=== PATIENT | female | born 1940 | race Caucasian/White ===

== ENCOUNTER → 2023-05-30 | Outpatient (CLI) | payer SELFPAY ==
--- NOTE | 2023-05-31 07:40 | PFT ---
INTRODUCTION: The patient is a 82-year-old female who presents for pulmonary function studies secondary to a diagnosis of cough. Respiratory therapy reported good patient effort. Bronchodilators were used during testing. INTERPRETATION: Forced expiration spirometry demonstrates no evidence of a large airways obstructive ventilatory defect. There was no significant response to aerosolized bronchodilators. Spirograms are of good quality and plateau normally. Body plethysmography was performed and revealed a decreased TLC to 3.53 L, 65% of predicted, indicative of a moderate restrictive ventilatory impairment. Diffusing capacity by single breath CO is reduced at 63% of predicted. IMPRESSION: Moderate restrictive ventilatory impairment with symmetric reduction in diffusing capacity.
== END | disposition home or self-care (01) ==
PROVIDERS: Referring Provider Internal Medicine Critical Care Medicine; Visit Provider Internal Medicine Critical Care Medicine
DX: R05.9 Cough, unspecified (principal)
CPT/HCPCS: 94060; 94726; 94729

== ENCOUNTER 2024-03-13 19:05 | Inpatient (IN) | payer OTHER, SELFPAY ==
[2024-03-13] VITALS (11 sets, daily range): BP systolic 162–208; BP diastolic 73–89; PULSE 80–111; RESP 12–21; TEMP 36.2–37.1; O2SAT 89–100; BMI 22.0
--- NOTE | 2024-03-13 19:40 | RAD_ITS ---
STUDY: X-RAY CHEST REASON FOR EXAM: Female, 83 years old. Productive cough, dyspnea and history of pulmonary TECHNIQUE: PA and lateral views of the chest. COMPARISON: None. FINDINGS: There are interstitial fibrotic changes of the lungs. Elevated right hemidiaphragm. Right-sided pleural thickening and volume loss. Normal size heart. Normal mediastinum and whitley. Normal visualized pulmonary arteries. Normal visualized aortic arch and descending thoracic aorta. Normal visualized thoracic spine. Normal visualized ribs, clavicles, and shoulders. There is no demonstrated abnormality of the visualized soft tissue structures of the upper abdomen. RAD/Chest PA and Lateral IMPRESSION: Fibrosis and volume loss but no definite pneumonia or atelectasis. CT may be useful. Electronically Signed: Everett Krishnamurthy MD at 20:09 EDT ,
[2024-03-13 19:47] LABS: Anion Gap 6 (5-15); BUN 26 mg/dL (7-18); BUN/Creat Ratio 34.9 RATIO (10-20); Calcium,Total 9.4 mg/dL (8.5-10.1); Chloride 88 mmol/L (98-107); Creatinine, Serum 0.74 mg/dL (0.55-1.02); EST Glomerular Filtration Rate 79 mL/min (>60); Est Glom Filt Rate - Afr Amer 95 mL/min (>60); Glucose 119 mg/dL (74-106); Potassium 4.8 mmol/L (3.5-5.1); Sodium Level 124 mmol/L (136-145)
--- NOTE | 2024-03-13 19:52 | ED.VIS.DYS ---
HPI History of Present Illness Chief Complaint: Shortness of Breath Detail of Chief Complaint: Shortness of breath, cough history of pulmonary fibrosis Informant: patient, spouse/S.O. and family Onset/Context/Timing Onset: Weeks (Symptoms started 1 week ago.) Context: sudden Timing: Continuous and Waxes and wanes Quality: Positive for Dyspnea on exertion; Negative for Orthopnea, PND or Wheezing Current Severity: Mild Maximum Severity: Moderate Worsened by: Exertion and Coughing Relieved by: Nothing Associated Symptoms cough, rhinorrhea, sore throat and white sputum; Negative for post nasal drip, ear pain, fever, subjective, chills, sweats, clear sputum or yellow sputum Chest Pain: Positive for None Narrative Narrative: Patient is an 83-year-old woman. She has history of pulmonary fibrosis. Dr. Key office note authored September 02, 2023 indicates patient's pulmonary function test were consistent with pulmonary fibrosis. No further testing was done because of patient's concern for cost. At that time there was concern that she was desaturating with ambulation. She declined any testing. Patient was ordered and has a oxygen concentrator at home. Patient was seen this week by Layne Luong. She was seen for shortness of breath. It was felt by nurse practitioner Laura that this was due to her pulmonary fibrosis. NIOX performed in office returned with normal results. This indicates that course of steroids would not be beneficial. Patient does have a cough. The cough is more productive than normal. Color of the sputum is not unchanged from baseline. She denies fever, chills night sweats. She does report mild congestion, which is chronic. She denies ear pain. She does report mild sore throat. There is no change in voice. She does endorse dyspnea with exertion. This is a chronic issue. states they have been monitor pulse ox and has been ranging between 91 and 92%. As previously mentioned she does have a oxygen concentrator at home. She has been using it. There is no complaint of nausea, vomit diarrhea. She has no urologic symptoms. There is no history of PE or DVT. Denies leg pain, swelling discoloration. She denies chest pain, history of congestive heart failure. She denies orthopnea or PND. PE Risk Factors: Negative for Cancer, OCP + Smoking + > 35, Prior DVT or PE, Recent immobilization, Recent surgery or Recent travel Prior similar symptoms: Yes (Office visit in August with Dr. Perez and office visit with nurse stephie) Recent Illness/Hospitalization: Yes [facility] Medical History Pulmonary fibrosis Home Medications budesonide-formoterol HFA 160 mcg-4.5 mcg/actuation aerosol inhaler (Symbicort) 2 puff inhalation BID 05/23/23 [History Last Taken Unknown] levothyroxine 88 mcg capsule 88 mcg PO DAILY 05/23/23 [History Last Taken Unknown] losartan 50 mg-hydrochlorothiazide 12.5 mg tablet 1 tab PO DAILY 05/23/23 [History Last Taken Unknown] calcium carbonate-vitamin D3 600 mg-125 unit tablet tab PO 03/10/24 [History Last Taken Unknown] Allergy/AdvReac Type Severity Reaction Status Date / Time Sulfa (Sulfonamide Allergy PT UNSURE Verified 03/13/24 19:08 Antibiotics) OF REACTION Family History Sister Asthma Social History Smoking Status: Never smoker ROS ROS ED Constitutional Constitutional ED: Denies chills, fever(s), sweats or weight loss Eyes Eyes: Denies blurry vision or change in vision ENT ENT ED: Reports rhinorrhea; Denies ear pain or sore throat Cardiovascular Cardiovascular: Denies chest pain, orthopnea, palpitations or paroxysmal nocturnal dyspnea Respiratory/Chest Respiratory/Chest: Reports cough, dyspnea, dyspnea on exertion and sputum; Denies orthopnea or paroxysmal nocturnal dyspnea Gastrointestinal Gastrointestinal: Denies abdominal pain, diarrhea, nausea or vomiting Musculoskeletal Musculoskeletal: Denies arthralgias or myalgias Integumentary Denies rash Neurologic Neurologic: Denies headache(s) or paresthesias Hematologic/Lymphatic Hematologic/Lymphatic: Denies easy bleeding or easy bruising EXAM Physical Exam Const Vital Signs: 03/13/24 19:09 03/13/24 19:05 03/13/24 19:18 Temperature 97.1 F L 97.1 F L Temperature Source Temporal Temporal Pulse Rate 111 H 111 H Respiratory Rate 18 18 Respiratory Effort Short of Breath Respiratory Depth Shallow Respiratory Pattern Tachypnea Blood Pressure 208/89 H 208/89 H Blood Pressure Mean 128 128 Pulse Ox 89 89 Oxygen Delivery Method Room Air Room Air Nasal Cannula Oxygen Flow Rate (L/min) 2 03/13/24 19:33 03/13/24 20:05 03/13/24 20:47 Temperature Temperature Source Pulse Rate 99 Respiratory Rate 16 Respiratory Effort Respiratory Depth Respiratory Pattern Blood Pressure 181/87 H 165/73 H Blood Pressure Mean 118 103 Pulse Ox 98 100 Oxygen Delivery Method Nasal Cannula Nasal Cannula Oxygen Flow Rate (L/min) 2 03/13/24 21:00 03/13/24 22:00 Temperature Temperature Source Pulse Rate 80 82 Respiratory Rate 12 19 H Respiratory Effort Respiratory Depth Respiratory Pattern Blood Pressure 162/75 H 167/74 H Blood Pressure Mean 104 105 Pulse Ox 99 98 Oxygen Delivery Method Nasal Cannula Nasal Cannula Oxygen Flow Rate (L/min) 2 2 Blood pressure readings are elevated. There is is a history of elevated blood pressure readings reviewing prior records. Positive well developed and cachectic General Appearance ED: well developed, cachectic, NAD and pallor Nutritional Appearance: cachectic HEENT Reports dry mucous membranes HEENT Narrative: Nares patent. Posterior pharynx is normal. atraumatic Mouth ED: Yes dry mucous membranes Mouth: dry mucous membranes Eyes PERRL and EOMs intact bilaterally General Eye ED: Negative for pale conjunctiva or scleral icterus Neck no lymphadenopathy, supple, no meningeal signs and no JVD Resp normal respiratory effort and No clear to auscultation bilaterally Resp Narrative: End inspiratory rales are noted. This is most likely due to her pulmonary fibrosis. Cardio regular rhythm, S1 normal heart sound, S2 normal heart sound and no murmurs Rate: tachycardic GI non-tender, non-distended and no masses Auscultation: normoactive bowel sounds Back/Spine normal to inspection Extremity normal to inspection Extremity Narrative: There is no asymmetry, swelling, discoloration, leg vein distention, palpable cords or tenderness along the distribution of the deep venous system. Neuro oriented x3 and CN's II-XII intact bilaterally Tim Coma Scale: document GCS findings Spontaneous Obeys Commands Oriented 15 Sensorium / Orientation: alert Skin no wounds and skin turgor normal General Skin Exam: pallor; Negative for jaundice Lesions: no lesions MDM MDM MDM Narrative Medical decision making narrative: Since there is been a change in patient's sputum production will obtain x-ray to determine if she has had pneumonia. She has had pneumonia in the past. CBC was obtained assess white count differential. BMP to assess renal function especially since she her blood pressure is elevated. Her review of prior records in case patient has pulmonary fibrosis. It was noted in Dr. Perez's note the patient did not want any other testing due to concerns for cost. History & Record Review Additional record(s) reviewed:: Prior outpatient record and Prior labs Lab Data Attestation: I reviewed the patient's lab results. Lab results narrative: Sodium is 124 with a chloride of 88. CO2 is normal. Anion gap is normal. Patient is not on a diuretic. CBC is unremarkable. There are no prior labs for comparison. Fractional excretion sodium is 0.6 which would indicate prerenal. Urine osmolarity is 243. This would not indicate SIADH. Labs: Laboratory Results - last 24 hr 03/13/24 03/13/24 19:26 21:41 WBC 8.7 RBC 4.64 Hgb 12.3 Hct 37.8 MCV 81.5 MCH 26.5 L MCHC 32.5 RDW Std Deviation 39.5 RDW Coeff of [place] 13.3 Plt Count 447 MPV 8.6 Sodium 124 L Potassium 4.8 Chloride 88 L Carbon Dioxide 30.0 Anion Gap 6 BUN 26 H Creatinine 0.74 Estim Creat Clear Calc 50.00 Est GFR (MDRD) Af Amer 95 Est GFR (MDRD) Non-Af 79 BUN/Creatinine Ratio 34.9 H Glucose 119 H Serum Osmolality 277 L Lactic Acid 1.0 Calcium 9.4 Urine Osmolality 243 Ur Random Sodium 57 Urine Chloride 57 Radiography Chest X-Ray - ED: 2 View (Patient has increased markings on the right. The trachea is deviated to the right. There appears to be fullness/mass in the hilum. There is evidence of chronic changes on the left. Osseous structures unremarkable.) and Read by ED Physician Diagnostic Testing: Clinical Impression(s) from Imaging Studies Chest X-Ray 03/13/24 19:40 IMPRESSION: Fibrosis and volume loss but no definite pneumonia or atelectasis. CT may be useful. Electronically Signed: Everett Krishnamurthy MD at 20:09 EDT , Chest CT 03/13/24 21:01 IMPRESSION: 1. Right lower lobe pneumonia. 2. Bilateral cylindrical bronchiectasis, scarring, and volume loss. Electronically Signed: Everett Krishnamurthy MD at 22:36 EDT , EKG Initial EKG: Attestation: I personally reviewed and interpreted this EKG as follows: Interpretation: Sinus Rhythm (Rate is 96. There is decreased anterior force. OK interval is 168 ms. QS duration 78 ms. QT duration 324 ms. [place] is normal.) Management Discussion w/another healthcare provider: Hospitalist Treatment and Re-Evaluation :: Had lengthy discussion with , son and patient regarding need for admission. Patient was initially hesitant. After explaining risk benefits patient and family agreeable with admission to the hospital. Discharge Plan Triage Chief Complaint: Shortness of Breath ED Provider: Ramón Guo Dx/Rx/DC Orders Clinical Impression: Right lower lobe pneumonia, Pulmonary fibrosis, Hypoxia, Acute hyponatremia, Hypertension, Sinus tachycardia seen on repairer helper Prescriptions: No Action budesonide-formoterol [Symbicort] 160-4.5 mcg/actuation HFA aerosol inhaler 2 puff inhalation BID levothyroxine 88 mcg capsule 88 mcg PO DAILY losartan-hydrochlorothiazide 50-12.5 mg tablet 1 tab PO DAILY calcium carbonate-vitamin D3 600-125 mg-unit tablet PO Primary Care Provider: Cally Ludwig NP Referrals: Cally Ludwig NP, [facility] DIRECTOR-C [Primary Care Provider] - Disposition Disposition: Acute Care Hospital [facility]
[2024-03-13 19:55] LABS: Hematocrit 37.8 % (37-47); Hemoglobin 12.3 g/dL (12.0-15.0); Mean Corp Hgb Conc 32.5 g/dL (32-36); Mean Corpuscular Hgb 26.5 pg (27.0-32.0); Mean Corpuscular Volume 81.5 fL (81-99); Mean Platelet Vol. 8.6 fl (6.2-12.0); Platelet Count 447 K/mm3 (150-450); RBC Distribution Width CV 13.3 % (11.6-14.6); RBC Distribution Width SD 39.5 fl (35.1-43.9); Red Blood Count 4.64 M/mm3 (4.2-5.4); White Blood Count 8.7 K/mm3 (4.4-11.0)
[2024-03-13] MEDS: Labetalol (Prefilled) 20 MG/4 ML 10 MG IV (20:07)
--- NOTE | 2024-03-13 21:01 | CT_ITS ---
INDICATION: Hyponatremia, weight loss, deviation of trachea EXAMINATION: CT CHEST WITH CONTRAST - CT Chest W/ Contrast Injection TECHNIQUE: Helically acquired images were obtained of the chest following IV contrast. A radiation dose optimization technique was used for this scan. IV Contrast dosage and agent: COMPARISON: Chest x-ray earlier today FINDINGS: LUNGS, PLEURA AND LARGE AIRWAYS: Severe bilateral apical scarring and pleural thickening. Significant scarring and volume loss in the right lung. Diffuse cylindrical bronchiectasis. Alveolar density in the posterior right lower lobe consistent with pneumonia. No pleural effusion or thickening. No pneumothorax. THYROID: No thyroid lesions. HEART AND PERICARDIUM: Heart size is normal. No pericardial effusion. VESSELS: Thoracic aorta is not dilated. No aortic dissection. No obvious central pulmonary embolism although this study was not performed with the pulmonary embolism protocol. MEDIASTINUM AND MARC: No mediastinal or hilar adenopathy. Esophagus is unremarkable. No hiatal hernia. UPPER ABDOMEN: No acute pathology. BONES: Mild levoscoliosis of the thoracolumbar spine. CT/Chest WITH Contrast IMPRESSION: 1. Right lower lobe pneumonia. 2. Bilateral cylindrical bronchiectasis, scarring, and volume loss. Electronically Signed: Everett Krishnamurthy MD at 22:36 EDT ,
[2024-03-13 21:54] LABS: Urine Chloride 57 mmol/L (Not Establ.); Urine Sodium 57 mmol/L (Not Establ.)
[2024-03-13 22:04] LABS: Osmolality, Urine 243 mOsm/KG
[2024-03-13 22:04] LABS: Osmolality, Serum 277 mOsm/KG (280-301)
--- NOTE | 2024-03-13 22:56 | HP.PCM.HOS_ITS ---
[facility] - General General Date of Admission: 03/13/24 Date of Service: 03/13/24 Chief Complaint: SOB. HPI Narrative MARILU SANDY, is a 83 F with a past medical history of essential hypertension; on Losartan/HCTZ, hypothyroidism, pulmonary fibrosis; on Symbicort, chronic bronchitis and osteoarthritis; with chronic Left knee pain who presents to [facility] ER complaining of shortness of breath. Ms. Sandy reports her symptoms began a little over 1 week prior to admission with the intermittent bouts of dyspnea on exertion that progressed to shortness of breath at rest. She also admits to a runny nose with a nonproductive cough and malaise but she denies associated fever, chills, nausea, vomiting, wheezing, chest pain or excessive water intake. In the ER she was noted to have a CT scan of the chest positive for right lower lobe infiltrate consistent with Community- acquired Pneumonia complicated by clinical evidence of respiratory insufficiency and laboratory evidence of hyponatremia of 124 mmol/L present on admission due to adverse drug reaction to HCTZ and she was then admitted to the general medical floor for ongoing care for stay that is expected to extend beyond 2 midnights. [facility] Medical History Hypothyroidism Pulmonary fibrosis Home Medications levothyroxine 88 mcg capsule 88 mcg PO DAILY 05/23/23 [History Last Taken Unknown] losartan 50 mg-hydrochlorothiazide 12.5 mg tablet 1 tab PO DAILY 05/23/23 [History Last Taken Unknown] Allergy/AdvReac Type Severity Reaction Status Date / Time Sulfa (Sulfonamide Allergy PT UNSURE Verified 03/13/24 19:08 Antibiotics) OF REACTION hydrochlorothiazide AdvReac Unknown Other Verified 03/14/24 00:12 Family History Sister Asthma Social History Smoking Status: Never smoker ROS ROS Narrative Review of systems: General: Patient denies fever or chills. HENT: Patient admits to runny nose but denies sore throat or ear pain. EYES: Denies changes in vision or discharge from eyes. Resp: Patient admits to dyspnea on exertion that progressed to shortness of breath at rest with nonproductive cough. Cardiac: Denies chest pain, palpitations or heart racing. GI: Denies abdominal pain, denies changes in bowel, denies nausea or vomiting. : Denies changes in urination Extremity: Denies swelling Musculoskeletal: Feels somewhat generally weak and unwell but denies arthralgias or myalgias. Neuro: Patient denies headache, paresthesias or focal neurologic weakness. Heme: Denies any bleeding or bruising Skin: Denies rashes Psychiatric: No complaints voiced related to uncontrolled depression or anxiety. Endocrine: No polyuria, polydipsia or polyphagia. The rest of the 14 point ROS was negative except for positives in HPI. Vital Signs Vital Signs Vital Signs: 03/13/24 19:09 03/13/24 19:05 03/13/24 19:18 Temperature 97.1 F L 97.1 F L Temperature Source Temporal Temporal Pulse Rate 111 H 111 H Respiratory Rate 18 18 Respiratory Effort Short of Breath Respiratory Depth Shallow Respiratory Pattern Tachypnea Blood Pressure 208/89 H 208/89 H Blood Pressure Mean 128 128 Pulse Ox 89 89 Oxygen Delivery Method Room Air Room Air Nasal Cannula Oxygen Flow Rate (L/min) 2 03/13/24 19:33 03/13/24 20:05 03/13/24 20:47 Temperature Temperature Source Pulse Rate 99 Respiratory Rate 16 Respiratory Effort Respiratory Depth Respiratory Pattern Blood Pressure 181/87 H 165/73 H Blood Pressure Mean 118 103 Pulse Ox 98 100 Oxygen Delivery Method Nasal Cannula Nasal Cannula Oxygen Flow Rate (L/min) 2 03/13/24 21:00 03/13/24 22:00 Temperature Temperature Source Pulse Rate 80 82 Respiratory Rate 12 19 H Respiratory Effort Respiratory Depth Respiratory Pattern Blood Pressure 162/75 H 167/74 H Blood Pressure Mean 104 105 Pulse Ox 99 98 Oxygen Delivery Method Nasal Cannula Nasal Cannula Oxygen Flow Rate (L/min) 2 2 Weight Weight: 140 lb 14.006 oz Body Mass Index (BMI) 22.0 Physical Exam Const alert, oriented x3, no apparent distress and average body habitus General Appearance: cooperative HEENT normocephalic, head/scalp atraumatic and hearing grossly normal bilaterally HEENT Narrative: Mucous membranes dry. Eyes PERRL and EOMs intact bilaterally Neck no lymphadenopathy and supple Resp Resp Narrative: Diminished breath sounds throughout with end expiratory rales noted. Auscultation: rales Cardio regular rate and regular rhythm GI normal to inspection, nondistended, normoactive bowel sounds, soft to palpation, non-tender and non-distended Extremity normal to inspection, full ROM and no clubbing, cyanosis or edema Skin Skin Narrative: Patient has no evidence of abscess, rash or jaundice. Neuro oriented x3, CN's II-XII intact bilaterally, moves all extremities and no focal motor deficits Sensorium / Orientation: awake, alert, oriented to person, oriented to place and oriented to time Speech: speech normal Psych affect normal Results Medical Records Data Attestation: I reviewed the patient's medical records Lab / Micro Data Attestation: I reviewed the patient's lab results. 03/13/24 19:26 03/13/24 19:26 Labs: Laboratory Results - last 24 hr 03/13/24 19:26: WBC 8.7, RBC 4.64, Hgb 12.3, Hct 37.8, MCV 81.5, MCH 26.5 L, MCHC 32.5, RDW Std Deviation 39.5, RDW Coeff of [place] 13.3, Plt Count 447, MPV 8.6, Sodium 124 L, Potassium 4.8, Chloride 88 L, Carbon Dioxide 30.0, Anion Gap 6, BUN 26 H, Creatinine 0.74, Estim Creat Clear Calc 50.00, Est GFR (MDRD) Af Amer 95, Est GFR (MDRD) Non-Af 79, BUN/Creatinine Ratio 34.9 H, Glucose 119 H, Serum Osmolality 277 L, Lactic Acid 1.0, Calcium 9.4 03/13/24 21:41: Urine Osmolality 243, Ur Random Sodium 57, Urine Chloride 57 Imaging Radiology Impression Chest X-Ray 03/13/24 19:40 IMPRESSION: Fibrosis and volume loss but no definite pneumonia or atelectasis. CT may be useful. Electronically Signed: Everett Krishnamurthy MD at 20:09 EDT , Chest CT 03/13/24 21:01 IMPRESSION: 1. Right lower lobe pneumonia. 2. Bilateral cylindrical bronchiectasis, scarring, and volume loss. Electronically Signed: Everett Krishnamurthy MD at 22:36 EDT , Assessment & Plan Assessment/Plan (1) Right lower lobe pneumonia: QUALIFIERS: Pneumonia type: due to unspecified organism Qualified Code(s): J18.9 - Pneumonia, unspecified organism (2) Pulmonary fibrosis: (3) Respiratory insufficiency: (4) Acute hyponatremia: (5) Adverse drug reaction: QUALIFIERS: Encounter type: initial encounter Qualified Code(s): T50.905A - Adverse effect of unspecified drugs, medicaments and biological substances, initial encounter PLAN: Plan 1. Right lower lobe pneumonia evident on CT likely community-acquired in origin in the setting of known pulmonary fibrosis - Admit to general medical floor. Continue broad-spectrum antibiotics with IV Rocephin and IV azithromycin and await culture and sensitivity data. Start Solu-Medrol 40 mg IV every 8 hours close prophylactic Protonix. Check urine antigens to Legionella and Streptococcus pneumonia. Resume Symbicort as previous. Start Mucinex 600 mg p. o. twice daily scheduled. Give Tylenol as needed pain or fever. 2. Respiratory insufficiency arising from #1 - Wean supplemental oxygen as tolerated. 3. Hyponatremia of 124 mmol/L present on admission likely due to adverse drug reaction to HCTZ complicating #1 & #2 - Start NS IV fluid at 70 cc/h and recheck BMP every 6 hours to ensure rise of no more than 8 to 10 mmol/L per 24-hour period. Check serum and urine osmolality. HCTZ will be added to the list of allergies to prevent recurrence. 4. Essential hypertension - Resume home regimen with losartan 50 mg daily only plus give as needed IV hydralazine for systolic blood pressure greater than 160 mmHg. 5. Hypothyroidism - Continue Synthroid and check TSH. 6. History of chronic bronchitis - Noted. 7. Osteoarthritis; with chronic Left knee pain - Give Tylenol as needed. 8. DVT prophylaxis - Lovenox 40 mg sq daily. Total time: Approximately 75 minutes. Charges/Coding Visit Charges Inpatient E&M: 72892 Init Hosp L3
[2024-03-13] MEDS: Ceftriaxone 2 GM in 0.9% Normal Saline (50mL MB+) 50 ML IV (23:18)
[2024-03-13] MEDS: cloNIDine HCl 0.1 MG Tablet PO (23:29)
[2024-03-13 23:35] LABS: Lactic Acid 0.8 mmol/L (0.4-1.9)
[2024-03-14] VITALS (9 sets, daily range): BP systolic 125–157; BP diastolic 61–80; PULSE 76–98; RESP 16–20; TEMP 36.4–36.7; O2SAT 87–100; BMI 20.9
[2024-03-14] MEDS: Azithromycin 500 MG in Dextrose 5%-Water (250mL Bag) 250 ML 250 MG IV ×2 (00:33→10:18)
[2024-03-14] MEDS: 0.9% Normal Saline (1000mL) 1,000 ML 70 ML IV (01:12)
[2024-03-14] MEDS: Levothyroxine 88 MCG Tablet PO (05:18)
[2024-03-14] MEDS: 0.9% Saline Lock 10 ML Syringe IV ×3 (05:19→21:21)
[2024-03-14 05:52] LABS: Absolute Lymphocyte Count 1.32 X10^3/uL (0.83-4.51); Absolute Neutrophil Count 4.6 X10^3/uL (2.0-7.7); Basophil# 0.08 X10^3/uL; Basophil% 1.1 % (0-1); Eosinophil# 0.21 X10^3/uL; Eosinophils% 2.8 % (0-5); Hematocrit 32.7 % (37-47); Hemoglobin 10.5 g/dL (12.0-15.0); Lymphocyte # 1.32 X10^3/ul (0.83-4.51); Lymphocyte % 17.4 % (19-41); Mean Corp Hgb Conc 32.1 g/dL (32-36); Mean Corpuscular Volume 80.9 fL (81-99); Mean Platelet Vol. 8.9 fl (6.2-12.0); Monocyte# 1.34 X10^3/uL; Monocyte% 17.7 % (0-10); NRBC Flagged by Analyzer 0 % (0-5); Neutrophil # 4.59 X10^3/uL (2.7-7.7); Neutrophil % 60.3 % (47-70); Platelet Count 400 K/mm3 (150-450); RBC Distribution Width CV 13.3 % (11.6-14.6); RBC Distribution Width SD 39.5 fl (35.1-43.9); Red Blood Count 4.04 M/mm3 (4.2-5.4); White Blood Count 7.6 K/mm3 (4.4-11.0)
--- NOTE | 2024-03-14 06:10 | RAD_ITS ---
STUDY: X-RAY CHEST REASON FOR EXAM: Female, 83 years old. Chest pain/pressure TECHNIQUE: PA and lateral views of the chest. COMPARISON: 03/13/2024 FINDINGS: Lung aldana show no interval change compared to the previous study, there is volume loss in the right hemithorax with [id number] midline shift of the trachea and nonspecific pleural thickening in the right apex. Diffuse interstitial fibrotic scarring noted throughout both lung aldana right worse than left. There is no demonstrated pleural abnormality. Normal size heart. Normal mediastinum and whitley. Normal visualized pulmonary arteries. Normal visualized aortic arch and descending thoracic aorta. Normal visualized thoracic spine. Normal visualized ribs, clavicles, and shoulders. There is no demonstrated abnormality of the visualized soft tissue structures of the upper abdomen. RAD/Chest PA and Lateral IMPRESSION: No interval change Electronically Signed: Mani Borrego MD at 8:49 EDT ,
[2024-03-14 06:17] LABS: ALB/GLOB Ratio 0.6 RATIO (0.9-2.4); AST(SGOT) 21 U/L (15-37); Alanine Aminotransfer ALT/SGPT 21 U/L (13-56); Albumin, Serum 2.7 g/dL (3.2-5.0); Alkaline Phosphatase 112 U/L (45-117); Anion Gap 7 (5-15); BUN 24 mg/dL (7-18); BUN/Creat Ratio 34.1 RATIO (10-20); Chloride 92 mmol/L (98-107); EST Glomerular Filtration Rate 84 mL/min (>60); Est Glom Filt Rate - Afr Amer 102 mL/min (>60); Estimated Creatinine Clearance 49.15 ml/min; Globulin 4.6 g/dL (2.2-4.2); Glucose 79 mg/dL (74-106); Potassium 4.2 mmol/L (3.5-5.1); Protein, Total 7.3 g/dL (6.4-8.2); Sodium Level 127 mmol/L (136-145)
[2024-03-14] MEDS: Ceftriaxone 1 GM/50 ML BAG IV (08:52)
[2024-03-14] MEDS: Ascorbic Acid 500 MG Tablet 1000 MG PO ×2 (08:55→18:37)
[2024-03-14] MEDS: Lactobacillis Acidophilus 2 CAP PO ×2 (08:55→21:20)
[2024-03-14] MEDS: Pantoprazole Sodium 40 MG Tablet PO (08:56)
[2024-03-14] MEDS: Losartan Potassium 50 MG Tablet PO (08:56)
[2024-03-14] MEDS: Zinc Sulfate 50 mg zinc (220 mg) ORAL capsule PO (08:57)
[2024-03-14] MEDS: guaiFENesin 600 MG Tablet PO ×2 (09:06→21:20)
[2024-03-14] MEDS: Cholecalciferol (Vit D3) 125 MCG CAPSULE (5,000 UNITS) PO (09:06)
[2024-03-14 12:34] LABS: Anion Gap 7 (5-15); BUN 23 mg/dL (7-18); BUN/Creat Ratio 24.9 RATIO (10-20); Chloride 91 mmol/L (98-107); Creatinine, Serum 0.92 mg/dL (0.55-1.02); EST Glomerular Filtration Rate 61 mL/min (>60); Est Glom Filt Rate - Afr Amer 74 mL/min (>60); Estimated Creatinine Clearance 42.74 ml/min; Glucose 304 mg/dL (74-106); Potassium 4.5 mmol/L (3.5-5.1); Sodium Level 124 mmol/L (136-145)
--- NOTE | 2024-03-14 14:37 | PCM.PN.HOSP ---
Reason for Visit Reason for Visit: Shortness of breath Subjective Subjective Patient indicates her breathing is better. Does not know if she is ever been hyponatremic previously. States she drinks about 2 L of water daily and eats a normal diet however lately her diet has been decreased as she said decreased appetite. Feels like she has more energy today. Objective Data Objective Data Vital Signs: Vital Signs Temp Pulse Resp BP Pulse Ox O2 Del Method O2 Flow Rate 97.6 F L 79 16 144/64 H 98 Nasal Cannula 2 03/14/24 08:40 03/14/24 08:40 03/14/24 08:40 03/14/24 08:40 03/14/24 08:40 03/14/24 08:44 03/14/24 08:44 Oxygen Flow Rate (L/min) 2 Oxygen Delivery Method Nasal Cannula Weight: 60.555 kg Body Mass Index (BMI) 20.9 Intake & Output: Intake and Output for Last 24 Hours 03/12/24 03/13/24 03/14/24 23:59 23:59 23:59 Intake Total 50 / 50 955 / 955 Balance 50 50 955 / 955 Lab / Micro Data 03/14/24 05:12 03/14/24 11:52 Labs: Laboratory Results - last 24 hr 03/13/24 19:26: WBC 8.7, RBC 4.64, Hgb 12.3, Hct 37.8, MCV 81.5, MCH 26.5 L, MCHC 32.5, RDW Std Deviation 39.5, RDW Coeff of [place] 13.3, Plt Count 447, MPV 8.6, Sodium 124 L, Potassium 4.8, Chloride 88 L, Carbon Dioxide 30.0, Anion Gap 6, BUN 26 H, Creatinine 0.74, Estim Creat Clear Calc 50.00, Est GFR (MDRD) Af Amer 95, Est GFR (MDRD) Non-Af 79, BUN/Creatinine Ratio 34.9 H, Glucose 119 H, Serum Osmolality 277 L, Lactic Acid 1.0, Calcium 9.4 03/13/24 21:41: Urine Osmolality 243, Ur Random Sodium 57, Urine Chloride 57 03/13/24 23:00: Lactic Acid 0.8 03/14/24 05:12: WBC 7.6, RBC 4.04 L, Hgb 10.5 L, Hct 32.7 L, MCV 80.9 L, MCH 26.0 L, MCHC 32.1, RDW Std Deviation 39.5, RDW Coeff of [place] 13.3, Plt Count 400, MPV 8.9, Immature Gran % (Auto) 0.700, Neut % (Auto) 60.3, Lymph % (Auto) 17.4 L, [place] % (Auto) 17.7 H, Eos % (Auto) 2.8, Baso % (Auto) 1.1 H, Absolute Neuts (auto) 4.6, Absolute Lymphs (auto) 1.32, Nucleated RBC % 0, Sodium 127 L, Potassium 4.2, Chloride 92 L, Carbon Dioxide 28.0, Anion Gap 7, BUN 24 H, Creatinine 0.70, Estim Creat Clear Calc 49.15, Est GFR (MDRD) Af Amer 102, Est GFR (MDRD) Non-Af 84, BUN/Creatinine Ratio 34.1 H, Glucose 79, Calcium 9.0, Total Bilirubin 0.30, AST 21, ALT 21, Alkaline Phosphatase 112, Total Protein 7.3, Albumin 2.7 L, Globulin 4.6 H, Albumin/Globulin Ratio 0.6 L 03/14/24 11:52: Sodium 124 L, Potassium 4.5, Chloride 91 L, Carbon Dioxide 26.0, Anion Gap 7, BUN 23 H, Creatinine 0.92, Estim Creat Clear Calc 42.74, Est GFR (MDRD) Af Amer 74, Est GFR (MDRD) Non-Af 61, BUN/Creatinine Ratio 24.9 H, Glucose 304 H, Calcium 9.0 Micro: Microbiology 03/14/24 01:00 Urine, Random Legionella Antigen - Final 03/14/24 01:00 Urine, Random Streptococcus pneumoniae Antigen (M - Final Radiography Diagnostic Testing: Radiology Impression Chest X-Ray 03/13/24 19:40 IMPRESSION: Fibrosis and volume loss but no definite pneumonia or atelectasis. CT may be useful. Electronically Signed: Everett Krishnamurthy MD at 20:09 EDT , Chest CT 03/13/24 21:01 IMPRESSION: 1. Right lower lobe pneumonia. 2. Bilateral cylindrical bronchiectasis, scarring, and volume loss. Electronically Signed: Everett Krishnamurthy MD at 22:36 EDT , Chest X-Ray 03/14/24 06:10 IMPRESSION: No interval change Electronically Signed: Mani Borrego MD at 8:49 EDT , Physical Exam Const alert, oriented x3, no apparent distress, average body habitus and well nourished Constitutional Narrative: Elderly, white female, sitting up in bed, appears comfortable, nontoxic, at bedside HEENT head/scalp atraumatic and moist oral mucous membranes HEENT Narrative: Mallampati 2-3, no thrush Head and Scalp: normocephalic Resp normal respiratory effort, no retractions, no use of accessory muscles and No clear to auscultation bilaterally Resp Narrative: Crackles right base Auscultation: crackles; Negative for rhonchi or wheezes Cardio regular rate, regular rhythm, S1 normal heart sound, S2 normal heart sound, no murmurs, no rub, no gallops and no clicks GI normal to inspection, nondistended, normoactive bowel sounds, soft to palpation and non-tender Extremity no clubbing, cyanosis or edema Extremity Narrative: Pedal pulses are 2+ Neuro oriented x3, moves all extremities and no focal motor deficits Speech: speech normal Psych Psych Narrative: Affect is a bit strange, eye contact is good, patient interacts appropriately and answers all questions appropriately Assessment & Plan Assessment/Plan (1) Acute hyponatremia: (2) Hypoxia: (3) Right lower lobe pneumonia: QUALIFIERS: Pneumonia type: due to unspecified organism Qualified Code(s): J18.9 - Pneumonia, unspecified organism (4) Anemia: PLAN: Plan Right lower lobe pneumonia -Right lower lobe infiltrate with air bronchograms noted on CT of the chest -Interestingly, patient does not have leukocytosis or left shift however she does have worsening shortness of breath and sputum production -Strep pneumo and Legionella antigens are negative -Continue community-acquired coverage with azithromycin and ceftriaxone -Sputum culture is pending -Continue Mucinex -Continue DuoNebs as ordered -Continue methylprednisolone 40 every 8 -At baseline patient has been intermittently oxygen dependent but not wearing it as of late -Sats are currently 96 to 98% on 2 L -Was trialed on room air and oxygen desaturated to 87% -Follows as outpatient with [place] [facility] Hyponatremia -Baseline sodium is unknown we have no previous data -Continue to hold hydrochlorothiazide -Patient is hyperosmolar -Uric acid is 3.4 -Urine sodium is 57 -Urine osmolality 243 -Will discontinue IV fluids -Check TSH -Repeat sodium in a.m. if does not improve may need direct nephrology involvement for assistance -Could be chronically low due to lung disease or acute pneumonia hard to tell with unknown baseline Anemia -Discontinue IV fluids -Repeat in a.m. and if further drop may need further workup -No signs of acute bleeding History of pulmonary fibrosis -No severe crackling on exam -Continue outpatient follow-up Hypertension -Continue home losartan -Continue as needed hydralazine -With discontinuation of hydrochlorothiazide may need additional medication for blood pressure but will need to continue to monitor Hypothyroidism -Continue Synthroid -Check a.m. TSH Osteoarthritis -Continue as needed Tylenol DVT prophylaxis -Continue subcu Lovenox CODE STATUS -After discussion with patient today DNR CCA no intubation with order placed Charges/Coding Visit Charges Inpatient E&M: 04098 Subs Hosp L2
[2024-03-14 15:08] LABS: Uric Acid 3.4 mg/dL (2.6-6.0)
[2024-03-14 15:44] LABS: Urine Sodium 28 mmol/L (Not Establ.)
[2024-03-14 15:48] LABS: Osmolality, Serum 268 mOsm/KG (280-301)
[2024-03-14 15:54] LABS: Osmolality, Urine 262 mOsm/KG
[2024-03-15] VITALS (9 sets, daily range): BP systolic 149–170; BP diastolic 62–85; PULSE 84–101; RESP 16–18; TEMP 36.6–37.1; O2SAT 85–100
[2024-03-15] MEDS: Levothyroxine 88 MCG Tablet PO (05:22)
[2024-03-15 06:44] LABS: Absolute Lymphocyte Count 1.09 X10^3/uL (0.83-4.51); Basophil# 0.01 X10^3/uL; Basophil% 0.1 % (0-1); Hemoglobin 11.1 g/dL (12.0-15.0); Lymphocyte # 1.09 X10^3/ul (0.83-4.51); Mean Corp Hgb Conc 32.6 g/dL (32-36); Mean Corpuscular Hgb 26.7 pg (27.0-32.0); Mean Corpuscular Volume 81.7 fL (81-99); Mean Platelet Vol. 9.3 fl (6.2-12.0); Monocyte# 0.46 X10^3/uL; Monocyte% 3.4 % (0-10); NRBC Flagged by Analyzer 0 % (0-5); Neutrophil # 11.99 X10^3/uL (2.7-7.7); Neutrophil % 87.9 % (47-70); Platelet Count 433 K/mm3 (150-450); RBC Distribution Width CV 13.2 % (11.6-14.6); RBC Distribution Width SD 39.5 fl (35.1-43.9); Red Blood Count 4.16 M/mm3 (4.2-5.4); White Blood Count 13.6 K/mm3 (4.4-11.0)
[2024-03-15 07:08] LABS: Anion Gap 5 (5-15); BUN 26 mg/dL (7-18); Calcium,Total 9.5 mg/dL (8.5-10.1); Chloride 95 mmol/L (98-107); EST Glomerular Filtration Rate 84 mL/min (>60); Est Glom Filt Rate - Afr Amer 102 mL/min (>60); Estimated Creatinine Clearance 49.15 ml/min; Glucose 150 mg/dL (74-106); Potassium 4.6 mmol/L (3.5-5.1); Sodium Level 128 mmol/L (136-145); Thyroid Stim Hormone (TSH) 0.92 uIU/mL (0.358-3.74)
[2024-03-15] MEDS: Ascorbic Acid 500 MG Tablet 1000 MG PO ×2 (08:10→17:06)
[2024-03-15] MEDS: Lactobacillis Acidophilus 2 CAP PO ×2 (08:11→20:34)
[2024-03-15] MEDS: Losartan Potassium 50 MG Tablet PO (08:11)
[2024-03-15] MEDS: guaiFENesin 600 MG Tablet PO ×2 (08:11→20:34)
[2024-03-15] MEDS: Pantoprazole Sodium 40 MG Tablet PO (08:12)
[2024-03-15] MEDS: Zinc Sulfate 50 mg zinc (220 mg) ORAL capsule PO (08:13)
[2024-03-15] MEDS: Ceftriaxone 1 GM/50 ML BAG IV (09:47)
[2024-03-15] MEDS: 0.9% Saline Lock 10 ML Syringe IV (09:51)
--- NOTE | 2024-03-15 10:24 | NURSING ---
This RN is aware of Vital Signs and Shift Assessment done by BILL Russell.
[2024-03-15] MEDS: Azithromycin 500 MG in Dextrose 5%-Water (250mL Bag) 250 ML 250 MG IV (10:56)
--- NOTE | 2024-03-15 12:00 | CASEMGMT ---
BILL WHITE Assessment: Face to Face with pt for initial transition planning/care coordination assessment. BILL WHITE introduced self and role at [facility], pt voices understanding and consents to assessment. Pt lying in bed in no distress. Pt is A&O x4 and answers all questions appropriately at this time. Care providers, pharmacy, and demographics verified/updated. Admitting Dx: R lower lobe pneumonia & hyponatremia PCP:Oziel Specialists: Cherise, Flight Control Specialist Preferred [facility]acy: [facility] Insurance: [employer], self pay Prescription Benefit: no LNOK: Alistair - Living Arrangements: Pt lives with in a 2 story home, sleeps on main level. Pt stated 2 steps to enter, no handrails. Pt stated she is I with ADLs, needs assistance with IADLs. Transportation: Pt drives her. DME: cane - doesn't use, shower bench, pulse ox, Oxygen concentrator HHC/SNF: Denies Hx of. Pt states no concerns with going home at time of dc. Discussed O2 needs with family, son and want to look at portable oxygen concentrator at [facility]. Noted pt required oxygen with exertion upon testing today. Pt states no further concerns/needs. CM to follow. Advised pt to ask CM if any further question/concerns/needs arise, voices understanding. Pt Goal: Home Plan: Home, will follow for Oxygen Roger KHAN CM
[2024-03-15] MEDS: Cholecalciferol (Vit D3) 125 MCG CAPSULE (5,000 UNITS) PO (13:28)
--- NOTE | 2024-03-15 16:42 | PN_ITS ---
Subjective Subjective Patient seen and examined. Her son was by her bedside. She said she was feling better. She denied any fever, chills, chest pain, palpitations, dizziness, nausea, vomiting or any other symptoms. Review of systems is otherwise negative. Objective Data Objective Data Vital Signs: Vital Signs Temp Pulse Resp BP Pulse Ox O2 Del Method O2 Flow Rate 98.7 F 96 18 165/72 H 98 Nasal Cannula 1 03/15/24 15:22 03/15/24 15:22 03/15/24 15:22 03/15/24 15:22 03/15/24 15:22 03/15/24 15:22 03/15/24 15:22 FiO2 97 03/15/24 03:59 Oxygen Flow Rate (L/min) [ 2 AMBULATING with Oxygen #1] Oxygen Flow Rate (L/min) 1 Oxygen Delivery Method Nasal Cannula Weight: 133 lb 8 oz Body Mass Index (BMI) 20.9 Intake & Output: Intake and Output for Last 24 Hours 03/13/24 03/14/24 03/15/24 23:59 23:59 23:59 Intake Total 50 / 50 2460 / 2660 1155 / 1155 Balance 50 / 50 2460 / 2660 1155 / 1155 Lab / Micro Data 03/15/24 05:21 03/15/24 05:21 Labs: Laboratory Results - last 24 hr 03/15/24 05:21: WBC 13.6 H, RBC 4.16 L, Hgb 11.1 L, Hct 34.0 L, MCV 81.7, MCH 26.7 L, MCHC 32.6, RDW Std Deviation 39.5, RDW Coeff of [place] 13.2, Plt Count 433, MPV 9.3, Immature Gran % (Auto) 0.600, Neut % (Auto) 87.9 H, Lymph % (Auto) 8.0 L, [place] % (Auto) 3.4, Eos % (Auto) 0.0, Baso % (Auto) 0.1, Absolute Neuts (auto) 12.0 H, Absolute Lymphs (auto) 1.09, Nucleated RBC % 0, Sodium 128 L, Potassium 4.6, Chloride 95 L, Carbon Dioxide 28.0, Anion Gap 5, BUN 26 H, Creatinine 0.70, Estim Creat Clear Calc 49.15, Est GFR (MDRD) Af Amer 102, Est GFR (MDRD) Non-Af 84, BUN/Creatinine Ratio 37.0 H, Glucose 150 H, Calcium 9.5, TSH 0.92 Micro: Microbiology 03/15/24 13:12 Sputum, Expectorated/Coughed Gram Stain - Final 03/14/24 01:00 Urine, Random Legionella Antigen - Final 03/14/24 01:00 Urine, Random Streptococcus pneumoniae Antigen (M - Final Physical Exam Const alert, oriented x3 and no apparent distress General Appearance: cooperative and well developed HEENT normocephalic, head/scalp atraumatic, moist oral mucous membranes and oropharynx normal Neck no lymphadenopathy and supple Lymph Lymphatic: no lymphadenopathy noted Resp Resp Narrative: Mildly diminished breath sounds bibasilarly. No wheezes or crackles. On 2L of oxygen by nasal canula Cardio regular rate, regular rhythm, S1 normal heart sound, S2 normal heart sound and no murmurs GI normal to inspection, nondistended, normoactive bowel sounds, soft to palpation and non-tender Extremity normal capillary refill, no clubbing, cyanosis or edema and no calf tenderness General Extremity: no tenderness to palpation of joints or extremities Skin General Skin Exam: no breakdown Neuro CN's II-XII intact bilaterally, no focal motor deficits and no sensory deficits noted Motor Exam: strength 5/5 throughout and general weakness Psych thought process normal, cooperative and affect normal Appearance: appropriate Assessment & Plan Assessment/Plan (1) Acute hyponatremia: (2) Right lower lobe pneumonia: QUALIFIERS: Pneumonia type: due to unspecified organism Qualified Code(s): J18.9 - Pneumonia, unspecified organism PLAN: Plan #Hypoxia due to right lower lobe pneumonia * Currently on 2 L of oxygen. WBC is 13 but it was likely due to the IV Solu- Medrol she was receiving. On IV ceftriaxone and azithromycin. * Urine for strep and Legionella were negative. Sputum culture is pending. IV Solu-Medrol discontinued. * Breathing treatments of bronchodilators. Titrate oxygen to maintain saturation above 90%. * Patient wants oxygen to go home with as she states that she has not been prescribed of oxygen by her daughter had oxygen and patient was using it at home because she felt short of breath. * Will therefore do a walking pulse ox to see if patient qualifies for home oxygen. Patient is self-pay so her son says they would want the oxygen either ways, whether she qualifies or not. * #Right lower lobe pneumonia: as above #Hyponatremia: * Sodium is 128 today. Was 124 on admission. * Patient's son got a copy of her medical records and sodium back in January 2024 was 129 then. * Her hyponatremia may therefore be chronic. * Continue to hold hydrochlorothiazide. * Will monitor sodium. * #History of pulmonary fibrosis: Follow-up with pulmonology on outpatient basis #Hypertension: On losartan. Hydrochlorothiazide discontinued. IV hydralazine as needed. #Hypothyroidism: On Synthroid. #Osteoarthritis: On Tylenol as needed #DVT prophylaxis: Lovenox CODE STATUS: DNR CCA no intubation Charges/Coding Visit Charges Inpatient E&M: 87718 Subs Hosp L2
[2024-03-15] MEDS: hydrALAZINE 20 MG/ML Vial 10 MG IV (21:30)
[2024-03-16 05:05] VITALS: O2SAT 98
[2024-03-16] MEDS: Levothyroxine 88 MCG Tablet PO (05:10)
[2024-03-16 05:12] VITALS: BP 154/70; PULSE 90; RESP 16; TEMP 36.3; O2SAT 98
[2024-03-16 07:03] VITALS: O2SAT 95
[2024-03-16 07:17] LABS: Absolute Lymphocyte Count 1.07 X10^3/uL (0.83-4.51); Absolute Neutrophil Count 12.4 X10^3/uL (2.0-7.7); Basophil# 0.01 X10^3/uL; Basophil% 0.1 % (0-1); Hematocrit 36.1 % (37-47); Hemoglobin 11.6 g/dL (12.0-15.0); Lymphocyte # 1.07 X10^3/ul (0.83-4.51); Lymphocyte % 7.2 % (19-41); Mean Corp Hgb Conc 32.1 g/dL (32-36); Mean Corpuscular Hgb 26.4 pg (27.0-32.0); Mean Platelet Vol. 9.3 fl (6.2-12.0); Monocyte# 1.21 X10^3/uL; Monocyte% 8.2 % (0-10); NRBC Flagged by Analyzer 0 % (0-5); Neutrophil # 12.42 X10^3/uL (2.7-7.7); Platelet Count 460 K/mm3 (150-450); RBC Distribution Width CV 13.5 % (11.6-14.6); White Blood Count 14.8 K/mm3 (4.4-11.0)
[2024-03-16 07:42] LABS: Anion Gap 5 (5-15); BUN 27 mg/dL (7-18); BUN/Creat Ratio 38.5 RATIO (10-20); Calcium,Total 9.6 mg/dL (8.5-10.1); Chloride 94 mmol/L (98-107); EST Glomerular Filtration Rate 84 mL/min (>60); Est Glom Filt Rate - Afr Amer 102 mL/min (>60); Estimated Creatinine Clearance 49.15 ml/min; Glucose 102 mg/dL (74-106); Potassium 4.5 mmol/L (3.5-5.1); Sodium Level 129 mmol/L (136-145)
[2024-03-16 07:46] VITALS: O2SAT 89; O2SAT 95
[2024-03-16 08:52] VITALS: BP 151/75; PULSE 104; RESP 18; TEMP 36.4; O2SAT 95
[2024-03-16] MEDS: guaiFENesin 600 MG Tablet PO (09:05)
[2024-03-16] MEDS: Losartan Potassium 50 MG Tablet PO (09:05)
[2024-03-16] MEDS: Pantoprazole Sodium 40 MG Tablet PO (09:06)
[2024-03-16] MEDS: Ascorbic Acid 500 MG Tablet 1000 MG PO (09:06)
[2024-03-16] MEDS: 0.9% Saline Lock 10 ML Syringe IV (09:06)
[2024-03-16] MEDS: Ceftriaxone 1 GM/50 ML BAG IV (09:06)
[2024-03-16] MEDS: Zinc Sulfate 50 mg zinc (220 mg) ORAL capsule PO (09:06)
[2024-03-16] MEDS: Cholecalciferol (Vit D3) 125 MCG CAPSULE (5,000 UNITS) PO (09:07)
[2024-03-16] MEDS: Lactobacillis Acidophilus 2 CAP PO (09:07)
--- NOTE | 2024-03-16 09:58 | DCINST_ITS ---
Discharge Instructions Diet Discharge Diet: Low fat / Low cholesterol Activity Discharge Activity: Return to Normal Activity Weight Bearing Status: Weight bearing as tolerated Dressing / Incision Call your doctor if you observe: Fever of 101 or Higher, Shortness of breath, Dizziness and Increased palpitations (irregular heartbeat) Follow Up Care Test Results: Test results from this visit will be discussed in further detail at your follow- up appointment, if applicable. Discharge Plan Admission Admit Date/Time: 03/13/24 23:13 Primary Reason for Your Visit: hypoxia, pneumonia Attending Provider: Evelin Rodriguez Primary Care Provider: Cally Ludwig NP Consulting Providers: Mauricio Shearer; Isabel Wheat Instructions Patient Instructions: ED Pneumonia (Adult) Additional Instructions / Restrictions: use oxygen 2L for shortness of breath as needed Discharge Orders/Prescriptions Prescriptions: New losartan 50 mg Tablet 50 mg PO DAILY Qty: 30 2RF metoprolol tartrate 25 mg tablet 25 mg PO BID Qty: 60 2RF Continued levothyroxine 88 mcg capsule 88 mcg PO DAILY Discontinued losartan-hydrochlorothiazide 50-12.5 mg tablet 1 tab PO DAILY Referrals / Follow Up: Cally Ludwig NP, PHARMACY OPERATIONS SPECIALIST-C [Primary Care Provider] - Within 2 Weeks Disposition Disposition (needs filled in before D/C Order can be placed): Home, Self Care
--- NOTE | 2024-03-16 09:59 | PCM.DC.SUM ---
Providers Date of Admission: 03/13/24 Date of Discharge: 03/16/24 Primary Care Physician: Cally Ludwig, DONELLC Reason For Visit: RIGHT LOWER LOBE PNEUMONIA & HYPONATREMIA OF Diagnosis Discharge Diagnosis (1) Acute hyponatremia: Status: Acute Code(s): E87.1 - Hypo-osmolality and hyponatremia (2) Right lower lobe pneumonia: Status: Acute Code(s): J18.9 - Pneumonia, unspecified organism Qualifiers: Pneumonia type: due to unspecified organism Qualified Code(s): J18.9 - Pneumonia, unspecified organism Plan #Hypoxia due to right lower lobe pneumonia Currently on 2 L of oxygen. WBC is 13 but it was likely due to the IV Solu-Medrol she was receiving. On IV ceftriaxone and azithromycin. Urine for strep and Legionella were negative. Sputum culture is pending. IV Solu-Medrol discontinued. Breathing treatments of bronchodilators. Titrate oxygen to maintain saturation above 90%. Patient wants oxygen to go home with as she states that she has not been prescribed of oxygen by her daughter had oxygen and patient was using it at home because she felt short of breath. Will therefore do a walking pulse ox to see if patient qualifies for home oxygen. Patient is self-pay so her son says they would want the oxygen either ways, whether she qualifies or not. #Right lower lobe pneumonia: as above #Hyponatremia: Sodium is 128 today. Was 124 on admission. Patient's son got a copy of her medical records and sodium back in January 2024 was 129 then. Her hyponatremia may therefore be chronic. Continue to hold hydrochlorothiazide. Will monitor sodium. #History of pulmonary fibrosis: Follow-up with pulmonology on outpatient basis #Hypertension: On losartan. Hydrochlorothiazide discontinued. IV hydralazine as needed. #Hypothyroidism: On Synthroid. #Osteoarthritis: On Tylenol as needed #DVT prophylaxis: Lovenox CODE STATUS: DNR CCA no intubation Medications at Discharge Home Medications levothyroxine 88 mcg capsule 88 mcg PO DAILY 05/23/23 doxycycline hyclate 100 mg tablet 100 mg PO BID #10 tabs 03/16/24 losartan 50 mg tablet 50 mg PO DAILY #30 tabs 03/16/24 metoprolol tartrate 25 mg tablet 25 mg PO BID #60 tabs 03/16/24 Hospital Course Operations None Procedures None Summary of Care Provided Minutes Spent on Discharge: 55 Hospital Course: Patient is an 83-year-old female with a past medical history as outlined was admitted through the ED on 03/13/2024 with a complaint of shortness of breath which started about a week prior to admission. It was initially with exertion and subsequently was present at rest. She also had a runny nose and a nonproductive cough with malaise but denied any fever or chills, nausea or vomiting or any other symptoms. Imaging done in the ED showed right lower lobe pneumonia and labs also showed evidence of hyponatremia with sodium of 124. She was therefore admitted and managed for community-acquired pneumonia as well as hyponatremia. Her hydrochlorothiazide was discontinued and she was hydrated with IV fluids. Sodium subsequently trended upwards to 129 at time of discharge. She was started on IV ceftriaxone and azithromycin for pneumonia. Urine for strep and Legionella were negative. Sputum cultures were negative. She did not have any baseline labs in the system but family brought in her baseline labs from her PCP which showed that his sodium back in January was 129 and so it seems like she had chronic hyponatremia. Patient's shortness of breath improved and she was actually weaned off of oxygen. The day before discharge her walking pulse ox had been checked which showed the patient qualified for 2 L of oxygen at home. On the day of discharge however her walking pulse ox showed that she did not require oxygen the patient preferred to be discharged home with oxygen as she says she sometimes got short of breath at home and felt that the oxygen helps. She had been using her daughter's oxygen at home to monitor now the patient did have a concentrator at home. Patient was therefore discharged on p.o. losartan and since hydrochlorothiazide had been discontinued and her blood pressure was still running slightly high, metoprolol 25 mg twice daily was added. She was also given a prescription for p.o. doxycycline 100 mg twice daily for 5 days to treat the pneumonia. She is to follow-up with her primary care doctor within 1 to 2 weeks for repeat sodium to be checked. Patient was seen and examined prior to discharge. She had no active complaints. Review of systems otherwise negative. Labs and vitals reviewed. Home medication reviewed and reconciled. Physical Exam Const alert, oriented x3, no apparent distress, average body habitus and well nourished General Appearance: cooperative, comfortable and well developed Orientation / Consciousness: awake HEENT normocephalic, head/scalp atraumatic, hearing grossly normal bilaterally, moist oral mucous membranes and oropharynx normal Mouth: oral and palatal mucosa normal Eyes PERRL, EOMs intact bilaterally and conjunctivae normal Neck no lymphadenopathy and supple Lymph Lymphatic: no lymphadenopathy noted Resp normal respiratory effort, no retractions, no use of accessory muscles and No clear to auscultation bilaterally Resp Narrative: Mildly diminished breath sounds bibasilarly. No wheezes or crackles. On 2L of oxygen by nasal canula Auscultation: crackles and rales; Negative for rhonchi or wheezes Cardio regular rate, regular rhythm, S1 normal heart sound, S2 normal heart sound, no murmurs, no rub, no gallops and no clicks GI normal to inspection, nondistended, normoactive bowel sounds, soft to palpation, non-tender and non-distended Extremity normal to inspection, full ROM, normal capillary refill, no clubbing, cyanosis or edema and no calf tenderness Extremity Narrative: Pedal pulses are 2+ General Extremity: no tenderness to palpation of joints or extremities Skin no rashes or lesions noted General Skin Exam: no breakdown Neuro oriented x3, CN's II-XII intact bilaterally, moves all extremities, no focal motor deficits and no sensory deficits noted Sensorium / Orientation: awake, alert, oriented to person, oriented to place and oriented to time Speech: speech normal Motor Exam: strength 5/5 throughout and general weakness Psych thought process normal, cooperative and affect normal Appearance: appropriate Weight / BMI Weight Weight: 133 lb 8 oz Body Mass Index (BMI) 20.9 ABG / Lab / Microbiology Data 03/16/24 06:25 03/16/24 06:25 Laboratory: Laboratory Results - last 24 hr 03/16/24 06:25: WBC 14.8 H, RBC 4.40, Hgb 11.6 L, Hct 36.1 L, MCV 82.0, MCH 26.4 L, MCHC 32.1, RDW Std Deviation 40.0, RDW Coeff of [place] 13.5, Plt Count 460 H, MPV 9.3, Immature Gran % (Auto) 0.500, Neut % (Auto) 84.0 H, Lymph % (Auto) 7.2 L, [place] % (Auto) 8.2, Eos % (Auto) 0.0, Baso % (Auto) 0.1, Absolute Neuts (auto) 12.4 H, Absolute Lymphs (auto) 1.07, Nucleated RBC % 0, Sodium 129 L, Potassium 4.5, Chloride 94 L, Carbon Dioxide 30.0, Anion Gap 5, BUN 27 H, Creatinine 0.70, Estim Creat Clear Calc 49.15, Est GFR (MDRD) Af Amer 102, Est GFR (MDRD) Non-Af 84, BUN/Creatinine Ratio 38.5 H, Glucose 102, Calcium 9.6 Microbiology: Microbiology 03/15/24 13:12 Sputum, Expectorated/Coughed Gram Stain - Final 03/15/24 13:12 Sputum, Expectorated/Coughed Respiratory Culture - Preliminary Appears to be normal respiratory kala. Further studies to follow. 03/13/24 23:00 Blood Culture (Wb) - Anticubital Right Blood Culture - Preliminary No growth in 48 hours. 03/13/24 23:05 Blood Culture (Wb) - Left Forearm Blood Culture - Preliminary No growth in 48 hours. 03/14/24 01:00 Urine, Random Legionella Antigen - Final 03/14/24 01:00 Urine, Random Streptococcus pneumoniae Antigen (M - Final D/C Instructions Discharge Diet: Low fat / Low cholesterol Discharge Activity: Return to Normal Activity Weight Bearing Status: Weight bearing as tolerated Call your doctor if you observe: Fever of 101 or Higher, Shortness of breath, Dizziness and Increased palpitations (irregular heartbeat) Meaningful Use Info Meaningful Use Meaningful Use Diagnoses (Choose all that apply): None applicable Ischemic Stroke Statin Dosing Therapy Reference: STATIN DOSE THERAPY REFERENCE: * Patients > 75 years receive moderate or high dose statin therapy. * Patients 75 years or YOUNGER should receive HIGH intensity statin dose unless contraindicated. You will be required to document reason for non-treatment if statin daily dose does not meet guidelines. HIGH DOSE STATIN THERAPY DAILY Atorvastatin > than or = to 40 mg Rosuvastatin > than or = to 20 mg Amlodipine + Atorvastatin > than or = to 2.5/40 mg Ezetimibe + Simvastatin 10/80 mg Simvastatin 80mg Discharge Plan Admission Admit Date/Time: 03/13/24 23:13 Primary Reason for Your Visit: hypoxia, pneumonia Attending Provider: Evelin Rodriguez Primary Care Provider: Cally Ludwig NP Consulting Providers: Mauricio Shearer; Isabel Wheat Instructions Patient Instructions: ED Pneumonia (Adult) Additional Instructions / Restrictions: use oxygen 2L for shortness of breath as needed Discharge Orders/Prescriptions Prescriptions: New losartan 50 mg Tablet 50 mg PO DAILY Qty: 30 2RF metoprolol tartrate 25 mg tablet 25 mg PO BID Qty: 60 2RF doxycycline hyclate 100 mg tablet 100 mg PO BID Qty: 10 0RF Continued levothyroxine 88 mcg capsule 88 mcg PO DAILY Discontinued losartan-hydrochlorothiazide 50-12.5 mg tablet 1 tab PO DAILY Referrals / Follow Up: Cally Ludwig HOSPITAL SECRETARY, HOSPITAL SECRETARY-C [Primary Care Provider] - Within 2 Weeks Disposition Disposition (needs filled in before D/C Order can be placed): Home, Self Care Charges/Coding Visit Charges Inpatient E&M: 55276 Disch Hosp >30min
--- NOTE | 2024-03-16 10:01 | CASEMGMT ---
Per rounds with hospitalist, pt would like to be set up with oxygen. Pt did not qualify for home oxygen this morning but did yesterday. Hospitalist agreeable to sign order for 2L with exertion as pt is self pay. BILL CM into pt room, pt present. Pt states that they have the oxygen concentrator and will keep using this. She does not need to give it back. Offered to set pt up with portability and pt states they will buy a portable oxygen concentrator outright and do not want portable tanks. He states he does not need a rx for this as they will be self pay. Pt and deny any further needs at this time and is ready for dc.
== END 2024-03-16 14:16 | disposition home or self-care (01) | DRG 194 ==
LOC: ED 23:05 → MS3 23:24
PROVIDERS: Internal Medicine; Admitting Provider Internal Medicine; Emergency Provider Emergency Medicine; PCP Nurse Practitioner Primary Care; Visit Provider Student in an Organized Health Care Education/Training Program
DX: J18.9 Pneumonia, unspecified organism (principal); E87.1 Hypo-osmolality and hyponatremia; J84.10 Pulmonary fibrosis, unspecified; E03.9 Hypothyroidism, unspecified; I10 Essential (primary) hypertension; R09.02 Hypoxemia; Z66 Do not resuscitate; Z79.01 Long term (current) use of anticoagulants; Z79.51 Long term (current) use of inhaled steroids; Z79.52 Long term (current) use of systemic steroids; Z79.899 Other long term (current) drug therapy
CPT/HCPCS: 36415; 71046; 71260; 80048; 80053; 82436; 83605; 83930; 83935; 84300; 84443; 84550; 85025; 85027; 87040; 87070; 87205; 87449; 93005; 99285; J7030; J7050; Q9967; A4216; J0696

== ENCOUNTER 2024-06-03 04:22 | Emergency (ER) | payer OTHER, SELFPAY ==
[2024-06-03 04:22] VITALS: BP 176/94; PULSE 87; RESP 16; TEMP 36.2; O2SAT 92; BMI 20.7
--- NOTE | 2024-06-03 04:39 | EKG12_ITS ---
Test Reason : WEAKNESS Blood Pressure : / mmHG Vent. Rate : 074 BPM Atrial Rate : 074 BPM P-R Int : 188 ms QRS Dur : 086 ms QT Int : 386 ms P-R-T Axes : 025 027 050 degrees QTc Int : 428 ms Normal sinus rhythm Normal ECG Confirmed by ELENA GONZÁLES, KANWAL ([id number]), senior technical editor MAYUR CARDONA ([id number]) on 06/04/2024 8:52:54 AM Referred By: Confirmed By:KANWAL PARKER MD
--- NOTE | 2024-06-03 04:39 | RAD_ITS ---
EXAM: XR CHEST, 1 VIEW CLINICAL INDICATION: cough TECHNIQUE: 2 frontal views of the chest. COMPARISON: Previous chest radiographs of 03/14/2024 and 03/13/2024. FINDINGS: LUNGS AND PLEURAL SPACES: Extensive fibrotic changes are again noted throughout the right lung, with mediastinal shift to the right and elevation of the right hemidiaphragm due to right-sided volume loss . Right apical pleural thickening and right perihilar scarring are unchanged. There is stable pleural-parenchymal scarring along the elevated right hemidiaphragm. Within the right mid to lower lung, there is slightly greater density laterally than on the prior study, overlying the posterior lateral left eighth rib, possibly due to a small focus of pneumonia. On the left, there is stable mild apical pleural thickening with mild fibrotic changes in the mid to lower lung. No pleural effusion or pneumothorax is noted. There is stable right apical pleural thickening HEART: Unremarkable. Cardiac silhouette not enlarged. MEDIASTINUM: Unchanged. Stable mediastinal shift to the right due to right-sided volume loss. Thoracic aorta is not elongated. BONES/JOINTS: Degenerative disc space narrowing with endplate sclerosis and marginal osteophytes in the mid lumbar region. No acute fracture. SOFT TISSUES: Unremarkable. RAD/Chest 1 View (Portable) IMPRESSION: Small focus of developing ill-defined density within the right mid to lower lung laterally, possibly due to developing pneumonia and continued follow-up is suggested. No other significant interval change. Chronic bilateral fibrotic changes, remaining more severe on the right. Electronically Signed: Americo Del Castillo MD at 5:51 EDT ,
--- NOTE | 2024-06-03 04:40 | EDS_ITS ---
HPI History of Present Illness Chief Complaint: Weakness Detail of Chief Complaint: Generalized weakness and dizziness Informant: patient Narrative Narrative: Patient presents the emergency department complaint of generalized weakness over the last couple days. Complains of dizziness where she had an episode yesterday and then another episode today when she got up to use restroom. Patient describes little bit of a spinning sensation. She currently does not feel dizzy. She denies headache. She denies fall or head injury. She had recent admission for pneumonia and hyponatremia about a month and a half ago. Patient denies any blood in her stool or black tarry stool. She denies urinary symptoms. She denies fevers or chills. She has a chronic cough due to history of pulmonary fibrosis. She does not wear home O2. [facility] Medical History Hypothyroidism Pulmonary fibrosis Home Medications ?Medication ?Instructions ?Recorded ?Last Taken ?Type levothyroxine 88 mcg capsule 88 mcg PO DAILY 05/23/23 Unknown History doxycycline hyclate 100 mg tablet 100 mg PO BID #10 tabs 03/16/24 Unknown Rx losartan 50 mg tablet 50 mg PO DAILY #30 tabs 03/16/24 Unknown Rx metoprolol tartrate 25 mg tablet 25 mg PO BID #60 tabs 03/16/24 Unknown Rx CaLCUIM 06/03/24 Unknown History levofloxacin 750 mg tablet 750 mg PO DAILY #4 tabs 06/03/24 Unknown Rx ondansetron 4 mg disintegrating 4 mg PO Q8H PRN PRN Nausea #10 tabs 06/03/24 Unknown Rx tablet Allergy/AdvReac Type Severity Reaction Status Date / Time Sulfa (Sulfonamide Allergy PT UNSURE Verified 06/03/24 04:23 Antibiotics) OF REACTION hydrochlorothiazide AdvReac Unknown Other Verified 06/03/24 04:23 Family History Sister Asthma Social History Smoking Status: Never smoker ROS ROS ED Review of Systems ROS Unobtainable: other Constitutional Constitutional ED: Reports lethargy; Denies chills, fever(s), sweats or weight loss Eyes Eyes: Denies blurry vision, change in vision or diplopia ENT ENT ED: Denies rhinorrhea or sore throat Cardiovascular Cardiovascular: Denies chest pain, orthopnea or racing heartbeat Respiratory/Chest Respiratory/Chest: Denies cough, dyspnea, dyspnea on exertion, orthopnea or sputum Gastrointestinal Gastrointestinal: Denies abdominal pain, diarrhea, nausea or vomiting Genitourinary Genitourinary ED: Denies dysuria, hematuria or urinary frequency Musculoskeletal Musculoskeletal: Denies arthralgias, back pain, myalgias or neck pain Integumentary Denies abscess, Abrasions or rash Neurologic Neurologic: Reports weakness and other Details: Dizziness ; Denies headache(s) Psychiatric Psychiatric: Denies anxiety, depression or suicidal thoughts Endocrine Endocrinology: Denies polydipsia, polyphagia or polyuria Hematologic/Lymphatic Hematologic/Lymphatic: Denies easy bleeding, easy bruising or lymphadenopathy Allergic/Immunologic Allergic/Immunologic ED: Denies mouth swelling, tongue swelling or urticaria EXAM Physical Exam Const Vital Signs: 06/03/24 04:22 06/03/24 04:22 06/03/24 04:50 Temperature 97.1 F L Temperature Source Temporal Pulse Rate 87 Pulse Rate [Lying] 80 Pulse Rate [Sitting (for 1 minute prior to obtaining)] 84 Respiratory Rate 16 Respiratory Effort Normal Non-Labored Respiratory Pattern Normal Blood Pressure 176/94 H Blood Pressure [Lying] 179/83 H Blood Pressure [Sitting (for 1 minute prior to obtaining)] 153/104 H Blood Pressure Mean 121 Blood Pressure Mean [Lying] 115 Blood Pressure Mean [Sitting (for 1 minute prior to obtaining)] 120 Pulse Ox 92 Oxygen Delivery Method Room Air 06/03/24 06:22 Temperature 97.8 F Temperature Source Oral Pulse Rate 78 Pulse Rate [Lying] Pulse Rate [Sitting (for 1 minute prior to obtaining)] Respiratory Rate 16 Respiratory Effort Respiratory Pattern Blood Pressure 169/80 H Blood Pressure [Lying] Blood Pressure [Sitting (for 1 minute prior to obtaining)] Blood Pressure Mean 109 Blood Pressure Mean [Lying] Blood Pressure Mean [Sitting (for 1 minute prior to obtaining)] Pulse Ox 97 Oxygen Delivery Method Room Air Positive well nourished and well developed General Appearance ED: well developed and NAD HEENT Reports TM's clear and moist mucous membranes normocephalic and atraumatic; Negative for trauma or tenderness Tympanic Membrane ED: Yes TM's clear Eyes PERRL and EOMs intact bilaterally General Eye ED: Negative for pale conjunctiva or scleral icterus Neck no lymphadenopathy, supple and no JVD General: Negative for tenderness Chest Wall inspection of chest normal and palpation of chest normal Chest: Negative for tenderness Resp normal respiratory effort and clear to auscultation bilaterally Effort and Inspection: Negative for respiratory distress or pain with movement Auscultation: Negative for rhonchi, wheezes or diminished lung sounds Cardio regular rate, regular rhythm, S1 normal heart sound, S2 normal heart sound and no murmurs Peripheral Pulses: pulses 2+ throughout GI normal to inspection, nondistended, normoactive bowel sounds, soft to palpation, non-tender, non-distended and no masses Back/Spine no CVA tenderness and no thoracic nor lumbar tenderness Extremity normal to inspection General Extremety ED: Negative for edema General Extremity: Negative for edema Neuro oriented x3, CN's II-XII intact bilaterally, no sensory deficits noted and gait normal Neuro Narrative: NIH stroke scale is a 0. Finger-nose and heel randhawa testing within normal limits, negative Romberg, negative for drift. Hallpike maneuver performed was negative for nystagmus and I could not reproduce any dizziness Sensorium / Orientation: awake, alert, oriented to person, oriented to place and oriented to time Motor Exam: strength 5/5 throughout and strength abnormal Psych mental status grossly normal Skin no rashes or lesions noted and no wounds MDM MDM MDM Narrative Medical decision making narrative: Patient presents with vague complaints of generalized weakness and dizziness that is now resolved. Patient has not been feeling well for a day or 2 just not as much energy. She was admitted recently for hyponatremia. Patient also has had some nausea and vomited once yesterday and once today. She denies abdominal pain. Denies chest pain. She has not had any falls or head injuries. IV line established. EKG obtained on arrival shows sinus rhythm with ventricular rate of 74 bpm with no acute ST segment changes. CBC with differential shows a white count of 8.5 with hemoglobin 12.9 platelet count of 398. Chemistries unremarkable. Troponin was normal at 4. Urinalysis unremarkable. CT scan of the brain without contrast was unremarkable. Patient had orthostatic vital signs ordered and her blood pressure actually increased with sitting up but she had a hard time standing because she felt weak and fell like she needed to sit back down. At this point etiology of your weakness unclear. Offered them admission if she felt she was too weak to go home but she does not want to be admitted and wants to go home. On chest x-ray she does have history of pulmonary fibrosis it was noted in the right lower lobe may be developing a new infiltrate. Patient does have pulmonary fibrosis and a chronic cough but has not had fever and she is got a normal white count. I will go ahead and start her on Levaquin for 5 days. Also will send her home with a prescription for Zofran. She is advised to return if increased weakness, increasing shortness of breath, or condition worsening way Lab Data Attestation: I reviewed the patient's lab results. Labs: Laboratory Results - last 24 hr 06/03/24 06/03/24 04:35 05:23 WBC 8.5 RBC 4.96 Hgb 12.9 Hct 39.9 MCV 80.4 L MCH 26.0 L MCHC 32.3 RDW Std Deviation 40.0 RDW Coeff of [place] 13.7 Plt Count 398 MPV 9.2 Immature Gran % (Auto) 0.500 Neut % (Auto) 58.1 Lymph % (Auto) 26.9 [place] % (Auto) 11.5 H Eos % (Auto) 1.9 Baso % (Auto) 1.1 H Absolute Neuts (auto) 5.0 Absolute Lymphs (auto) 2.29 Nucleated RBC % 0 Sodium 129 L Potassium 3.8 Chloride 96 L Carbon Dioxide 28.0 Anion Gap 5 BUN 17 Creatinine 0.72 Estim Creat Clear Calc 48.13 Est GFR (MDRD) Af Amer 100 Est GFR (MDRD) Non-Af 82 BUN/Creatinine Ratio 23.8 H Glucose 133 H Calcium 9.7 Troponin I High Sens 4 Urine Color Yellow Urine Clarity Clear Urine pH 8.0 Ur Specific [place] 1.010 Urine Protein 30 H Urine Glucose (UA) Normal Urine Ketones Negative Urine Occult Blood Negative Urine Nitrite Negative Urine Bilirubin Negative Urine Urobilinogen Normal Ur Leukocyte Esterase Negative Urine RBC 0 SEEN Urine WBC 0 SEEN Ur Squamous Epith Cells 0 SEEN Urine Bacteria 0 SEEN Urine Mucus 0 SEEN Radiography Diagnostic Testing: Clinical Impression(s) from Imaging Studies Chest X-Ray 06/03/24 04:39 IMPRESSION: Small focus of developing ill-defined density within the right mid to lower lung laterally, possibly due to developing pneumonia and continued follow-up is suggested. No other significant interval change. Chronic bilateral fibrotic changes, remaining more severe on the right. Electronically Signed: Americo Del Castillo MD at 5:51 EDT , Brain CT 06/03/24 05:30 IMPRESSION: 1. Atrophy with chronic small vessel ischemic changes. 2. No acute intracranial abnormality. Electronically Signed: Americo Del Castillo MD at 6:43 EDT , 1 view chest x-ray obtained interpreted by myself as chronic changes from pulmonary fibrosis. Radiology felt there was a small focus of developing ill- defined density within the right mid to lower lung laterally possibly due to developing pneumonia. EKG Initial EKG: Attestation: I personally reviewed and interpreted this EKG as follows: Comments: Sinus rhythm with ventricular rate of 74 bpm with no acute ST segment changes Discharge Plan Triage Chief Complaint: Weakness ED Provider: Milly Green Dx/Rx/DC Orders Clinical Impression: Weakness, Dizziness, Pneumonia, Nausea & vomiting, Fibrosis of lung Instructions: ED Dizziness, Uncertain Cause, ED Pneumonia (Adult), ED Vomiting (Adult), ED Weakness (Uncertain Cause) Prescriptions: New levofloxacin 750 mg tablet 750 mg PO DAILY Qty: 4 0RF ondansetron 4 mg tablet,disintegrating 4 mg PO Q8H PRN PRN (Reason: Nausea) Qty: 10 0RF No Action levothyroxine 88 mcg capsule 88 mcg PO DAILY losartan 50 mg Tablet 50 mg PO DAILY Qty: 30 2RF metoprolol tartrate 25 mg tablet 25 mg PO BID Qty: 60 2RF doxycycline hyclate 100 mg tablet 100 mg PO BID Qty: 10 0RF CaLCUIM Primary Care Provider: Cally Ludwig NP Referrals: Cally Ludwig NP, GANG INVESTIGATOR-C [Primary Care Provider] - 3-5 Days Print Language: Georgian Disposition Disposition: Home, Self Care
[2024-06-03] MEDS: 0.9% Normal Saline (1000mL) 1,000 ML 150 ML IV (04:49)
[2024-06-03 04:50] VITALS: BP 153/104; BP 179/83; PULSE 80; PULSE 84
[2024-06-03 04:56] LABS: Absolute Lymphocyte Count 2.29 X10^3/uL (0.83-4.51); Basophil# 0.09 X10^3/uL; Basophil% 1.1 % (0-1); Eosinophil# 0.16 X10^3/uL; Eosinophils% 1.9 % (0-5); Hematocrit 39.9 % (37-47); Hemoglobin 12.9 g/dL (12.0-15.0); Lymphocyte # 2.29 X10^3/ul (0.83-4.51); Lymphocyte % 26.9 % (19-41); Mean Corp Hgb Conc 32.3 g/dL (32-36); Mean Corpuscular Volume 80.4 fL (81-99); Mean Platelet Vol. 9.2 fl (6.2-12.0); Monocyte# 0.98 X10^3/uL; Monocyte% 11.5 % (0-10); NRBC Flagged by Analyzer 0 % (0-5); Neutrophil # 4.95 X10^3/uL (2.7-7.7); Neutrophil % 58.1 % (47-70); Platelet Count 398 K/mm3 (150-450); RBC Distribution Width CV 13.7 % (11.6-14.6); Red Blood Count 4.96 M/mm3 (4.2-5.4); White Blood Count 8.5 K/mm3 (4.4-11.0)
[2024-06-03 05:23] LABS: Anion Gap 5 (5-15); BUN 17 mg/dL (7-18); BUN/Creat Ratio 23.8 RATIO (10-20); Calcium,Total 9.7 mg/dL (8.5-10.1); Chloride 96 mmol/L (98-107); Creatinine, Serum 0.72 mg/dL (0.55-1.02); EST Glomerular Filtration Rate 82 mL/min (>60); Est Glom Filt Rate - Afr Amer 100 mL/min (>60); Estimated Creatinine Clearance 48.13 ml/min; Glucose 133 mg/dL (74-106); Potassium 3.8 mmol/L (3.5-5.1); Sodium Level 129 mmol/L (136-145); Troponin-I HS 4 pg/mL (3.0-54.0)
[2024-06-03 05:28] LABS: Bacteria 0 SEEN /hpf (None Seen); Mucous, Urine 0 SEEN /hpf (<or=2+); Red Blood Cells-Urine 0 SEEN /hpf (0-5); Squamous Epithelial Cells - UA 0 SEEN /hpf (5-10); White Blood Cells 0 SEEN /hpf (0-5)
--- NOTE | 2024-06-03 05:30 | CT_ITS ---
EXAM: CT HEAD WITHOUT INTRAVENOUS CONTRAST CLINICAL INDICATION: DIZZY TECHNIQUE: Multiple axial images were obtained of the head without intravenous contrast. This CT exam was performed using one or more of the following dose reduction techniques: automated exposure control, adjustment of the mA and/or kV according to patient size, and/or use of iterative reconstruction technique. RADIATION DOSE: Total DLP: 829.85 mGy-cm. COMPARISON: No relevant prior studies available. FINDINGS: BRAIN AND EXTRA-AXIAL SPACES: Findings of mild atrophy present with prominence of the cortical sulci, basal cisterns, sylvian fissures and ventricles. Moderate patchy chronic small vessel ischemic changes are noted within the deep white matter tracts. No intra- or extra-axial hemorrhage. No intracranial mass or mass effect. Posterior fossa structures are unremarkable. [place]-white matter differentiation is preserved. BONES/JOINTS: Unremarkable. No discrete lytic or blastic abnormalities. VASCULATURE: Atherosclerotic vascular calcification is present. The middle cerebral arteries are not hyperdense. SINUSES: Unremarkable as visualized. Clear. MASTOID AIR CELLS: Unremarkable. Clear. ORBITS: Visualized globes, extraocular muscles, optic nerves and retrobulbar fat appear unremarkable. CT/Brain/Head without Contrast IMPRESSION: 1. Atrophy with chronic small vessel ischemic changes. 2. No acute intracranial abnormality. Electronically Signed: Americo Del Castillo MD at 6:43 EDT ,
[2024-06-03 05:33] LABS: Color, Urine Yellow (Yellow); Glucose, Dipstick Normal (Normal); Ketone-Dipstick Negative (Negative); Leukocyte Esterase-Dipstick Negative /ul (Negative); Nitrite-Dipstick Negative (Negative); Occult Blood-Urine Negative /ul (Negative); Protein-Dipstick 30 mg/dl (Negative); Urine Bilirubin Dipstick Negative (Negative); Urine Clarity Clear (Clear); Urine Urobilinogen Normal (Normal)
[2024-06-03 06:22] VITALS: BP 169/80; PULSE 78; RESP 16; TEMP 36.6; O2SAT 97
[2024-06-03 06:54] VITALS: BP 175/75; PULSE 78; RESP 16; TEMP 36.6; O2SAT 96
[2024-06-03] MEDS: levoFLOXacin 750 MG Tablet PO (07:23)
== END 2024-06-03 07:37 | disposition home or self-care (01) ==
PROVIDERS: Emergency Provider Emergency Medicine; PCP Nurse Practitioner Primary Care; Visit Provider Emergency Medicine
DX: R53.1 Weakness (principal); J84.10 Pulmonary fibrosis, unspecified; J18.9 Pneumonia, unspecified organism; R42 Dizziness and giddiness; E03.9 Hypothyroidism, unspecified; Z79.890 Hormone replacement therapy; R11.2 Nausea with vomiting, unspecified
CPT/HCPCS: 70450; 71045; 80048; 81001; 84484; 85025; 87631; 93005; 96360; 96361; 99284

== ENCOUNTER 2024-06-03 19:09 | Inpatient (IN) | payer SELFPAY ==
[2024-06-03] VITALS (7 sets, daily range): BP systolic 178–211; BP diastolic 78–105; PULSE 82–97; RESP 16–19; TEMP 36.4–37.1; O2SAT 92–99; BMI 20.7
--- NOTE | 2024-06-03 20:46 | EDS_ITS ---
HPI History of Present Illness Chief Complaint: Weakness Informant: patient and family (x2) Narrative Narrative: 83-year-old female has been weak for maybe a week, progressively worsening for the last couple days, she has a chronic cough with pulmonary fibrosis, it is nonproductive, she has no fevers that she knows of but has been feeling more weak. She came to the hospital last night, she had a workup and that included an x-ray that showed probable early pneumonia, family states they opted to be treated as an outpatient follow-up, they were prescribed Levaquin and Zofran, but despite that she has vomited multiple times a day, she did not keep the antibiotic down although she has Small Amount of Fluid in between Emesis, She has Probably Vomited Maybe 5 or 6 Times Total. Denies any abdominal pain. Denies any chest pain. Denies any syncope. No lower extremity edema or orthopnea. Family is bringing her back saying that she is more weak, they are concerned she is not keeping the antibiotic down, and they are asking for admission to the hospitalist for more care. [facility] Medical History Anemia Adverse drug reaction Respiratory insufficiency Hypothyroidism Sinus tachycardia seen on cardiac sonographer Hypertension Acute hyponatremia Hypoxia Pulmonary fibrosis Right lower lobe pneumonia Pulmonary fibrosis Home Medications ?Medication ?Instructions ?Recorded ?Last Taken ?Type levothyroxine 88 mcg capsule 88 mcg PO DAILY 05/23/23 Unknown History doxycycline hyclate 100 mg tablet 100 mg PO BID #10 tabs 03/16/24 Unknown Rx losartan 50 mg tablet 50 mg PO DAILY #30 tabs 03/16/24 Unknown Rx metoprolol tartrate 25 mg tablet 25 mg PO BID #60 tabs 03/16/24 Unknown Rx levofloxacin 750 mg tablet 750 mg PO DAILY #4 tabs 06/03/24 Unknown Rx ondansetron 4 mg disintegrating 4 mg PO Q8H PRN PRN Nausea #10 tabs 06/03/24 Unknown Rx tablet Allergy/AdvReac Type Severity Reaction Status Date / Time Sulfa (Sulfonamide Allergy PT UNSURE Verified 06/03/24 19:12 Antibiotics) OF REACTION hydrochlorothiazide AdvReac Unknown Other Verified 06/03/24 19:12 Family History Sister Asthma Social History Smoking Status: Never smoker ROS ROS ED Constitutional Constitutional ED: Reports weakness; Denies chills or fever(s) Eyes Eyes: Denies change in vision or diplopia ENT ENT ED: Denies rhinorrhea or sore throat Cardiovascular Cardiovascular: Denies chest pain, leg edema, orthopnea or palpitations Respiratory/Chest Respiratory/Chest: Reports cough and dyspnea on exertion; Denies orthopnea Gastrointestinal Gastrointestinal: Reports nausea and vomiting; Denies abdominal pain or diarrhea Genitourinary Genitourinary ED: Denies dysuria or hematuria Musculoskeletal Musculoskeletal: Denies back pain or neck pain Integumentary Denies abscess or rash Neurologic Neurologic: Denies headache(s), paresthesias or weakness Psychiatric Psychiatric: Denies anxiety or suicidal thoughts EXAM Physical Exam Const Vital Signs: 06/03/24 19:10 06/03/24 19:10 06/03/24 21:00 Temperature 98.7 F 98.7 F 97.5 F L Temperature Source Temporal Temporal Temporal Pulse Rate 82 82 84 Respiratory Rate 18 18 19 H Blood Pressure 178/78 H 178/78 H 191/84 H Blood Pressure Mean 111 111 119 Pulse Ox 92 92 98 Oxygen Delivery Method Room Air Room Air Room Air 06/03/24 21:52 06/03/24 22:00 Temperature 98 F 97.5 F L Temperature Source Temporal Pulse Rate 89 87 Respiratory Rate 18 18 Blood Pressure 188/102 H 190/97 H Blood Pressure Mean 130 128 Pulse Ox 99 98 Oxygen Delivery Method Room Air Positive well nourished and well developed Constitutional Narrative: Appears weak-feeling but in no distress, and is alert General Appearance ED: well developed and NAD HEENT Reports dry mucous membranes normocephalic and atraumatic Mouth ED: Yes dry mucous membranes Mouth: dry mucous membranes Eyes PERRL and EOMs intact bilaterally Neck full ROM and supple Resp normal respiratory effort Resp Narrative: Diffusely diminished with inspiratory high-pitched rhonchi diffusely Cardio regular rate, regular rhythm and no murmurs Rate: Negative for tachycardic GI non-tender and non-distended Auscultation: normoactive bowel sounds Palpation: soft Back/Spine no CVA tenderness General Back: other FROM Extremity normal to inspection General Extremety ED: Negative for edema, pulses abnormal or tenderness General Extremity: Negative for edema or pulses abnormal Neuro oriented x3, CN's II-XII intact bilaterally and no sensory deficits noted Sensorium / Orientation: awake and alert Motor Exam: general weakness Psych Psych Narrative: Flat affect Skin no rashes or lesions noted and no wounds MDM MDM MDM Narrative Medical decision making narrative: I repeated her x-ray, 2 views on my interpretation shows what appears to be pneumonia on the right, it looks similar to her prior x-ray, looking back at her x-ray in March she had similar appearance then when she was diagnosed with pneumonia. At that time the CT was showing right lower lobe pneumonia. For this reason I held off on CT repeated her labs, her sodium is now down to 122 just compared with this morning, this may explain her severe weakness more so than the pneumonia; we ambulated her she was not hypoxemic. Started on Levaquin, gave her some Zofran while watching QT intervals, and plan is for admission discussed with hospitalist. Lab Data Attestation: I reviewed the patient's lab results. Labs: Laboratory Results - last 24 hr 06/03/24 20:52 WBC 9.4 RBC 4.71 Hgb 12.3 Hct 37.2 MCV 79.0 L MCH 26.1 L MCHC 33.1 RDW Std Deviation 39.3 RDW Coeff of [place] 13.6 Plt Count 362 MPV 8.8 Immature Gran % (Auto) 0.400 Neut % (Auto) 79.2 H Lymph % (Auto) 10.6 L [place] % (Auto) 9.1 Eos % (Auto) 0.2 Baso % (Auto) 0.5 Absolute Neuts (auto) 7.4 Absolute Lymphs (auto) 1.00 Nucleated RBC % 0 Sodium 122 L Potassium 4.1 Chloride 90 L Carbon Dioxide 25.0 Anion Gap 7 BUN 13 Creatinine 0.69 Est GFR (MDRD) Af Amer 104 Est GFR (MDRD) Non-Af 86 BUN/Creatinine Ratio 18.8 Glucose 133 H Calcium 9.3 Radiography Diagnostic Testing: Clinical Impression(s) from Imaging Studies Chest X-Ray 06/03/24 21:25 IMPRESSION: 1. Hyperinflated lungs with right greater than left predominantly peripheral pulmonary opacities. Possible loculated apical fluid on the right. Underlying pneumonia cannot be excluded. 2. Right parahilar fullness may be airspace disease or hilar mass/adenopathy similar to the prior examination. Electronically Signed: Presley LockhartadalDO nils at 21:50 EDT , Management Discussion w/another healthcare provider: Hospitalist Discharge Plan Triage Chief Complaint: Weakness ED Provider: Elkin Cole Dx/Rx/DC Orders Clinical Impression: Acute hyponatremia, Fibrosis of lung, Right lower lobe pneumonia, Vomiting, Debility Prescriptions: No Action levothyroxine 88 mcg capsule 88 mcg PO DAILY losartan 50 mg Tablet 50 mg PO DAILY Qty: 30 2RF metoprolol tartrate 25 mg tablet 25 mg PO BID Qty: 60 2RF doxycycline hyclate 100 mg tablet 100 mg PO BID Qty: 10 0RF levofloxacin 750 mg tablet 750 mg PO DAILY Qty: 4 0RF ondansetron 4 mg tablet,disintegrating 4 mg PO Q8H PRN PRN (Reason: Nausea) Qty: 10 0RF Primary Care Provider: Cally Ludwig NP Referrals: Cally Ludwig NP, ACCOUNTING CLERKS SUPERVISOR-C [Primary Care Provider] - Print Language: [place] Disposition Disposition: Acute Care Hospital [facility]
[2024-06-03] MEDS: 0.9% Normal Saline (1000mL) 1,000 ML 150 ML IV (20:58)
[2024-06-03] MEDS: Ondansetron 4 MG/2 ML Vial IV (20:58)
[2024-06-03] MEDS: levoFLOXacin IV 750 MG/150 ML BAG 100 MG IV (20:58)
[2024-06-03 21:01] LABS: Absolute Neutrophil Count 7.4 X10^3/uL (2.0-7.7); Basophil# 0.05 X10^3/uL; Basophil% 0.5 % (0-1); Eosinophil# 0.02 X10^3/uL; Eosinophils% 0.2 % (0-5); Hematocrit 37.2 % (37-47); Hemoglobin 12.3 g/dL (12.0-15.0); Lymphocyte % 10.6 % (19-41); Mean Corp Hgb Conc 33.1 g/dL (32-36); Mean Corpuscular Hgb 26.1 pg (27.0-32.0); Mean Platelet Vol. 8.8 fl (6.2-12.0); Monocyte# 0.85 X10^3/uL; Monocyte% 9.1 % (0-10); NRBC Flagged by Analyzer 0 % (0-5); Neutrophil # 7.43 X10^3/uL (2.7-7.7); Neutrophil % 79.2 % (47-70); Platelet Count 362 K/mm3 (150-450); RBC Distribution Width CV 13.6 % (11.6-14.6); RBC Distribution Width SD 39.3 fl (35.1-43.9); Red Blood Count 4.71 M/mm3 (4.2-5.4); White Blood Count 9.4 K/mm3 (4.4-11.0)
--- NOTE | 2024-06-03 21:25 | RAD_ITS ---
EXAM: XR CHEST, 2 VIEWS CLINICAL INDICATION: Check progression of pneumonia TECHNIQUE: Frontal and lateral views of the chest. COMPARISON: 06/03/2024 FINDINGS: LUNGS AND PLEURAL SPACES: Hyperinflated lungs with right greater than left predominantly peripheral pulmonary opacities. Possible loculated apical fluid on the right. Underlying pneumonia cannot be excluded. Right parahilar fullness may be airspace disease or hilar mass/adenopathy similar to the prior examination. No pneumothorax. HEART: No significant abnormality. Cardiac silhouette not enlarged. MEDIASTINUM: Central airways and mediastinal contour are unremarkable. BONES/JOINTS: No significant abnormality. No acute fracture. SOFT TISSUES: No significant abnormality. RAD/Chest PA and Lateral IMPRESSION: 1. Hyperinflated lungs with right greater than left predominantly peripheral pulmonary opacities. Possible loculated apical fluid on the right. Underlying pneumonia cannot be excluded. 2. Right parahilar fullness may be airspace disease or hilar mass/adenopathy similar to the prior examination. Electronically Signed: Presley Roblero DO at 21:50 EDT ,
[2024-06-03 21:29] LABS: Anion Gap 7 (5-15); BUN 13 mg/dL (7-18); BUN/Creat Ratio 18.8 RATIO (10-20); Calcium,Total 9.3 mg/dL (8.5-10.1); Chloride 90 mmol/L (98-107); Creatinine, Serum 0.69 mg/dL (0.55-1.02); EST Glomerular Filtration Rate 86 mL/min (>60); Est Glom Filt Rate - Afr Amer 104 mL/min (>60); Glucose 133 mg/dL (74-106); Potassium 4.1 mmol/L (3.5-5.1); Sodium Level 122 mmol/L (136-145)
--- NOTE | 2024-06-03 23:19 | PCM.HP.STD ---
HPI - General General Date of Admission: 06/03/24 Date of Service: 06/03/24 Chief Complaint: Weakness HPI Narrative MARILU SANDY, is a 83 F who presents with 2 days of weakness. This is an 83-year-old female with known pulmonary fibrosis, hypertension came earlier this morning with weakness. Had an x-ray that showed pulmonary fibrosis but was concerning from the ER physician for being pneumonia and patient was discharged with Levaquin and doxycycline. Patient was throwing up and was unable to take that just progressively got weak and diarrhea presented to later this evening. Patient received a dose of IV levofloxacin as well as IV fluids. Patient and her family has noticed that recently she has been slightly more shaky but not have any fever or chills. Despite the patient's known pulmonary fibrosis, she is having no shortness of breath and she is currently on room air. [facility] Medical History Anemia Adverse drug reaction Respiratory insufficiency Hypothyroidism Sinus tachycardia seen on news director Hypertension Acute hyponatremia Hypoxia Pulmonary fibrosis Right lower lobe pneumonia Pulmonary fibrosis Home Medications ?Medication ?Instructions ?Recorded ?Last Taken ?Type levothyroxine 88 mcg capsule 88 mcg PO DAILY 05/23/23 Unknown History doxycycline hyclate 100 mg tablet 100 mg PO BID #10 tabs 03/16/24 Unknown Rx losartan 50 mg tablet 50 mg PO DAILY #30 tabs 03/16/24 Unknown Rx metoprolol tartrate 25 mg tablet 25 mg PO BID #60 tabs 03/16/24 Unknown Rx levofloxacin 750 mg tablet 750 mg PO DAILY #4 tabs 06/03/24 Unknown Rx ondansetron 4 mg disintegrating 4 mg PO Q8H PRN PRN Nausea #10 tabs 06/03/24 Unknown Rx tablet Allergy/AdvReac Type Severity Reaction Status Date / Time Sulfa (Sulfonamide Allergy PT UNSURE Verified 06/03/24 19:12 Antibiotics) OF REACTION hydrochlorothiazide AdvReac Unknown Other Verified 06/03/24 19:12 Family History Sister Asthma Social History Smoking Status: Never smoker ROS ROS Narrative Chronic cough. Recently she and her family have acquired an air conditioner which is seem to have helped. All review of systems were negative except as mentioned above in the history of present illness and the other review of systems. Vital Signs Vital Signs Vital Signs: 06/03/24 19:10 06/03/24 19:10 06/03/24 21:00 Temperature 37.1 C 37.1 C 36.4 C L Temperature Source Temporal Temporal Temporal Pulse Rate 82 82 84 Respiratory Rate 18 18 19 H Blood Pressure 178/78 H 178/78 H 191/84 H Blood Pressure Mean 111 111 119 Pulse Ox 92 92 98 Oxygen Delivery Method Room Air Room Air Room Air 06/03/24 21:52 06/03/24 22:00 06/03/24 23:00 Temperature 36.6 C 36.4 C L Temperature Source Temporal Pulse Rate 89 87 95 Respiratory Rate 18 18 16 Blood Pressure 188/102 H 190/97 H 185/105 H Blood Pressure Mean 130 128 131 Pulse Ox 99 98 93 Oxygen Delivery Method Room Air Physical Exam Const alert and no apparent distress Constitutional Narrative: Flat affect. No respiratory distress. No conversational dyspnea. General Appearance: cooperative HEENT normocephalic and head/scalp atraumatic Eyes Eyes Narrative: No icterus. Glasses. Resp normal respiratory effort and no retractions Resp Narrative: Faint bibasilar crackles. Cardio regular rate, regular rhythm and S1 normal heart sound GI normal to inspection, nondistended, normoactive bowel sounds, soft to palpation, non-tender and non-distended Extremity normal to inspection, full ROM and no clubbing, cyanosis or edema Neuro moves all extremities Sensorium / Orientation: awake and alert Psych Psych Narrative: Flat affect Results Lab / Micro Data Attestation: I reviewed the patient's lab results. 06/03/24 20:52 06/03/24 20:52 Labs: Laboratory Results - last 24 hr 06/03/24 20:52: WBC 9.4, RBC 4.71, Hgb 12.3, Hct 37.2, MCV 79.0 L, MCH 26.1 L, MCHC 33.1, RDW Std Deviation 39.3, RDW Coeff of [place] 13.6, Plt Count 362, MPV 8.8, Immature Gran % (Auto) 0.400, Neut % (Auto) 79.2 H, Lymph % (Auto) 10.6 L, [place] % (Auto) 9.1, Eos % (Auto) 0.2, Baso % (Auto) 0.5, Absolute Neuts (auto) 7.4, Absolute Lymphs (auto) 1.00, Nucleated RBC % 0, Sodium 122 L, Potassium 4.1, Chloride 90 L, Carbon Dioxide 25.0, Anion Gap 7, BUN 13, Creatinine 0.69, Est GFR (MDRD) Af Amer 104, Est GFR (MDRD) Non-Af 86, BUN/Creatinine Ratio 18.8, Glucose 133 H, Calcium 9.3 Imaging Radiology Impression Chest X-Ray 06/03/24 21:25 IMPRESSION: 1. Hyperinflated lungs with right greater than left predominantly peripheral pulmonary opacities. Possible loculated apical fluid on the right. Underlying pneumonia cannot be excluded. 2. Right parahilar fullness may be airspace disease or hilar mass/adenopathy similar to the prior examination. Electronically Signed: Presley Roblero DO at 21:50 EDT , Assessment & Plan Assessment/Plan (1) Hyponatremia: PLAN: Patient had previously been on HCTZ due to her hyponatremia that was discontinued. Patient has not been taking that since. 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 Plan: I will continue with IV fluids for now. Check SIADH labs with urine sodium, urine osmolality and serum osmolality. Check TSH and random cortisol. Follow-up on BMP in the morning. Discussed with the family at length about if she does have SIADH that she would need to be on fluid restricted diet and the possibility of salt tablets. (2) Debility: PLAN: Patient presented earlier today and was weak but is weaker now. Underlying lack of oral intake and just feeling unwell. Case management to assist on disposition. PT OT evaluate and treat. (3) Abnormal CXR: PLAN: He was concerning by the emergency room physicians that the patient has pneumonia and patient did receive antibiotics earlier today. She also received her levofloxacin in the emergency room this evening. Looking at the x-rays, I see just chronic changes necessarily changed from previous. She is not having a fever nor any white count. It is unclear if she does have an underlying infiltrative process. Her COVID, influenza and RSV were negative. Discussed CAT scan with them and says she has had many CAT scans over her life due to her pulmonary fibrosis and did discuss the risk of visional radiation exposure. They would like to evaluate to see if she does have an underlying pneumonia that may be contributing to her symptoms. In the meantime, but hold off on any additional antibiotics which she would not be due until the evening on the second anyway. (4) Hypertensive urgency: PLAN: Patient has baseline hypertension on losartan and metoprolol and previously had been on HCTZ. Has not been taking her medications because of the nausea and vomiting. Will add as needed hydralazine in addition to her losartan and metoprolol titrate. PLAN: Plan Hypothyroidism: Continue levothyroxine VTE prophylaxis: Low risk given current observation status Advance care planning. Spent additional 16 minutes where I addressed with patient and her family. Patient initially was hesitant to have any kind of CPR but when she was speaking with her family she was unsure. I did discuss with them what is entailed in regards to CPR including chest compressions medications and shock. I informed them that many times with people survive cardiac arrest or many times off and on a ventilator. Told her that I would leave her at full code. But strongly encouraged that she and her family discuss further. Charges/Coding Visit Charges Inpatient E&M: 46011 Init Hosp L3 Procedures Hospitalists Procedures: 65237 Advncd Care Plan 30 Min
[2024-06-04] VITALS (9 sets, daily range): BP systolic 157–211; BP diastolic 72–104; PULSE 78–105; RESP 16–18; TEMP 36.1–37.1; O2SAT 95–97
[2024-06-04] MEDS: hydrALAZINE 20 MG/ML Vial 10 MG IV ×2 (00:09→15:33)
[2024-06-04] MEDS: proCHLORPERazine 10 MG/2 ML Vial 5 MG IV (00:09)
[2024-06-04] MEDS: 0.9% Saline Lock 10 ML Syringe IV ×3 (00:10→20:44)
[2024-06-04 00:12] LABS: Urine Sodium 147 mmol/L (Not Establ.)
[2024-06-04 00:46] LABS: Osmolality, Urine 501 mOsm/KG
[2024-06-04] MEDS: 0.9% Normal Saline (1000mL) 1,000 ML 150 ML IV (06:23)
[2024-06-04 07:14] LABS: Osmolality, Serum 251 mOsm/KG (280-301)
[2024-06-04 07:33] LABS: Anion Gap 11 (5-15); BUN 9 mg/dL (7-18); BUN/Creat Ratio 17.1 RATIO (10-20); Calcium,Total 9.3 mg/dL (8.5-10.1); Chloride 85 mmol/L (98-107); Creatinine, Serum 0.53 mg/dL (0.55-1.02); EST Glomerular Filtration Rate 117 mL/min (>60); Est Glom Filt Rate - Afr Amer 142 mL/min (>60); Estimated Creatinine Clearance 48.86 ml/min; Glucose 134 mg/dL (74-106); Magnesium 1.6 mg/dL (1.6-2.6); Potassium 3.5 mmol/L (3.5-5.1); Sodium Level 118 mmol/L (136-145)
--- NOTE | 2024-06-04 07:44 | NUR.TO.PHY ---
Text to Dr. Clarke. Sodium this am 118. Dr aware.
[2024-06-04] MEDS: Losartan Potassium 50 MG Tablet PO (10:36)
[2024-06-04] MEDS: Metoprolol Tartrate 25 MG Tablet PO ×2 (10:36→20:37)
--- NOTE | 2024-06-04 10:50 | PN.HOSP_ITS ---
Reason for Visit Reason for Visit: Diagnoses Hypo-osmolality and hyponatremia (06/04/24) Hypertensive urgency (06/04/24) Other malaise (06/04/24) Abnormal findings on diagnostic imaging of other specified body structures (06/04/24) Subjective Subjective Patient admitted yesterday evening with worsening weakness and GI symptoms. Saw patient at bedside this morning, and son present. Patient was sitting up in bed, in no acute distress. She was very fatigued appearing. She was answering questions appropriately but with fairly soft responses. She lives at home with her and typically does most things around the house for herself without issue. She has specifically felt weaker over the past 2 to 3 days. States that her nausea with vomiting and diarrhea started about 2 days ago. She has not had any episodes of vomiting or diarrhea since last night. Denies any fevers or chills. No other acute concerns this morning. Objective Data Objective Data Vital Signs: Vital Signs Temp Pulse Resp BP Pulse Ox O2 Del Method 97.9 F 89 18 158/72 H 96 Room Air 06/04/24 07:54 06/04/24 10:36 06/04/24 07:54 06/04/24 07:54 06/04/24 07:54 06/04/24 07:54 Oxygen Delivery Method Room Air Weight: 60.2 kg Body Mass Index (BMI) 20.7 Intake & Output: Intake and Output for Last 24 Hours 06/02/24 06/03/24 06/04/24 23:59 23:59 23:59 Intake Total 150 / 150 1222.5 / 1222.5 Output Total 600 / 600 Balance 150 / -450 622.5 / 622.5 Lab / Micro Data 06/03/24 20:52 06/04/24 05:18 Labs: Laboratory Results - last 24 hr 06/03/24 05:23: Urine Osmolality 501, Ur Random Sodium 147 06/03/24 20:52: WBC 9.4, RBC 4.71, Hgb 12.3, Hct 37.2, MCV 79.0 L, MCH 26.1 L, MCHC 33.1, RDW Std Deviation 39.3, RDW Coeff of [place] 13.6, Plt Count 362, MPV 8.8, Immature Gran % (Auto) 0.400, Neut % (Auto) 79.2 H, Lymph % (Auto) 10.6 L, [place] % (Auto) 9.1, Eos % (Auto) 0.2, Baso % (Auto) 0.5, Absolute Neuts (auto) 7.4, Absolute Lymphs (auto) 1.00, Nucleated RBC % 0, Sodium 122 L, Potassium 4.1, Chloride 90 L, Carbon Dioxide 25.0, Anion Gap 7, BUN 13, Creatinine 0.69, Est GFR (MDRD) Af Amer 104, Est GFR (MDRD) Non-Af 86, BUN/Creatinine Ratio 18.8, Glucose 133 H, Calcium 9.3 06/04/24 05:18: Sodium 118 L*, Potassium 3.5, Chloride 85 L, Carbon Dioxide 22.0, Anion Gap 11, BUN 9, Creatinine 0.53 L, Estim Creat Clear Calc 48.86, Est GFR (MDRD) Af Amer 142, Est GFR (MDRD) Non-Af 117, BUN/Creatinine Ratio 17.1, G lucose 134 H, Serum Osmolality 251 L, Calcium 9.3, Magnesium 1.6, TSH 11.30 H, C ortisol 43.40 H Radiography Diagnostic Testing: Radiology Impression Chest X-Ray 06/03/24 21:25 IMPRESSION: 1. Hyperinflated lungs with right greater than left predominantly peripheral pulmonary opacities. Possible loculated apical fluid on the right. Underlying pneumonia cannot be excluded. 2. Right parahilar fullness may be airspace disease or hilar mass/adenopathy similar to the prior examination. Electronically Signed: Presley Roblero DO at 21:50 EDT , Chest CT 06/04/24 23:40 IMPRESSION: Consolidation at the posterior aspect of the right midlung is unchanged. Electronically Signed: Kamran Clark MD at 4:07 EDT , Physical Exam Const alert, oriented x3, no apparent distress and average body habitus Constitutional Narrative: Elderly female, fatigued appearing, answering questions with short appropriate responses, otherwise sitting up comfortably in bed, in no acute distress. General Appearance: cooperative and comfortable HEENT normocephalic, head/scalp atraumatic, hearing grossly normal bilaterally and nasal mucous membranes and turbinates normal HEENT Narrative: Dry mucous membranes. Eyes PERRL, EOMs intact bilaterally and conjunctivae normal Neck full ROM Chest inspection of chest normal Resp normal respiratory effort, normal air movement, no use of accessory muscles and clear to auscultation bilaterally Cardio regular rate, regular rhythm, no murmurs and peripheral pulses 2+ throughout GI normal to inspection, nondistended, normoactive bowel sounds, soft to palpation, non-tender and non-distended Back/Spine normal ROM Extremity normal to inspection, full ROM and no pedal edema Skin no rashes or lesions noted Neuro no focal motor deficits and no sensory deficits noted Speech: speech normal Psych mental status grossly normal Psych Narrative: Flat affect. Assessment & Plan Assessment/Plan (1) Hyponatremia: (2) Nausea & vomiting: (3) Debility: PLAN: Plan Patient is an 83-year-old female who presented [facility] ED on 06/03/2024 with worsening weakness and GI symptoms. 1. Acute on chronic hyponatremia ? Nephrology consulted. Sodium 129 on morning of 06/03, was given IV fluids in the ED and discharged home. Returned with worsening symptoms and had sodium of 122 at that time. Chloride had also decreased from 96 to 90. Given further IV normal saline overnight, repeat sodium 118 on morning of 06/04. Hyponatremia studies most consistent with SIADH. Undertreated hypothyroidism could be playing a small role. Unclear etiology for SIADH, could be related to possible GI illness noted below. Discontinued IV fluids and placed patient on strict 1500 mL fluid restriction. Will follow-up sodium level this afternoon and again tomorrow morning. Appreciate further nephrology recommendations. 2. Nausea/vomiting and diarrhea, improving ? Reports symptoms for about 2 days prior to admission. Symptoms improving on hospital day 2. Seems most likely to be a viral gastroenteritis. Will monitor. 3. Acute debility ? PT/OT/case management following. Patient lives at home with , has good functional status at baseline. Acute debility presumed secondary to possible GI illness and poor p.o. intake. Has borderline therapy scores, likely planning for home with home health care on discharge. 4. Hypothyroidism ? TSH 11.30 on admit. TSH notably was 0.92 on 03/15. Unclear if dose change to Synthroid was made at that time. Patient reports compliance. Will continue Synthroid 88 mcg daily for now. Recommend outpatient follow-up with PCP for dose adjustments. 5. Abnormal chest imaging, history of pulmonary fibrosis ? Chest x-ray on admit concerning for possible right sided pneumonia. Chest CT showed consolidation in posterior aspect of right midlung unchanged from previous chest CT in March. Patient notably with no pneumonia symptoms and afebrile. Suspect chronic lung changes rather than an acute pneumonia, no need for antibiotic treatment at this time. 6. Hypertension ? Hypertensive in ED likely secondary to patient being unable to keep her home medications down. Improved with restarting home Lopressor and losartan, will continue these medications. DVT prophylaxis: Lovenox CODE STATUS: Full code, verified Expected disposition: Home with home health care versus SNF, 2 to 3 days Total clinical time spent by myself addressing the patient's medical issues, reviewing all the data, and collaborating with patient's care team: 35 minutes. Charges/Coding Visit Charges Inpatient E&M: 05434 Subs Hosp L2
[2024-06-04] MEDS: Ondansetron 4 MG/2 ML Vial IV ×2 (12:31→20:44)
--- NOTE | 2024-06-04 13:41 | CON.PCM.RE_ITS ---
Assessment & Plan Assessment/Plan (1) Hyponatremia: PLAN: Plan This is a pleasant 83-year-old female with past medical history significant for hypothyroidism, hypertension, pulmonary fibrosis presented to the hospital with complaints of weakness, chest x-ray concerning for pneumonia, patient received IV fluids and IV antibiotics and patient discharged from ER to home yesterday morning, patient then presented back to the emergency room last evening with similar complaints and patient admitted for further evaluation and treatment. She received IV fluids in the ER again last evening. Patient also admitted for hyponatremia. Nephrology consulted in view of low sodium trends. Patient is alert and oriented but having difficult time recalling recent events, at bedside to give information. Hydrochlorothiazide stopped about 2 weeks ago per PCP. Patient had lab work then but unaware of sodium level. Sodium was initially 129 yesterday morning, after she presented back to the ER last evening sodium 122 and this morning sodium is 118. Possibly acute hyponatremia secondary to polydipsia. Will hold off on any further IV fluids. FR added and reviewed this with patient and . Will start sodium chloride tablets. Labs ordered for the morning. Continue off hydrochlorothiazide even at discharge, also explained this to patient and . Urine sodium was high, 147. Urine osmo 501, serum Osmo 251. TSH elevated 11.30 (on Synthroid), cortisol 43.4. Patient has preserved kidney function, serum creatinine 0.53. Baseline sodium unknown, she had hyponatremia in March 2024 with sodium trending 124 (this is zafar) to 129 at time of hospital discharge. Further orders forthcoming as hospitalization evolves, thank you for allowing us to participate in the care of Ms. Posadas. HPI Consult Data Date of Consult: 06/04/24 HPI Narrative HPI Narrative: MARILU POSADAS, is a 83 F with past medical history significant for hypertension, pulmonary fibrosis, hypothyroidism, chronic anemia who presented to the emergency room yesterday with complaints of weakness. Patient had presented to the emergency room earlier on June 03 with complaints of weakness, chest x- ray concerning for pneumonia also showed pulmonary fibrosis and patient was discharged home on Levaquin and doxycycline. Patient returned back to the ER as she had been vomiting, felt weak therefore presented back to the emergency room. Patient was given IV fluids and IV antibiotics and admitted for further evaluation and treatment. Nephrology consulted in view of hyponatremia. Patient could possibly have chronic hyponatremia as patient had lab work in March 2024 with low sodium levels ranging 124-129. Yesterday in emergency room sodium 129. Then patient presented back to the emergency room late last evening sodium 122. She was given gentle IV fluids. Sodium level this morning 118. Patient is alert and oriented but sleepy. at bedside able to give information. Per HCTZ was stopped by PCP about 2 weeks ago, they were told sodium level low but not aware of sodium value. No recent diarrhea. Not on any different diuretic. Not on any antidepressants. Patient had not been restricting her fluid intake before hospital admission. [facility] Medical History Anemia Adverse drug reaction Respiratory insufficiency Hypothyroidism Sinus tachycardia seen on library monitor Hypertension Acute hyponatremia Hypoxia Pulmonary fibrosis Right lower lobe pneumonia Pulmonary fibrosis Home Medications ?Medication ?Instructions ?Recorded ?Last Taken ?Type levothyroxine 88 mcg capsule 88 mcg PO DAILY thyroid 05/23/23 Unknown History doxycycline hyclate 100 mg tablet 100 mg PO BID atb #10 tabs 03/16/24 Unknown Rx losartan 50 mg tablet 50 mg PO DAILY bp #30 tabs 03/16/24 Unknown Rx metoprolol tartrate 25 mg tablet 25 mg PO BID heart #60 tabs 03/16/24 Unknown Rx levofloxacin 750 mg tablet 750 mg PO DAILY atb #4 tabs 06/03/24 Unknown Rx ondansetron 4 mg disintegrating 4 mg PO Q8H PRN PRN Nausea #10 tabs 06/03/24 Unknown Rx tablet Allergy/AdvReac Type Severity Reaction Status Date / Time Sulfa (Sulfonamide Allergy PT UNSURE Verified 06/03/24 19:12 Antibiotics) OF REACTION hydrochlorothiazide AdvReac Unknown Other Verified 06/03/24 19:12 Family History Sister Asthma Social History Smoking Status: Never smoker ROS ROS Narrative As in HPI and past medical history Physical Exam Narrative Alert oriented x 3, no apparent distress. Sleepy S1-S2, RRR lung sounds clear anteriorly Abdomen soft, nontender No edema Lab / Micro Data 06/03/24 20:52 06/04/24 05:18 Labs: Laboratory Results - last 24 hr 06/03/24 05:23: Urine Osmolality 501, Ur Random Sodium 147 06/03/24 20:52: WBC 9.4, RBC 4.71, Hgb 12.3, Hct 37.2, MCV 79.0 L, MCH 26.1 L, MCHC 33.1, RDW Std Deviation 39.3, RDW Coeff of [place] 13.6, Plt Count 362, MPV 8.8, Immature Gran % (Auto) 0.400, Neut % (Auto) 79.2 H, Lymph % (Auto) 10.6 L, [place] % (Auto) 9.1, Eos % (Auto) 0.2, Baso % (Auto) 0.5, Absolute Neuts (auto) 7.4, Absolute Lymphs (auto) 1.00, Nucleated RBC % 0, Sodium 122 L, Potassium 4.1, Chloride 90 L, Carbon Dioxide 25.0, Anion Gap 7, BUN 13, Creatinine 0.69, Est GFR (MDRD) Af Amer 104, Est GFR (MDRD) Non-Af 86, BUN/Creatinine Ratio 18.8, Glucose 133 H, Calcium 9.3 06/04/24 05:18: Sodium 118 L*, Potassium 3.5, Chloride 85 L, Carbon Dioxide 22.0, Anion Gap 11, BUN 9, Creatinine 0.53 L, Estim Creat Clear Calc 48.86, Est GFR (MDRD) Af Amer 142, Est GFR (MDRD) Non-Af 117, BUN/Creatinine Ratio 17.1, G lucose 134 H, Serum Osmolality 251 L, Calcium 9.3, Magnesium 1.6, TSH 11.30 H, C ortisol 43.40 H Imaging Radiology Impression Chest X-Ray 06/03/24 21:25 IMPRESSION: 1. Hyperinflated lungs with right greater than left predominantly peripheral pulmonary opacities. Possible loculated apical fluid on the right. Underlying pneumonia cannot be excluded. 2. Right parahilar fullness may be airspace disease or hilar mass/adenopathy similar to the prior examination. Electronically Signed: Presley Roblero DO at 21:50 EDT , Chest CT 06/04/24 23:40 IMPRESSION: Consolidation at the posterior aspect of the right midlung is unchanged. Electronically Signed: Kamran Clark MD at 4:07 EDT ,
--- NOTE | 2024-06-04 14:25 | CASEMGMT ---
BILL WHITE Assessment: Face to Face with pt for initial transition planning/care coordination assessment. RN CHRISTOPHER introduced self and role at [facility], pt voices understanding and consents to assessment. Pt is A&O x4 and answers all questions appropriately at this time. Pt lying in bed in no distress, little eye contact made. at bedside and patient agreeable to assessment with present. Care providers, pharmacy, and demographics verified/updated. Admitting Dx: weakness Strata Score: 2 PCP:Cally Ludwig [employer] Specialists:Denies Preferred Pharmacy:[facility]- pt states will be closing soon but still want rx sent there. Insurance: [employer] Prescription Benefit: no LNOK: Alistair Posadas, ; Santosh Posadas, son Living Arrangements: Pt lives with in a two story home with 2 steps to enter. Pt reports being I in ADL/IADL at home. States evangelical members has been bringing in food. Pt denies concerns at home. Transportation: Pt drives self and denies concerns with transportation. DME:shower chair. No AD at home but pt states they would get a FWW on their own if they need one. HHC/SNF: Denies hx of Pt states no concerns with going home at time of dc. Discussed HH options. Pt states they do not know what to do. He states they do not have any answers. Due to self pay, pt and prefer a HH list but do not want it set up at this time. They are aware that should they get home and decide they do want the HHC, they may call the PCP office to order this. Pt states family is available to assist with pt care. Pt states no further concerns/needs. CM to follow. Advised pt to ask CM if any further question/concerns/needs arise, voices understanding. Pt Goal: Home Plan: Home, provided with a list of HHC providers including quality and resource use data and consistent with the patient?s preferred geographic region, medical needs, and insurance network were provided from the [employer] Guide. George KHAN CM
[2024-06-04 14:32] LABS: Anion Gap 8 (5-15); BUN 11 mg/dL (7-18); BUN/Creat Ratio 17.5 RATIO (10-20); Calcium,Total 9.2 mg/dL (8.5-10.1); Chloride 87 mmol/L (98-107); Creatinine, Serum 0.63 mg/dL (0.55-1.02); EST Glomerular Filtration Rate 96 mL/min (>60); Est Glom Filt Rate - Afr Amer 116 mL/min (>60); Estimated Creatinine Clearance 48.86 ml/min; Glucose 126 mg/dL (74-106); Potassium 3.8 mmol/L (3.5-5.1); Sodium Level 121 mmol/L (136-145)
[2024-06-04] MEDS: Sodium Chloride 1 GM Tablet 2 GM PO ×2 (15:13→20:37)
--- NOTE | 2024-06-04 23:40 | CT_ITS ---
EXAM: CT CHEST WITH INTRAVENOUS CONTRAST CLINICAL INDICATION: COUGH. PULMONARY FIBROSIS. TECHNIQUE: Helically acquired images were obtained of the chest with intravenous contrast. CTDIvol = ( 17.67 ) mGy, DLP = ( 333.92 ) mGycm This CT exam was performed using one or more of the following dose reduction techniques: automated exposure control, adjustment of the mA and/or kV according to patient size, and/or use of iterative reconstruction technique. CONTRAST: IV 75mL Isovue-300 COMPARISON: March 13, 2024 CT chest FINDINGS: LUNGS AND PLEURAL SPACES: Consolidation at the posterior aspect of the right midlung is unchanged. Right worse than left. No mass. No pleural effusion or thickening. No pneumothorax. HEART: Unremarkable. Heart size is normal. No pericardial effusion. MEDIASTINUM: Unremarkable. No mediastinal or hilar adenopathy. Esophagus is unremarkable. No hiatal hernia. THYROID: Unremarkable. No thyroid lesions. BONES/JOINTS: Degenerative changes of the spine. No suspicious lytic or blastic abnormality. VASCULATURE: Dilated central pulmonary arteries are compatible for hypertension. No obvious central pulmonary embolism although this study was not performed with the pulmonary embolism protocol. No PE. No aortic aneurysm or dissection. CT/Chest WITH Contrast IMPRESSION: Consolidation at the posterior aspect of the right midlung is unchanged. Electronically Signed: Kamran Clark MD at 4:07 EDT ,
[2024-06-05] MEDS: Levothyroxine 88 MCG Tablet PO (04:21)
[2024-06-05] MEDS: Sodium Chloride 1 GM Tablet 2 GM PO ×3 (04:22→21:05)
[2024-06-05 04:29] VITALS: BP 159/66; PULSE 66; RESP 16; TEMP 36.6; O2SAT 96
[2024-06-05 07:38] LABS: Hematocrit 37.6 % (37-47); Hemoglobin 12.4 g/dL (12.0-15.0); Mean Corpuscular Hgb 25.9 pg (27.0-32.0); Mean Corpuscular Volume 78.7 fL (81-99); Mean Platelet Vol. 8.8 fl (6.2-12.0); Platelet Count 380 K/mm3 (150-450); RBC Distribution Width CV 13.8 % (11.6-14.6); RBC Distribution Width SD 39.3 fl (35.1-43.9); Red Blood Count 4.78 M/mm3 (4.2-5.4); White Blood Count 8.7 K/mm3 (4.4-11.0)
[2024-06-05 08:21] LABS: Anion Gap 4 (5-15); BUN 16 mg/dL (7-18); BUN/Creat Ratio 21.5 RATIO (10-20); Calcium,Total 9.3 mg/dL (8.5-10.1); Chloride 92 mmol/L (98-107); Creatinine, Serum 0.74 mg/dL (0.55-1.02); EST Glomerular Filtration Rate 79 mL/min (>60); Est Glom Filt Rate - Afr Amer 95 mL/min (>60); Estimated Creatinine Clearance 48.86 ml/min; Glucose 100 mg/dL (74-106); Potassium 4.5 mmol/L (3.5-5.1); Sodium Level 124 mmol/L (136-145)
[2024-06-05 08:27] VITALS: BP 169/71; PULSE 71; RESP 16; TEMP 36.6; O2SAT 95
[2024-06-05 08:37] VITALS: PULSE 71
[2024-06-05] MEDS: Metoprolol Tartrate 25 MG Tablet PO ×2 (08:37→21:04)
[2024-06-05] MEDS: Losartan Potassium 50 MG Tablet PO (08:38)
[2024-06-05] MEDS: amLODIPine 5 MG Tablet PO (08:40)
--- NOTE | 2024-06-05 10:28 | PCM.PN.HOSP ---
Reason for Visit Reason for Visit: Diagnoses Hypo-osmolality and hyponatremia (06/04/24) Hypertensive urgency (06/04/24) Nausea with vomiting, unspecified (06/04/24) Other malaise (06/04/24) Abnormal findings on diagnostic imaging of other specified body structures (06/04/24) Subjective Subjective Saw patient at bedside this morning, several family members present. Patient remains fatigued appearing, similar to yesterday. She otherwise was sitting up comfortably in bed, conversing normally, in no acute distress. Patient states she feels about the same as yesterday. She has had some phlegm in her throat and said she had some dry heaving this morning due to that, but she has had no significant nausea or vomiting episodes since admission. She continues to have decreased appetite. She has not had any diarrhea. Denies any fevers or chills. She continues to feel weak, had not worked with physical therapy yet today. No other new concerns today. Objective Data Objective Data Vital Signs: Vital Signs Temp Pulse Resp BP Pulse Ox O2 Del Method 97.9 F 71 16 169/71 H 95 Room Air 06/05/24 08:27 06/05/24 08:37 06/05/24 08:27 06/05/24 08:27 06/05/24 08:27 06/05/24 08:27 Oxygen Delivery Method Room Air Weight: 60.2 kg Body Mass Index (BMI) 20.7 Intake & Output: Intake and Output for Last 24 Hours 06/03/24 06/04/24 06/05/24 23:59 23:59 23:59 Intake Total 150 / 150 1462.5 / 1462.5 100 / 100 Output Total 850 / 850 400 / 400 Balance 150 / -450 612.5 / 612.5 -300 / -300 Lab / Micro Data 06/05/24 07:25 06/05/24 07:25 Labs: Laboratory Results - last 24 hr 06/04/24 14:11: Sodium 121 L, Potassium 3.8, Chloride 87 L, Carbon Dioxide 26.0, Anion Gap 8, BUN 11, Creatinine 0.63, Estim Creat Clear Calc 48.86, Est GFR (MDRD) Af Amer 116, Est GFR (MDRD) Non-Af 96, BUN/Creatinine Ratio 17.5, Glucose 126 H, Calcium 9.2 06/05/24 07:25: WBC 8.7, RBC 4.78, Hgb 12.4, Hct 37.6, MCV 78.7 L, MCH 25.9 L, MCHC 33.0, RDW Std Deviation 39.3, RDW Coeff of [place] 13.8, Plt Count 380, MPV 8.8, Sodium 124 L, Potassium 4.5, Chloride 92 L, Carbon Dioxide 28.0, Anion Gap 4 L, BUN 16, Creatinine 0.74, Estim Creat Clear Calc 48.86, Est GFR (MDRD) Af Amer 95, Est GFR (MDRD) Non-Af 79, BUN/Creatinine Ratio 21.5 H, Glucose 100, Calcium 9.3 Physical Exam Const alert, oriented x3, no apparent distress and average body habitus Constitutional Narrative: Elderly female, fatigued appearing, answering questions with short appropriate responses, otherwise sitting up comfortably in bed, in no acute distress. Stable. General Appearance: cooperative and comfortable HEENT normocephalic, head/scalp atraumatic, hearing grossly normal bilaterally and nasal mucous membranes and turbinates normal Eyes PERRL, EOMs intact bilaterally and conjunctivae normal Neck full ROM Chest inspection of chest normal Resp normal respiratory effort, normal air movement, no use of accessory muscles and clear to auscultation bilaterally Cardio regular rate, regular rhythm, no murmurs and peripheral pulses 2+ throughout GI normal to inspection, nondistended, normoactive bowel sounds, soft to palpation, non-tender and non-distended Back/Spine normal ROM Extremity normal to inspection, full ROM and no pedal edema Skin no rashes or lesions noted Neuro no focal motor deficits and no sensory deficits noted Speech: speech normal Psych mental status grossly normal Psych Narrative: Flat affect. Assessment & Plan Assessment/Plan (1) Hyponatremia: (2) Nausea & vomiting: (3) Debility: PLAN: Plan Patient is an 83-year-old female who presented [facility] ED on 06/03/2024 with worsening weakness and GI symptoms. 1. Acute on chronic hyponatremia, improving ? Nephrology following. Sodium 129 on morning of 06/03, was given IV fluids in the ED and discharged home. Returned with worsening symptoms and had sodium of 122 at that time. Chloride had also decreased from 96 to 90. Given further IV normal saline overnight, repeat sodium 118 on morning of 06/04. 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 Undertreated hypothyroidism could be playing a small role. Notably was on hydrochlorothiazide previously but this was discontinued by PCP about 2 weeks prior to admission. Per nephrology recommendations, placed on strict 1500 mL fluid restriction and started on salt tabs 2 g 3 times daily on 06/04. Sodium improving, most recent sodium 124 on 06/05. Continue current treatment and monitor sodium level every 12 hours. 2. Nausea/vomiting, improving ? Reports symptoms for about 2 days prior to admission. Symptoms improving. Seems most likely to be a viral gastroenteritis. Will monitor. 3. Acute debility ? PT/OT/case management following. Patient lives at home with , has good functional status at baseline. Acute debility presumed secondary to possible GI illness and poor p.o. intake. Has borderline therapy scores, likely planning for home with home health care on discharge. 4. Hypothyroidism ? TSH 11.30 on admit. TSH notably was 0.92 on 03/15. Unclear if dose change to Synthroid was made at that time. Patient reports compliance. Will continue Synthroid 88 mcg daily for now. Recommend outpatient follow-up with PCP for dose adjustments. 5. Abnormal chest imaging, history of pulmonary fibrosis ? Chest x-ray on admit concerning for possible right sided pneumonia. Chest CT showed consolidation in posterior aspect of right midlung unchanged from previous chest CT in March. Patient notably with no pneumonia symptoms and afebrile. Suspect chronic lung changes rather than an acute pneumonia, no need for antibiotic treatment at this time. 6. Hypertension ? Home medications of Lopressor and losartan. Previously was on hydrochlorothiazide but this was discontinued about 2 weeks prior to admission due to hyponatremia as noted above. Was hypertensive on admission, thought secondary to being unable to keep her home medications down. However, she remained fairly hypertensive despite restarting Lopressor and losartan. Amlodipine 5 mg daily added on 06/05. Will continue to monitor closely. DVT prophylaxis: Lovenox CODE STATUS: Full code, verified Expected disposition: Home with home health care, 2 to 3 days Total clinical time spent by myself addressing the patient's medical issues, reviewing all the data, and collaborating with patient's care team: 35 minutes. Charges/Coding Visit Charges Inpatient E&M: 84585 Subs Hosp L2
--- NOTE | 2024-06-05 12:55 | PCM.PN.REN ---
Subjective Subjective Follow-up on hyponatremia Patient eating lunch, no acute events is at bedside No complaints Objective Data Objective Data Vital Signs: Vital Signs Temp Pulse Resp BP Pulse Ox O2 Del Method 97.9 F 71 16 169/71 H 95 Room Air 06/05/24 08:27 06/05/24 08:37 06/05/24 08:27 06/05/24 08:27 06/05/24 08:27 06/05/24 08:27 Oxygen Delivery Method Room Air Weight: 60.2 kg Body Mass Index (BMI) 20.7 Intake & Output: Intake and Output for Last 24 Hours 06/03/24 06/04/24 06/05/24 23:59 23:59 23:59 Intake Total 150 / 150 1462.5 / 1462.5 100 / 100 Output Total 850 / 850 400 / 400 Balance 150 / -450 612.5 / 612.5 -300 / -300 Lab / Micro Data 06/05/24 07:25 06/05/24 07:25 Labs: Laboratory Results - last 24 hr 06/04/24 14:11: Sodium 121 L, Potassium 3.8, Chloride 87 L, Carbon Dioxide 26.0, Anion Gap 8, BUN 11, Creatinine 0.63, Estim Creat Clear Calc 48.86, Est GFR (MDRD) Af Amer 116, Est GFR (MDRD) Non-Af 96, BUN/Creatinine Ratio 17.5, Glucose 126 H, Calcium 9.2 06/05/24 07:25: WBC 8.7, RBC 4.78, Hgb 12.4, Hct 37.6, MCV 78.7 L, MCH 25.9 L, MCHC 33.0, RDW Std Deviation 39.3, RDW Coeff of [place] 13.8, Plt Count 380, MPV 8.8, Sodium 124 L, Potassium 4.5, Chloride 92 L, Carbon Dioxide 28.0, Anion Gap 4 L, BUN 16, Creatinine 0.74, Estim Creat Clear Calc 48.86, Est GFR (MDRD) Af Amer 95, Est GFR (MDRD) Non-Af 79, BUN/Creatinine Ratio 21.5 H, Glucose 100, Calcium 9.3 Physical Exam Narrative Awake responsive eating comfortably Not on oxygen No peripheral edema Assessment & Plan Assessment/Plan (1) Hyponatremia: PLAN: Plan Acute on chronic in nature -Urinary studies consistent with increased ADH activity -Sodium is at 124mmol/L which is improved from 118 mmol/L -Continue with free water restriction 1.5 L/day. Okay with salt tablets for now -Asymptomatic hence no need for hypertonic saline -Will repeat sodium every 12 hours Discussed with patient and her at bedside Thank you please call [phone] with any concerns
[2024-06-05 13:38] VITALS: BP 133/59; PULSE 68; RESP 16; TEMP 36.6; O2SAT 98
--- NOTE | 2024-06-05 14:22 | CASEMGMT ---
Social Work SW spoke w/daughter Cintia and son in law in room in regard to discharge plan. They confirm plan will be for pt to return home, they are open to HHC. However it would be pt's to plan this, they are not the decision makers. SW let them know the CM can follow up w/the family on Friday for possible home health care referral. KENNETH Henry
[2024-06-05 18:33] LABS: Sodium Level 124 mmol/L (136-145)
[2024-06-05 21:00] VITALS: BP 141/64; PULSE 70; RESP 16; TEMP 36.1; O2SAT 98
[2024-06-05 21:04] VITALS: BP 141/64; PULSE 70
[2024-06-06 03:45] VITALS: BP 147/64; PULSE 68; RESP 16; TEMP 36.6; O2SAT 98
[2024-06-06] MEDS: Sodium Chloride 1 GM Tablet 2 GM PO ×3 (06:08→20:43)
[2024-06-06] MEDS: Levothyroxine 88 MCG Tablet PO (06:08)
[2024-06-06 07:13] LABS: Anion Gap 6 (5-15); BUN 16 mg/dL (7-18); BUN/Creat Ratio 23.3 RATIO (10-20); Chloride 93 mmol/L (98-107); Creatinine, Serum 0.69 mg/dL (0.55-1.02); EST Glomerular Filtration Rate 86 mL/min (>60); Est Glom Filt Rate - Afr Amer 104 mL/min (>60); Estimated Creatinine Clearance 48.86 ml/min; Glucose 86 mg/dL (74-106); Potassium 3.5 mmol/L (3.5-5.1); Sodium Level 126 mmol/L (136-145)
[2024-06-06 07:40] VITALS: BP 129/56; PULSE 67; RESP 16; TEMP 36.7; O2SAT 98
[2024-06-06 09:18] VITALS: PULSE 67
[2024-06-06] MEDS: Losartan Potassium 50 MG Tablet PO (09:18)
[2024-06-06] MEDS: Metoprolol Tartrate 25 MG Tablet PO ×2 (09:18→20:43)
[2024-06-06] MEDS: amLODIPine 5 MG Tablet PO (09:19)
--- NOTE | 2024-06-06 11:45 | PN.HOSP_ITS ---
Reason for Visit Reason for Visit: Diagnoses Hypo-osmolality and hyponatremia (06/04/24) Hypertensive urgency (06/04/24) Nausea with vomiting, unspecified (06/04/24) Other malaise (06/04/24) Abnormal findings on diagnostic imaging of other specified body structures (06/04/24) Subjective Subjective No acute events overnight. Saw patient at bedside this morning, present. Patient states that she did well working with therapy yesterday. However, she felt slightly weaker this morning and had some lightheadedness/dizziness when getting up from bed to use the bathroom this morning. Did not have any fall or syncopal episode. She otherwise states that her appetite feels mildly improved today. No other new concerns today. Objective Data Objective Data Vital Signs: Vital Signs Temp Pulse Resp BP Pulse Ox O2 Del Method 98.0 F 67 16 129/56 H 98 Room Air 06/06/24 07:40 06/06/24 09:18 06/06/24 07:40 06/06/24 07:40 06/06/24 07:40 06/06/24 07:40 Oxygen Delivery Method Room Air Weight: 60.2 kg Body Mass Index (BMI) 20.7 Intake & Output: Intake and Output for Last 24 Hours 06/04/24 06/05/24 06/06/24 23:59 23:59 23:59 Intake Total 1462.5 / 1462.5 100 / 100 Output Total 850 / 850 800 / 800 200 / 200 Balance 612.5 / 612.5 -700 / -700 -200 / -200 Lab / Micro Data 06/05/24 07:25 06/06/24 06:09 Labs: Laboratory Results - last 24 hr 06/05/24 18:08: Sodium 124 L 06/06/24 06:09: Sodium 126 L, Potassium 3.5, Chloride 93 L, Carbon Dioxide 27.0, Anion Gap 6, BUN 16, Creatinine 0.69, Estim Creat Clear Calc 48.86, Est GFR (MDRD) Af Amer 104, Est GFR (MDRD) Non-Af 86, BUN/Creatinine Ratio 23.3 H, Glucose 86, Calcium 9.0 Physical Exam Const alert, oriented x3, no apparent distress and average body habitus Constitutional Narrative: Elderly female, mildly fatigued appearing, otherwise sitting up comfortably in bed, conversing normally, in no acute distress. Improving. General Appearance: cooperative and comfortable HEENT normocephalic, head/scalp atraumatic, hearing grossly normal bilaterally and nasal mucous membranes and turbinates normal Eyes PERRL, EOMs intact bilaterally and conjunctivae normal Neck full ROM Chest inspection of chest normal Resp normal respiratory effort, normal air movement, no use of accessory muscles and clear to auscultation bilaterally Cardio regular rate, regular rhythm, no murmurs and peripheral pulses 2+ throughout GI normal to inspection, nondistended, normoactive bowel sounds, soft to palpation, non-tender and non-distended Back/Spine normal ROM Extremity normal to inspection, full ROM and no pedal edema Skin no rashes or lesions noted Neuro no focal motor deficits and no sensory deficits noted Speech: speech normal Psych mental status grossly normal Psych Narrative: Flat affect. Assessment & Plan Assessment/Plan (1) Hyponatremia: (2) Nausea & vomiting: (3) Debility: PLAN: Plan Patient is an 83-year-old female who presented [facility] ED on 06/03/2024 with worsening weakness and GI symptoms. 1. Acute on chronic hyponatremia, improving ? Nephrology following. Sodium 129 on morning of 06/03, was given IV fluids in the ED and discharged home. Returned with worsening symptoms and had sodium of 122 at that time. Chloride had also decreased from 96 to 90. Given further IV normal saline overnight, repeat sodium 118 on morning of 06/04. 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 Undertreated hypothyroidism could be playing a small role. Notably was on hydrochlorothiazide previously but this was discontinued by PCP about 2 weeks prior to admission. Per nephrology recommendations, placed on strict 1500 mL fluid restriction and started on salt tabs 2 g 3 times daily on 06/04. Sodium improving, most recent sodium 126 on 06/06. Continue current treatment and monitor sodium level daily. Likely okay for discharge home in the next 1 to 2 days. 2. Nausea/vomiting, improving ? Reports symptoms for about 2 days prior to admission. Symptoms improving. Seems most likely to be a viral gastroenteritis. Will monitor. 3. Acute debility ? PT/OT/case management following. Patient lives at home with , has good functional status at baseline. Acute debility presumed secondary to possible GI illness and poor p.o. intake. Therapy scores improving, planning for home with outpatient physical therapy as needed. 4. Hypothyroidism ? TSH 11.30 on admit. TSH notably was 0.92 on 03/15. Unclear if dose change to Synthroid was made at that time. Patient reports compliance. Will continue Synthroid 88 mcg daily for now. Recommend outpatient follow-up with PCP for dose adjustments. 5. Abnormal chest imaging, history of pulmonary fibrosis ? Chest x-ray on admit concerning for possible right sided pneumonia. Chest CT showed consolidation in posterior aspect of right midlung unchanged from previous chest CT in March. Patient notably with no pneumonia symptoms and afebrile. Suspect chronic lung changes rather than an acute pneumonia, no need for antibiotic treatment at this time. 6. Hypertension ? Home medications of Lopressor and losartan. Previously was on hydrochlorothiazide but this was discontinued about 2 weeks prior to admission due to hyponatremia as noted above. Was hypertensive on admission, thought secondary to being unable to keep her home medications down. However, she remained fairly hypertensive despite restarting Lopressor and losartan. Amlodipine 5 mg daily added on 06/05. Blood pressures improved on amlodipine but patient did report orthostatic type symptoms on 06/06, orthostatic vitals ordered and can adjust medications further as needed. DVT prophylaxis: Lovenox CODE STATUS: Full code, verified Expected disposition: Home, 1 to 2 days Total clinical time spent by myself addressing the patient's medical issues, reviewing all the data, and collaborating with patient's care team: 35 minutes. Charges/Coding Visit Charges Inpatient E&M: 21773 Subs Hosp L2
[2024-06-06 13:30] VITALS: BP 116/52; BP 124/56; BP 131/56; PULSE 74
[2024-06-06 20:42] VITALS: BP 146/71; PULSE 73; RESP 16; TEMP 36.5; O2SAT 97
[2024-06-06 20:43] VITALS: BP 146/71; PULSE 73
[2024-06-07 03:44] VITALS: BP 136/68; PULSE 63; RESP 16; TEMP 36.6; O2SAT 97
[2024-06-07] MEDS: Levothyroxine 88 MCG Tablet PO (06:44)
[2024-06-07] MEDS: Sodium Chloride 1 GM Tablet 2 GM PO ×3 (06:44→20:55)
[2024-06-07 06:59] LABS: Anion Gap 6 (5-15); BUN 17 mg/dL (7-18); BUN/Creat Ratio 29.8 RATIO (10-20); Calcium,Total 8.9 mg/dL (8.5-10.1); Chloride 95 mmol/L (98-107); Creatinine, Serum 0.57 mg/dL (0.55-1.02); EST Glomerular Filtration Rate 107 mL/min (>60); Est Glom Filt Rate - Afr Amer 130 mL/min (>60); Estimated Creatinine Clearance 48.86 ml/min; Glucose 99 mg/dL (74-106); Potassium 3.6 mmol/L (3.5-5.1); Sodium Level 127 mmol/L (136-145)
[2024-06-07 09:56] VITALS: BP 107/47; PULSE 80
[2024-06-07 10:00] VITALS: BP 107/47; PULSE 80; RESP 18; TEMP 36.6; O2SAT 96
--- NOTE | 2024-06-07 12:36 | PCM.PN.REN ---
Subjective Subjective Following for acute on chronic hyponatremia Patient sitting in recliner chair, no overnight events. Denies any nausea, vomiting or diarrhea. Objective Data Objective Data Vital Signs: Vital Signs Temp Pulse Resp BP Pulse Ox O2 Del Method 97.9 F 80 18 107/47 L 96 Room Air 06/07/24 10:00 06/07/24 10:00 06/07/24 10:00 06/07/24 10:00 06/07/24 10:00 06/07/24 10:12 Oxygen Delivery Method Room Air Weight: 60.2 kg Body Mass Index (BMI) 20.7 Intake & Output: Intake and Output for Last 24 Hours 06/05/24 06/06/24 06/07/24 23:59 23:59 23:59 Intake Total 100 / 100 180 / 180 Output Total 800 / 800 950 / 950 500 / 500 Balance -700 / -700 -950 / -950 -320 / -320 Lab / Micro Data 06/05/24 07:25 06/07/24 05:44 Labs: Laboratory Results - last 24 hr 06/07/24 05:44: Sodium 127 L, Potassium 3.6, Chloride 95 L, Carbon Dioxide 26.0, Anion Gap 6, BUN 17, Creatinine 0.57, Estim Creat Clear Calc 48.86, Est GFR (MDRD) Af Amer 130, Est GFR (MDRD) Non-Af 107, BUN/Creatinine Ratio 29.8 H, Glucose 99, Calcium 8.9 Physical Exam Narrative Alert and oriented, no acute distress S1, S2, RRR lung sounds clear Abdomen soft No edema Assessment & Plan Assessment/Plan (1) Hyponatremia: PLAN: Plan Acute on chronic in nature. Baseline sodium unknown -Urinary studies consistent with increased ADH activity -Sodium 127mmol/L which improved from 118 mmol/L 06/04. There has been slow, appropriate improvement in serum sodium daily. -Continue with free water restriction 1.5 L/day and sodium chloride tablets -Asymptomatic hence no need for hypertonic saline -Labs ordered for a.m. Patient does not need frequent sodium checks. -Preserved kidney function, SCr 0.57mg/dL. - Discussed nephrology plan with patient and her at bedside. Discussed nephrology plan with Dr. Kitchen.
--- NOTE | 2024-06-07 13:20 | PCM.PN.HOSP ---
Reason for Visit Reason for Visit: Diagnoses Hypo-osmolality and hyponatremia (06/04/24) Hypertensive urgency (06/04/24) Nausea with vomiting, unspecified (06/04/24) Other malaise (06/04/24) Abnormal findings on diagnostic imaging of other specified body structures (06/04/24) Subjective Subjective No acute events overnight. Saw patient at bedside this morning, multiple family members present. Patient appeared similar today to yesterday. Sitting up comfortably in bedside chair, in no acute distress. Continues to appear somewhat fatigued and has fairly flat affect with short, measured responses. States that she felt somewhat improved earlier this morning but then on moving to the bedside chair and eating breakfast she did not feel as well. Reported some degree of lightheadedness/dizziness again with going from sitting to standing. Notably, orthostatic vitals were negative yesterday but she did have a mild blood pressure drop with sitting to standing. She otherwise denied any new concerns today. Objective Data Objective Data Vital Signs: Vital Signs Temp Pulse Resp BP Pulse Ox O2 Del Method 97.9 F 80 18 107/47 L 96 Room Air 06/07/24 10:00 06/07/24 10:00 06/07/24 10:00 06/07/24 10:00 06/07/24 10:00 06/07/24 10:12 Oxygen Delivery Method Room Air Weight: 60.2 kg Body Mass Index (BMI) 20.7 Intake & Output: Intake and Output for Last 24 Hours 06/05/24 06/06/24 06/07/24 23:59 23:59 23:59 Intake Total 100 / 100 180 / 180 Output Total 800 / 800 950 / 950 500 / 500 Balance -700 / -700 -950 / -950 -320 / -320 Lab / Micro Data 06/05/24 07:25 06/07/24 05:44 Labs: Laboratory Results - last 24 hr 06/07/24 05:44: Sodium 127 L, Potassium 3.6, Chloride 95 L, Carbon Dioxide 26.0, Anion Gap 6, BUN 17, Creatinine 0.57, Estim Creat Clear Calc 48.86, Est GFR (MDRD) Af Amer 130, Est GFR (MDRD) Non-Af 107, BUN/Creatinine Ratio 29.8 H, Glucose 99, Calcium 8.9 Physical Exam Const alert, oriented x3, no apparent distress and average body habitus Constitutional Narrative: Elderly female, mildly fatigued appearing, otherwise sitting up comfortably in bed, conversing normally, in no acute distress. Stable. General Appearance: cooperative and comfortable HEENT normocephalic, head/scalp atraumatic, hearing grossly normal bilaterally and nasal mucous membranes and turbinates normal Eyes PERRL, EOMs intact bilaterally and conjunctivae normal Neck full ROM Chest inspection of chest normal Resp normal respiratory effort, normal air movement, no use of accessory muscles and clear to auscultation bilaterally Cardio regular rate, regular rhythm, no murmurs and peripheral pulses 2+ throughout GI normal to inspection, nondistended, normoactive bowel sounds, soft to palpation, non-tender and non-distended Back/Spine normal ROM Extremity normal to inspection, full ROM and no pedal edema Skin no rashes or lesions noted Neuro no focal motor deficits and no sensory deficits noted Speech: speech normal Psych mental status grossly normal Psych Narrative: Flat affect. Assessment & Plan Assessment/Plan (1) Hyponatremia: (2) Nausea & vomiting: (3) Debility: PLAN: Plan Patient is an 83-year-old female who presented [facility] ED on 06/03/2024 with worsening weakness and GI symptoms. 1. Acute on chronic hyponatremia, improving ? Nephrology following. Sodium 129 on morning of 06/03, was given IV fluids in the ED and discharged home. Returned with worsening symptoms and had sodium of 122 at that time. Chloride had also decreased from 96 to 90. Given further IV normal saline overnight, repeat sodium 118 on morning of 06/04. 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 Undertreated hypothyroidism could be playing a small role. Notably was on hydrochlorothiazide previously but this was discontinued by PCP about 2 weeks prior to admission. Per nephrology recommendations, placed on strict 1500 mL fluid restriction and started on salt tabs 2 g 3 times daily on 06/04. Sodium improving, most recent sodium 127 on 06/07. Continue current treatment and monitor sodium level daily. Likely okay for discharge home in the next 1 to 2 days. 2. Nausea/vomiting, improving ? Reports symptoms for about 2 days prior to admission. Symptoms improving. Seems most likely to be a viral gastroenteritis. Will monitor. 3. Acute debility ? PT/OT/case management following. Patient lives at home with , has good functional status at baseline. Acute debility presumed secondary to possible GI illness and poor p.o. intake. Therapy scores improving but patient continues to feel more debilitated than her baseline. Planning for home with home health care on discharge. 4. Hypothyroidism ? TSH 11.30 on admit. TSH notably was 0.92 on 03/15. Unclear if dose change to Synthroid was made at that time. Patient reports compliance. Will continue Synthroid 88 mcg daily for now. Recommend outpatient follow-up with PCP for dose adjustments. 5. Abnormal chest imaging, history of pulmonary fibrosis ? Chest x-ray on admit concerning for possible right sided pneumonia. Chest CT showed consolidation in posterior aspect of right midlung unchanged from previous chest CT in March. Patient notably with no pneumonia symptoms and afebrile. Suspect chronic lung changes rather than an acute pneumonia, no need for antibiotic treatment at this time. 6. Hypertension ? Home medications of Lopressor and losartan. Previously was on hydrochlorothiazide but this was discontinued about 2 weeks prior to admission due to hyponatremia as noted above. Was hypertensive on admission, thought secondary to being unable to keep her home medications down. However, she remained fairly hypertensive despite restarting Lopressor and losartan. Amlodipine 5 mg daily was added on 06/05. Blood pressures improved on amlodipine but patient reported orthostatic symptoms; orthostatic vitals were negative but there was a mild blood pressure drop and patient continued to report symptoms on both 06/06 and 06/07, so amlodipine was discontinued on 06/07. Continue to monitor BP and symptoms. DVT prophylaxis: Lovenox CODE STATUS: Full code, verified Expected disposition: Home with [facility], 1 to 2 days Total clinical time spent by myself addressing the patient's medical issues, reviewing all the data, and collaborating with patient's care team: 35 minutes. Charges/Coding Visit Charges Inpatient E&M: 96838 Subs Hosp L2
[2024-06-07 15:56] VITALS: BP 158/74; PULSE 77; RESP 18; TEMP 36.8; O2SAT 97
--- NOTE | 2024-06-07 16:01 | CASEMGMT ---
JULIANNA updated this RN CM that the pt is wanting C set up. This RN CM to pt room at this time. Pt at bedside. Pt states that the HHC list was left at their home. DREA Aceves assistant professor of dietetics, printed another [facility] list for the pt. List provided at this time. Pt and pt both state that they would prefer [facility] at this time. TC to Nadja at [facility] and referral made for SN, PT, and OT. Awaiting return response. Pt projected DC date is tomorrow 06/08. [facility].
[2024-06-07 20:50] VITALS: BP 158/76; PULSE 85; RESP 16; TEMP 36.6; O2SAT 97
[2024-06-07 20:55] VITALS: PULSE 85
[2024-06-07] MEDS: Metoprolol Tartrate 25 MG Tablet PO (20:55)
[2024-06-08] MEDS: Sodium Chloride 1 GM Tablet 2 GM PO (05:30)
[2024-06-08] MEDS: Levothyroxine 88 MCG Tablet PO (05:30)
[2024-06-08 06:08] VITALS: BP 135/59; PULSE 73; RESP 16; TEMP 36.3; O2SAT 95
[2024-06-08 07:10] LABS: Anion Gap 5 (5-15); BUN 13 mg/dL (7-18); BUN/Creat Ratio 19.5 RATIO (10-20); Calcium,Total 8.8 mg/dL (8.5-10.1); Chloride 99 mmol/L (98-107); Creatinine, Serum 0.67 mg/dL (0.55-1.02); EST Glomerular Filtration Rate 89 mL/min (>60); Est Glom Filt Rate - Afr Amer 108 mL/min (>60); Estimated Creatinine Clearance 48.86 ml/min; Glucose 117 mg/dL (74-106); Potassium 3.7 mmol/L (3.5-5.1); Sodium Level 130 mmol/L (136-145)
[2024-06-08 07:42] VITALS: BP 169/72; PULSE 72; RESP 18; TEMP 36.6; O2SAT 97
--- NOTE | 2024-06-08 09:47 | PCM.DC ---
Discharge Instructions Diet Discharge Diet: 6 Cup Fluid Restriction Activity Discharge Activity: No Restrictions Follow Up Care Test Results: Test results from this visit will be discussed in further detail at your follow-up appointment, if applicable. Discharge Plan Admission Admit Date/Time: 06/04/24 10:30 Primary Reason for Your Visit: weakness Attending Provider: Leonardo Kitchen Primary Care Provider: Cally Ludwig NP Consulting Providers: Dwayne Montiel; Brie Ivan Instructions Additional Instructions / Restrictions: Please take salt tablets three times daily for the next 2 weeks. Home health care will come in to see you in the next 1-2 days. Please have a repeat sodium level blood draw in about 1 week. Discharge Orders/Prescriptions Prescriptions: New sodium chloride 1,000 mg Tablet,Soluble 2,000 mg PO TID 14 Days Qty: 84 0RF Continued levothyroxine 88 mcg capsule 88 mcg PO DAILY losartan 50 mg Tablet 50 mg PO DAILY Qty: 30 2RF metoprolol tartrate 25 mg tablet 25 mg PO BID Qty: 60 2RF ondansetron 4 mg tablet,disintegrating 4 mg PO Q8H PRN PRN (Reason: Nausea) Qty: 10 0RF Discontinued doxycycline hyclate 100 mg tablet 100 mg PO BID Qty: 10 0RF levofloxacin 750 mg tablet 750 mg PO DAILY Qty: 4 0RF Other Ambulatory Orders: Basic Metabolic Profile (BMP) (Routine) Timeframe: 1 Week Facility: [facility] - Location: Laboratory Ordered By: Dr. Leonardo Kitchen Referrals / Follow Up: Cally Ludwig NP, SUPERINTENDENT RECREATION-C [Primary Care Provider] - Disposition Disposition (needs filled in before D/C Order can be placed): Home Health Service
--- NOTE | 2024-06-08 09:52 | DS.PCM_ITS ---
Providers Date of Admission: 06/04/24 Date of Discharge: 06/08/24 Primary Care Physician: JETT David Consultations 06/04/24 07:36 Consult: Nephrology Routine Consulting Provider: Brie Ivan Reason for Consult: worsening hyponatremia suspected due to SIADH EMERGENT Consult: No MD Notified: Yes Date Notified: 06/04/24 Time Notified: 08:06 Method of Notification: Text Reason For Visit: WEAKNESS Diagnosis Discharge Diagnosis (1) Hyponatremia: Status: Acute Code(s): E87.1 - Hypo-osmolality and hyponatremia (2) Nausea & vomiting: Status: Acute Code(s): R11.2 - Nausea with vomiting, unspecified (3) Debility: Status: Acute Code(s): R53.81 - Other malaise Medications at Discharge Home Medications levothyroxine 88 mcg capsule 88 mcg PO DAILY thyroid 05/23/23 losartan 50 mg tablet 50 mg PO DAILY bp #30 tabs 03/16/24 metoprolol tartrate 25 mg tablet 25 mg PO BID heart #60 tabs 03/16/24 ondansetron 4 mg disintegrating tablet 4 mg PO Q8H PRN PRN Nausea #10 tabs 06/03/24 sodium chloride 1,000 mg soluble tablet 2,000 mg (2 x 1,000 mg) PO TID 14 days #84 tabs 06/08/24 Hospital Course Operations None Procedures EKG and - (Chest x-ray x 2, CT brain, CT chest) Summary of Care Provided Minutes Spent on Discharge: 35 Hospital Course: Patient is an 83-year-old female who presented [facility] ED on 06/03/2024 with worsening weakness and GI symptoms. Hospital course as noted below. Discharged home with home health care in stable condition on 06/08. 1. Acute on chronic hyponatremia, improving ? Nephrology followed. Sodium 129 on morning of 06/03, was given IV fluids in the ED and discharged home. Returned with worsening symptoms and had sodium of 122 at that time. Chloride had also decreased from 96 to 90. Given further IV normal saline overnight, repeat sodium 118 on morning of 06/04. 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 Undertreated hypothyroidism could be playing a small role. Notably was on hydrochlorothiazide previously but this was discontinued by PCP about 2 weeks prior to admission. Per nephrology recommendations, placed on strict 1500 mL fluid restriction and started on salt tabs 2 g 3 times daily on 06/04. Sodium steadily improved during hospitalization, sodium 130 on day of discharge. Recommend repeat BMP about 1 week after discharge to ensure sodium level remained stable. Will continue salt tabs for 2 weeks after discharge then okay to discontinue. 2. Nausea/vomiting, resolved ? Reports symptoms for about 2 days prior to admission. Symptoms resolved by hospital day 3. Seems most likely to be a viral gastroenteritis. Treated with supportive care. 3. Acute debility ? PT/OT/case management followed. Patient lives at home with , has good functional status at baseline. Acute debility presumed secondary to possible GI illness and poor p.o. intake. Therapy scores improved during hospitalization but patient continued to feel more debilitated than her baseline. Discharged home with home health care in stable condition. 4. Hypothyroidism ? TSH 11.30 on admit. TSH notably was 0.92 on 03/15. Unclear if dose change to Synthroid was made at that time. Patient reports compliance. Will continue Synthroid 88 mcg daily for now. Recommend outpatient follow-up with PCP for dose adjustments. 5. Abnormal chest imaging, history of pulmonary fibrosis ? Chest x-ray on admit concerning for possible right sided pneumonia. Chest CT showed consolidation in posterior aspect of right midlung unchanged from previous chest CT in March. Patient notably with no pneumonia symptoms and afebrile. Suspect chronic lung changes rather than an acute pneumonia, no need for antibiotic treatment at this time. 6. Hypertension ? Home medications of Lopressor and losartan. Previously was on hydrochlorothiazide but this was discontinued about 2 weeks prior to admission due to hyponatremia as noted above. Was hypertensive on admission, thought secondary to being unable to keep her home medications down. However, she remained fairly hypertensive despite restarting Lopressor and losartan. Amlodipine 5 mg daily was added on 06/05. Blood pressures improved on amlodipine but patient reported orthostatic symptoms; orthostatic vitals were negative but there was a mild blood pressure drop and patient continued to report symptoms on both 06/06 and 06/07, so amlodipine was discontinued on 06/07. Symptoms improved on day of discharge. Continue home Lopressor and losartan on discharge. Total clinical time spent by myself addressing the patient's medical issues, reviewing all the data, and collaborating with patient's care team: 35 minutes. Physical Exam Const alert, oriented x3, no apparent distress and average body habitus Constitutional Narrative: Elderly female, energy improved during admission, sitting up comfortably in bed, conversing normally, in no acute distress. General Appearance: cooperative and comfortable HEENT normocephalic, head/scalp atraumatic, hearing grossly normal bilaterally and nasal mucous membranes and turbinates normal Eyes PERRL, EOMs intact bilaterally and conjunctivae normal Neck full ROM Chest inspection of chest normal Resp normal respiratory effort, normal air movement, no use of accessory muscles and clear to auscultation bilaterally Cardio regular rate, regular rhythm, no murmurs and peripheral pulses 2+ throughout GI normal to inspection, nondistended, normoactive bowel sounds, soft to palpation, non-tender and non-distended Back/Spine normal ROM Extremity normal to inspection, full ROM and no pedal edema Skin no rashes or lesions noted Neuro no focal motor deficits and no sensory deficits noted Speech: speech normal Psych mental status grossly normal Psych Narrative: Flat affect. Weight / BMI Weight Weight: 60.2 kg Body Mass Index (BMI) 20.7 ABG / Lab / Microbiology Data 06/05/24 07:25 06/08/24 05:44 Laboratory: Laboratory Results - last 24 hr 06/08/24 05:44: Sodium 130 L, Potassium 3.7, Chloride 99, Carbon Dioxide 26.0, Anion Gap 5, BUN 13, Creatinine 0.67, Estim Creat Clear Calc 48.86, Est GFR (MDRD) Af Amer 108, Est GFR (MDRD) Non-Af 89, BUN/Creatinine Ratio 19.5, Glucose 117 H, Calcium 8.8 D/C Instructions Discharge Diet: 6 Cup Fluid Restriction Meaningful Use Info Meaningful Use Meaningful Use Diagnoses (Choose all that apply): None applicable Ischemic Stroke Statin Dosing Therapy Reference: STATIN DOSE THERAPY REFERENCE: * Patients > 75 years receive moderate or high dose statin therapy. * Patients 75 years or YOUNGER should receive HIGH intensity statin dose unless contraindicated. You will be required to document reason for non-treatment if statin daily dose does not meet guidelines. HIGH DOSE STATIN THERAPY DAILY Atorvastatin > than or = to 40 mg Rosuvastatin > than or = to 20 mg Amlodipine + Atorvastatin > than or = to 2.5/40 mg Ezetimibe + Simvastatin 10/80 mg Simvastatin 80mg Discharge Plan Admission Admit Date/Time: 06/04/24 10:30 Primary Reason for Your Visit: weakness Attending Provider: Leonardo Kitchen Primary Care Provider: Cally Luwdig NP Consulting Providers: Dwayne Montiel; Brie Ivan Instructions Additional Instructions / Restrictions: Please take salt tablets three times daily for the next 2 weeks. Home health care will come in to see you in the next 1-2 days. Please have a repeat sodium level blood draw in about 1 week. Discharge Orders/Prescriptions Prescriptions: New sodium chloride 1,000 mg Tablet,Soluble 2,000 mg PO TID 14 Days Qty: 84 0RF Continued levothyroxine 88 mcg capsule 88 mcg PO DAILY losartan 50 mg Tablet 50 mg PO DAILY Qty: 30 2RF metoprolol tartrate 25 mg tablet 25 mg PO BID Qty: 60 2RF ondansetron 4 mg tablet,disintegrating 4 mg PO Q8H PRN PRN (Reason: Nausea) Qty: 10 0RF Discontinued doxycycline hyclate 100 mg tablet 100 mg PO BID Qty: 10 0RF levofloxacin 750 mg tablet 750 mg PO DAILY Qty: 4 0RF Other Ambulatory Orders: Basic Metabolic Profile (BMP) (Routine) Timeframe: 1 Week Facility: [facility] - Location: Laboratory Ordered By: Dr. Leonardo Kitchen Referrals / Follow Up: Cally Ludwig NP, ACOUSTICAL TILE D[employer]LL PRESS OPERATOR-C [Primary Care Provider] - Disposition Disposition (needs filled in before D/C Order can be placed): Home Health Service Charges/Coding Visit Charges Inpatient E&M: 76397 Disch Hosp >30min
[2024-06-08 09:53] VITALS: PULSE 72
[2024-06-08] MEDS: Metoprolol Tartrate 25 MG Tablet PO (09:53)
[2024-06-08] MEDS: Losartan Potassium 50 MG Tablet PO (09:54)
--- NOTE | 2024-06-08 10:58 | CASEMGMT ---
Social Work Manuela Coats, Juliano leroy, came up to see pt and family. Pt is not [employer] so switched to self pay. They plan to also pay for C. Family was not interested in resources, however Ana from [employer] is still going to touch base w/family. SW remains available should any needs arise. KENNETH Henry
--- NOTE | 2024-06-08 11:02 | CASEMGMT ---
Addendum entered by Owen Grullon 06/08/24 11:48: [facility] calls and states that they are able to take 20% off the pt bill per visit. [facility] also states that they can start Care on . DC plan updated. Report given to MS3 RN CM. Original Note: Per the [facility] liaison, the pt does not have AA and will be self pay for the [facility]. The cost per visit is 266$. This RN CM to pt room at this time and updated with this information. Pt states that she is OK with this and is willing to at least have an evaluation done at home. This RN CM called [facility] and updated Nadja with this. Nadja states that they can accept and will let this RN CM know when the SOC will be.
[2024-06-08 11:21] VITALS: BP 133/59; PULSE 71; RESP 18; TEMP 36.6; O2SAT 96
--- NOTE | 2024-06-08 12:19 | CASEMGMT ---
BILL CM into pt room, notified pt that [facility] was able to take 20% off, pt rate will be $213. Notified Pt SOC will be 06/10.
--- NOTE | 2024-06-08 13:03 | PHA.DC.MC.R ---
Pharmacy [facility] has performed discharge medication reconciliation and counseling for this patient. 1. SODIUM CHLORIDE 2GM PO TID X 14 DAYS The patient's discharge medication list was reviewed for discrepancies and discrepancies were resolved. The patient was counseled on the following discharge medications and changes in medications for homegoing were reviewed. The Reason for Use, instructions for use, and potential side effects were reviewed for all new medications. The patient's questions regarding all of their medications were answered. The patient was able to verbally demonstrate an understanding of their discharge medications. Medications at Discharge Home Medications levothyroxine 88 mcg capsule 88 mcg PO DAILY thyroid 05/23/23 losartan 50 mg tablet 50 mg PO DAILY bp #30 tabs 03/16/24 metoprolol tartrate 25 mg tablet 25 mg PO BID heart #60 tabs 03/16/24 ondansetron 4 mg disintegrating tablet 4 mg PO Q8H PRN PRN Nausea #10 tabs 06/03/24 sodium chloride 1,000 mg soluble tablet 2,000 mg (2 x 1,000 mg) PO TID 14 days #84 tabs 06/08/24
== END 2024-06-08 13:41 | disposition home health service (06) | DRG 641 ==
LOC: ED 22:22 → MS3 06-04 01:40
PROVIDERS: Internal Medicine; Emergency Provider Emergency Medicine; PCP Nurse Practitioner Primary Care; Visit Provider Hospitalist
DX: E87.1 Hypo-osmolality and hyponatremia (principal); A08.4 Viral intestinal infection, unspecified; J84.10 Pulmonary fibrosis, unspecified; E03.9 Hypothyroidism, unspecified; I10 Essential (primary) hypertension; I16.0 Hypertensive urgency; R53.81 Other malaise
CPT/HCPCS: 36415; 71046; 71260; 80048; 82533; 83735; 83930; 83935; 84295; 84300; 84443; 85025; 85027; 97162; 97166; 97530; 97535; 99283; J7030; Q9967; A4216; J2405

== ENCOUNTER 2024-10-02 11:03 | Inpatient (IN) | payer OTHER, SELFPAY ==
[2024-10-02] VITALS (11 sets, daily range): BP systolic 146–172; BP diastolic 68–116; PULSE 87–96; RESP 16–22; TEMP 36.5–36.8; O2SAT 94–100; BMI 21.6; BMI 20.2
--- NOTE | 2024-10-02 11:14 | EKG12_ITS ---
Test Reason : STROKE ALERT Blood Pressure : */* mmHG Vent. Rate : 85 BPM Atrial Rate : 85 BPM P-R Int : 200 ms QRS Dur : 80 ms QT Int : 354 ms P-R-T Axes : 50 59 66 degrees QTcB Int : 421 ms Normal sinus rhythm Septal infarct , age undetermined Abnormal ECG Confirmed by Tony Garcia ([id number]), sports editor SABRINA GALEANA ([id number]) on 10/04/2024 11:34:56 AM Referred By: Confirmed By: Tony Garcia
--- NOTE | 2024-10-02 11:16 | CT_ITS ---
INDICATION: right sided weakness EXAMINATION: CTA HEAD - CTA Head and Neck W/ Contrast Injection (and W/O Contrast Images if performed) TECHNIQUE: [place]/head CT angiogram protocol was performed following IV contrast. Routine carotid CT angiogram protocol was performed with IV contrast. NASCET criteria using the distal ICAs for comparison were used for evaluation of stenoses. 3D reconstructions were reviewed of the CT angiogram head and neck. A radiation dose optimization technique was used for this scan. IV Contrast dosage and agent: 1 cc [id number] COMPARISON: None. FINDINGS: --Anterior cerebral circulation: ACAs: No significant stenosis at the visualized segments. ACOM: Not present. MCAs: No significant stenosis at the visualized segments. --Posterior cerebral circulation: PCOMs: Not present. flower cheniller: No significant stenosis at the visualized segments. BASILAR ARTERY: No significant stenosis. --Carotid and vertebral circulation: AORTIC ARCH AND BRANCHES: Normal anatomy, patent. RIGHT CCA: No occlusion, significant stenosis or dissection. RIGHT ICA: No occlusion, significant stenosis or dissection. LEFT CCA: No occlusion, significant stenosis or dissection. LEFT ICA: No occlusion, significant stenosis or dissection. RIGHT VERTEBRAL ARTERY: No occlusion, significant stenosis or dissection. LEFT VERTEBRAL ARTERY: No occlusion, significant stenosis or dissection. NECK SOFT TISSUES: Unremarkable. LUNG APICES: Volume loss changes, bronchiectasis and pleural parenchymal soft tissue thickening and cavitation unchanged from prior study of 06/04/2024. BONES: Diffuse spondylosis CT/CTA Head AND Neck W/ Contrast IMPRESSION: No evidence of arterial occlusion, significant stenosis, dissection or intracranial aneurysm. 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
--- NOTE | 2024-10-02 11:16 | EDS_ITS ---
HPI History of Present Illness Chief Complaint: Neuro S/Sx Detail of Chief Complaint: Lightheadedness and right-sided weakness Informant: patient, spouse/S.O. and family Narrative Narrative: Patient presents to the emergency department complaint of feeling lightheaded this morning. Patient apparently had a hard time getting up off the toilet. She also was complaining of right sided weakness compared to the left side. She thinks her speech is more slow but denied slurred speech or difficulty finding words. Patient generally feels weak today. She was last known well last night before bed around 930 pm. Patient not on blood thinners. Patient has history of low sodium. [facility] Medical History Anemia Adverse drug reaction Respiratory insufficiency Hypothyroidism Sinus tachycardia seen on clinical research monitor Hypertension Acute hyponatremia Hypoxia Pulmonary fibrosis Right lower lobe pneumonia Pulmonary fibrosis Home Medications ?Medication ?Instructions ?Recorded ?Last Taken ?Type levothyroxine 88 mcg capsule 88 mcg PO DAILY thyroid 05/23/23 Unknown History metoprolol tartrate 25 mg tablet 25 mg PO BID heart #60 tabs 03/16/24 Unknown Rx ondansetron 4 mg disintegrating 4 mg PO Q8H PRN PRN Nausea #10 tabs 06/03/24 Unknown Rx tablet loratadine 10 mg tablet 10 mg PO DAILY #90 tabs 07/14/24 Unknown Rx montelukast 10 mg tablet 10 mg PO QPM #90 tabs 07/14/24 Unknown Rx prednisone 20 mg tablet 60 mg (3 x 20 mg) PO QDAY #15 tabs 07/14/24 Unknown Rx Allergy/AdvReac Type Severity Reaction Status Date / Time Sulfa (Sulfonamide Allergy PT UNSURE Verified 10/02/24 11:05 Antibiotics) OF REACTION hydrochlorothiazide AdvReac Unknown Other Verified 10/02/24 11:05 Family History Sister Asthma Surgical History no surgical history Social History Smoking Status: Never smoker ROS ROS ED Review of Systems ROS Unobtainable: other Constitutional Constitutional ED: Reports lethargy; Denies chills, fever(s), sweats or weight loss Eyes Eyes: Denies blurry vision, change in vision or diplopia ENT ENT ED: Denies rhinorrhea or sore throat Cardiovascular Cardiovascular: Denies chest pain, orthopnea or racing heartbeat Respiratory/Chest Respiratory/Chest: Denies cough, dyspnea, dyspnea on exertion, orthopnea or sputum Gastrointestinal Gastrointestinal: Denies abdominal pain, diarrhea, nausea or vomiting Genitourinary Genitourinary ED: Reports urinary frequency; Denies dysuria or hematuria Musculoskeletal Musculoskeletal: Denies arthralgias, back pain, myalgias or neck pain Integumentary Denies abscess, Abrasions or rash Neurologic Neurologic: Reports weakness and other Details: Lightheadedness ; Denies headache(s) Psychiatric Psychiatric: Denies anxiety, depression or suicidal thoughts Endocrine Endocrinology: Denies polydipsia, polyphagia or polyuria Hematologic/Lymphatic Hematologic/Lymphatic: Denies easy bleeding, easy bruising or lymphadenopathy Allergic/Immunologic Allergic/Immunologic ED: Denies mouth swelling, tongue swelling or urticaria EXAM Physical Exam Const Vital Signs: 10/02/24 11:03 10/02/24 11:14 10/02/24 11:14 Temperature 97.8 F Temperature Source Temporal Pulse Rate 91 88 Respiratory Rate 18 16 Blood Pressure 156/69 H 162/76 H Blood Pressure Mean 98 104 Pulse Ox 100 94 95 Oxygen Delivery Method Room Air Room Air Room Air 10/02/24 11:44 10/02/24 12:14 10/02/24 12:30 Temperature 98.3 F Temperature Source Temporal Pulse Rate 87 89 96 Respiratory Rate 20 H 18 22 H Blood Pressure 151/68 H 166/70 H 147/116 H Blood Pressure Mean 95 102 126 Pulse Ox 95 94 95 Oxygen Delivery Method Room Air Room Air Room Air Positive well nourished and well developed General Appearance ED: well developed and NAD HEENT Reports TM's clear and moist mucous membranes normocephalic and atraumatic; Negative for trauma or tenderness Tympanic Membrane ED: Yes TM's clear Eyes PERRL and EOMs intact bilaterally General Eye ED: Negative for pale conjunctiva or scleral icterus Neck no lymphadenopathy, supple and no JVD General: Negative for tenderness Chest Wall inspection of chest normal and palpation of chest normal Chest: Negative for tenderness Resp normal respiratory effort and clear to auscultation bilaterally Effort and Inspection: Negative for respiratory distress or pain with movement Auscultation: Negative for rhonchi, wheezes or diminished lung sounds Cardio regular rate, regular rhythm, S1 normal heart sound, S2 normal heart sound and no murmurs Peripheral Pulses: pulses 2+ throughout GI normal to inspection, nondistended, normoactive bowel sounds, soft to palpation, non-tender, non-distended and no masses Back/Spine no CVA tenderness and no thoracic nor lumbar tenderness Extremity normal to inspection General Extremety ED: Negative for edema General Extremity: Negative for edema Neuro oriented x3, CN's II-XII intact bilaterally, no sensory deficits noted and gait normal Neuro Narrative: GCS stroke scale for me is a 0. No obvious focal deficits noted. Patient did have difficulty standing. No nystagmus on exam. Sensorium / Orientation: awake, alert, oriented to person, oriented to place and oriented to time Motor Exam: strength 5/5 throughout and strength abnormal Psych mental status grossly normal Skin no rashes or lesions noted and no wounds MDM MDM MDM Narrative Medical decision making narrative: Patient presents with lightheadedness and weakness generalized but also more focal on the right side. Patient states that she actually had to think about how to use her right side and could not use it properly this morning upon waking. Last known well last evening around 9:30 PM when she went to bed. Patient also has history of hyponatremia in the past. Patient had a stroke team called. My initial NIH was 0 as I cannot appreciate any focal deficits or sensory deficits. CBC with differential recommend 9.6 with hemoglobin 12.0 and platelet count of 115. Chemistries unremarkable. Troponin was 4. CT scan of the brain without contrast showed chronic involutional changes. CTA of the head and neck were unremarkable. I discussed case with stroke neurologist at [facility] who agrees the patient is not a thrombolytic candidate. Patient was recommended to be admitted for MRI of the brain and further testing for possible metabolic abnormalities also. Will order urinalysis as well. Discussed with hospitalist will evaluate patient for admission Lab Data Attestation: I reviewed the patient's lab results. Labs: Laboratory Results - last 24 hr 10/02/24 10/02/24 11:15 11:18 WBC 9.6 RBC 4.71 Hgb 12.0 Hct 38.1 MCV 80.9 L MCH 25.5 L MCHC 31.5 L RDW Std Deviation 40.7 RDW Coeff of [place] 13.8 Plt Count 415 MPV 9.5 Immature Gran % (Auto) 0.400 Neut % (Auto) 58.1 Lymph % (Auto) 23.6 [place] % (Auto) 15.2 H Eos % (Auto) 1.9 Baso % (Auto) 0.8 Absolute Neuts (auto) 5.6 Absolute Lymphs (auto) 2.27 Nucleated RBC % 0 PT 12.7 INR 1.0 APTT 25.2 Sodium 134 L Potassium 4.4 Chloride 99 Carbon Dioxide 29.0 Anion Gap 5 BUN 21 H Creatinine 0.76 Estim Creat Clear Calc 50.00 Est GFR (MDRD) Af Amer 93 Est GFR (MDRD) Non-Af 77 BUN/Creatinine Ratio 27.7 H Glucose 121 H Calcium 9.6 Troponin I High Sens 4 POC Glucose 125 H Radiography Diagnostic Testing: Clinical Impression(s) from Imaging Studies Head/Neck CTA 10/02/24 11:16 IMPRESSION: No evidence of arterial occlusion, significant stenosis, dissection or intracranial aneurysm. Extensive chronic pleural-parenchymal changes of the right upper lobe of the lung Electronically Signed: Jose Banks MD at 12:39 EST , Brain CT 10/02/24 11:20 IMPRESSION: 1. No acute intracranial abnormality. 2. Stable chronic ischemic changes. Aspect score 10. Electronically Signed: Jose Banks MD at 11:32 EST , ADDENDUM: 10/02/24 1143 IMPRESSION: 1. No acute intracranial abnormality. 2. Stable chronic ischemic changes. Aspect score 10. N.B. : The above Results were Read Back by Jose Banks MD to Milly Green DO, and understanding confirmed on 10/02/2024 11:36:06 (ET). Electronically Signed: Jose Banks MD at 11:32 EST , Chest X-Ray 10/02/24 11:50 IMPRESSION: 1. Stable extensive cystic bronchiectatic changes of the right lung associated with pleural parenchymal opacities. 2. Stable bronchiectatic changes of the left lung with focal areas of chronic inflammatory change/scarring. Electronically Signed: Jose Banks MD at 12:48 EST Reading Location ID and State: [facility] / [place] Tel , Service support , 1 view chest x-ray obtained interpreted by myself as chronic pulmonary fibrosis type changes involving the right lung. Radiology in agreement. EKG Initial EKG: Attestation: I personally reviewed and interpreted this EKG as follows: Comments: Sinus rhythm with ventricular rate of 85 bpm with old septal infarct Discharge Plan Triage Chief Complaint: Neuro S/Sx ED Provider: Milly Green Dx/Rx/DC Orders Clinical Impression: Weakness, Lightheadedness, Difficulty with speech Prescriptions: No Action levothyroxine 88 mcg capsule 88 mcg PO DAILY montelukast 10 mg tablet 10 mg PO QPM Qty: 90 3RF prednisone 20 mg tablet 60 mg PO QDAY Qty: 15 0RF Rx Instructions: administer with food or milk loratadine 10 mg tablet 10 mg PO DAILY Qty: 90 3RF metoprolol tartrate 25 mg tablet 25 mg PO BID Qty: 60 2RF ondansetron 4 mg tablet,disintegrating 4 mg PO Q8H PRN PRN (Reason: Nausea) Qty: 10 0RF Primary Care Provider: Cally Ludwig NP Referrals: Cally Ludwig NP, CATTERY OPERATOR-C [Primary Care Provider] - Print Language: Portuguese Disposition Disposition: Acute Care Hospital [facility]
--- NOTE | 2024-10-02 11:20 | CT_ITS ---
We are attempting to reach an attending provider to discuss findings. An addendum with communication details will be sent when the communication is complete. EXAM: CT HEAD WITHOUT INTRAVENOUS CONTRAST CLINICAL INDICATION: Neuro deficit, acute, stroke suspected TECHNIQUE: Multiple axial images were obtained of the head without intravenous contrast. This CT exam was performed using one or more of the following dose reduction techniques: automated exposure control, adjustment of the mA and/or kV according to patient size, and/or use of iterative reconstruction technique. COMPARISON: CT Head dated 06/03/2024 FINDINGS: BRAIN AND EXTRA-AXIAL SPACES: No hemorrhage or mass effect. No acute ischemia. Areas of diminished white matter density noted within both cerebral hemispheres suggestive of chronic microvascular change. Prominence of the cortical sulci and ventricles related to volume loss change. Chronic right cerebellar cortical infarct again noted. BONES/JOINTS: Normal calvarium. SINUSES: No acute sinusitis. MASTOID AIR CELLS: Normal. Clear. CT/STROKE Brain/Head without Cont IMPRESSION: 1. No acute intracranial abnormality. 2. Stable chronic ischemic changes. Aspect score 10. Electronically Signed: Jose Banks MD at 11:32 EST ,
--- NOTE | 2024-10-02 11:20 | CM.ED ---
Social Work: Date of referral: 10/02/24 Reason for Referral: Stroke Alert aniline press worker provided initial support to patient's Alistair and son Santosh. No identified needs at this time. Radha Kahn, MERCHANDISE ASSOCIATE, AIRPORT TOWER CONTROLLER
[2024-10-02 11:28] LABS: Absolute Lymphocyte Count 2.27 X10^3/uL (0.83-4.51); Absolute Neutrophil Count 5.6 X10^3/uL (2.0-7.7); Basophil# 0.08 X10^3/uL; Basophil% 0.8 % (0-1); Eosinophil# 0.18 X10^3/uL; Eosinophils% 1.9 % (0-5); Hematocrit 38.1 % (37-47); Lymphocyte # 2.27 X10^3/ul (0.83-4.51); Lymphocyte % 23.6 % (19-41); Mean Corp Hgb Conc 31.5 g/dL (32-36); Mean Corpuscular Hgb 25.5 pg (27.0-32.0); Mean Corpuscular Volume 80.9 fL (81-99); Mean Platelet Vol. 9.5 fl (6.2-12.0); Monocyte# 1.46 X10^3/uL; Monocyte% 15.2 % (0-10); NRBC Flagged by Analyzer 0 % (0-5); Neutrophil # 5.57 X10^3/uL (2.7-7.7); Neutrophil % 58.1 % (47-70); Platelet Count 415 K/mm3 (150-450); RBC Distribution Width CV 13.8 % (11.6-14.6); RBC Distribution Width SD 40.7 fl (35.1-43.9); Red Blood Count 4.71 M/mm3 (4.2-5.4); White Blood Count 9.6 K/mm3 (4.4-11.0)
[2024-10-02 11:37] LABS: Bedside Glucose 125 mg/dL (74-106)
[2024-10-02 11:38] LABS: Prothrombin Time (Protime)PT. 12.7 SECONDS (11.7-14.9)
[2024-10-02 11:39] LABS: Partial Thromboplast Time 25.2 Seconds (24.1-36.2)
[2024-10-02] MEDS: 0.9% Normal Saline (1000mL) 1,000 ML 100 ML IV (11:46)
--- NOTE | 2024-10-02 11:50 | RAD_ITS ---
EXAM: XR CHEST, 1 VIEW CLINICAL INDICATION: Neuro deficit, acute, stroke suspected TECHNIQUE: Frontal view of the chest. COMPARISON: XR Chest dated 06/03/2024 FINDINGS: LUNGS AND PLEURAL SPACES: Stable volume loss change of the right lung with areas of cystic bronchiectasis involving the right upper and lower lobes associated with adjacent pleural thickening. Localized airspace opacification within the left upper lobe again noted not significantly changed from prior exam suggestive of chronic inflammatory change. Bronchiectatic changes are noted within the left lower lobe. HEART: Normal heart size. MEDIASTINUM: No mediastinal or hilar mass. BONES/JOINTS: No acute abnormality. RAD/Chest 1 View IMPRESSION: 1. Stable extensive cystic bronchiectatic changes of the right lung associated with pleural parenchymal opacities. 2. Stable bronchiectatic changes of the left lung with focal areas of chronic inflammatory change/scarring. Electronically Signed: Jose Banks MD at 12:48 EST ,
[2024-10-02 11:54] LABS: Anion Gap 5 (5-15); BUN 21 mg/dL (7-18); BUN/Creat Ratio 27.7 RATIO (10-20); Calcium,Total 9.6 mg/dL (8.5-10.1); Chloride 99 mmol/L (98-107); Creatinine, Serum 0.76 mg/dL (0.55-1.02); EST Glomerular Filtration Rate 77 mL/min (>60); Est Glom Filt Rate - Afr Amer 93 mL/min (>60); Glucose 121 mg/dL (74-106); Potassium 4.4 mmol/L (3.5-5.1); Sodium Level 134 mmol/L (136-145); Troponin-I HS 4 pg/mL (3.0-54.0)
--- NOTE | 2024-10-02 12:59 | HP.PCM.HOS_ITS ---
HPI - General General Date of Admission: 10/02/24 HPI Narrative MARILU SANDY, is a 83 F who presents to the hospital with right-sided weakness compared to the left, though she is unsure exactly when she noticed it. This has been subjective as while in the ER her NIH was 0. Initial stroke workup was unremarkable she has no prior history of a stroke though she has a significant family history of stroke. CT of the brain and CTA of the head and neck are unremarkable. [facility] Medical History Anemia Adverse drug reaction Respiratory insufficiency Hypothyroidism Sinus tachycardia seen on residential monitor Hypertension Acute hyponatremia Hypoxia Pulmonary fibrosis Right lower lobe pneumonia Pulmonary fibrosis Home Medications ?Medication ?Instructions ?Recorded ?Last Taken ?Type levothyroxine 88 mcg capsule 88 mcg PO DAILY thyroid 05/23/23 Unknown History metoprolol tartrate 25 mg tablet 25 mg PO BID heart #60 tabs 03/16/24 Unknown Rx ondansetron 4 mg disintegrating 4 mg PO Q8H PRN PRN Nausea #10 tabs 06/03/24 Unknown Rx tablet loratadine 10 mg tablet 10 mg PO DAILY #90 tabs 07/14/24 Unknown Rx montelukast 10 mg tablet 10 mg PO QPM #90 tabs 07/14/24 Unknown Rx amlodipine 2.5 mg tablet 2.5 mg PO DAILY 10/02/24 Unknown History losartan 25 mg tablet 25 mg PO DAILY 10/02/24 Unknown History sodium chloride 1,000 mg soluble 1,000 mg PO TID 10/02/24 Unknown History tablet Allergy/AdvReac Type Severity Reaction Status Date / Time Sulfa (Sulfonamide Allergy PT UNSURE Verified 10/02/24 11:05 Antibiotics) OF REACTION hydrochlorothiazide AdvReac Unknown Other Verified 10/02/24 11:05 Family History Sister Asthma Surgical History no surgical history no surgical history Social History Smoking Status: Never smoker ROS Constitutional Constitutional: Denies chills, fatigue, fever(s) or malaise Eyes Eyes: Denies blurry vision ENT HEENT: Denies headache(s) or nasal discharge Cardiovascular Cardiovascular: Denies chest pain, dyspnea on exertion or syncope Respiratory/Chest Respiratory/Chest: Denies cough, shortness of breath at rest or shortness of breath with exertion Gastrointestinal Gastrointestinal: Denies constipation, diarrhea, nausea or vomiting Genitourinary Genitourinary: Denies dysuria Neurologic Neurologic: Reports focal weakness; Denies numbness or tremor(s) Psychiatric Psychiatric: Denies anxiety or depression Vital Signs Vital Signs Vital Signs: 10/02/24 11:03 10/02/24 11:14 10/02/24 11:14 Temperature 97.8 F Temperature Source Temporal Pulse Rate 91 88 Respiratory Rate 18 16 Blood Pressure 156/69 H 162/76 H Blood Pressure Mean 98 104 Pulse Ox 100 94 95 Oxygen Delivery Method Room Air Room Air Room Air 10/02/24 11:44 10/02/24 12:14 10/02/24 12:30 Temperature 98.3 F Temperature Source Temporal Pulse Rate 87 89 96 Respiratory Rate 20 H 18 22 H Blood Pressure 151/68 H 166/70 H 147/116 H Blood Pressure Mean 95 102 126 Pulse Ox 95 94 95 Oxygen Delivery Method Room Air Room Air Room Air Weight Weight: 138 lb 3.677 oz Body Mass Index (BMI) 21.6 Physical Exam Narrative General: Alert, Oriented x3, Cooperative, No apparent distress HEENT: Atraumatic, PERRLA, EOMI, Normocephalic Oral: Moist Mucosa Neck: Supple, No JVD Lungs: Diminished, Normal air movement, No rhonchi, No wheeze, No rales Cardiovascular: Regular rate, Regular Rhythm, Normal S1, Normal S2, No murmurs Abdomen: Soft, Non Tender, Non-Distended, No Hepato-splenomegaly Extremities: No edema, Capillary Refill Less than 3 Seconds Skin: No rashes, No breakdown Musculoskeletal: No Tenderness to Palpation of Joints or Extremities Neurological: No focal neurological deficits, Motor Exam 5/5 strength throughout, Sensory exam intact to light touch and pain, NIH of 0 Psych/Mental Status: Flat Results Lab / Micro Data 10/02/24 11:15 10/02/24 11:15 Labs: Laboratory Results - last 24 hr 10/02/24 11:15: WBC 9.6, RBC 4.71, Hgb 12.0, Hct 38.1, MCV 80.9 L, MCH 25.5 L, M CHC 31.5 L, RDW Std Deviation 40.7, RDW Coeff of [place] 13.8, Plt Count 415, MPV 9.5, Immature Gran % (Auto) 0.400, Neut % (Auto) 58.1, Lymph % (Auto) 23.6, [place] % (Auto) 15.2 H, Eos % (Auto) 1.9, Baso % (Auto) 0.8, Absolute Neuts (auto) 5.6, Absolute Lymphs (auto) 2.27, Nucleated RBC % 0, PT 12.7, INR 1.0, APTT 25.2, S odium 134 L, Potassium 4.4, Chloride 99, Carbon Dioxide 29.0, Anion Gap 5, BUN 21 H, Creatinine 0.76, Estim Creat Clear Calc 50.00, Est GFR (MDRD) Af Amer 93, Est GFR (MDRD) Non-Af 77, BUN/Creatinine Ratio 27.7 H, Glucose 121 H, Calcium 9.6, Troponin I High Sens 4 10/02/24 11:18: POC Glucose 125 H Imaging Radiology Impression Head/Neck CTA 10/02/24 11:16 IMPRESSION: No evidence of arterial occlusion, significant stenosis, dissection or intracranial aneurysm. Extensive chronic pleural-parenchymal changes of the right upper lobe of the lung Electronically Signed: Jose Banks MD at 12:39 EST Reading Location ID and State: [facility] / [place] Tel , Service support , Brain CT 10/02/24 11:20 IMPRESSION: 1. No acute intracranial abnormality. 2. Stable chronic ischemic changes. Aspect score 10. Electronically Signed: Jose Banks MD at 11:32 EST , ADDENDUM: 10/02/24 1143 IMPRESSION: 1. No acute intracranial abnormality. 2. Stable chronic ischemic changes. Aspect score 10. N.B. : The above Results were Read Back by Jose Banks MD to Milly Green DO, and understanding confirmed on 10/02/2024 11:36:06 (ET). Electronically Signed: Jose Banks MD at 11:32 EST , Chest X-Ray 10/02/24 11:50 IMPRESSION: 1. Stable extensive cystic bronchiectatic changes of the right lung associated with pleural parenchymal opacities. 2. Stable bronchiectatic changes of the left lung with focal areas of chronic inflammatory change/scarring. Electronically Signed: Jose Banks MD at 12:48 EST , Assessment & Plan Assessment/Plan (1) TIA (transient ischemic attack): PLAN: Plan 1. TIA versus CVA ? Will obtain an MRI, if positive can proceed with a complete workup with echo ? Will hold her home blood pressure medications for permissive hypertension ? Will start her on aspirin and Lipitor given her age and presenting complaint 2. Essential HTN ? Stable, her home medications for now ? Will monitor make adjustments as necessary 3. Pulmonary fibrosis ? Continue with her home medications she follows up with the pulmonology clinic as an outpatient DVT: SCDs 55 minutes was spent on direct patient care, including documentation as well as chart review and collaboration with colleagues Charges/Coding Visit Charges Inpatient E&M: 68921 Init Hosp L2
[2024-10-02 13:19] LABS: Bacteria 0 SEEN /hpf (None Seen); Mucous, Urine 0 SEEN /hpf (<or=2+); Red Blood Cells-Urine 0 SEEN /hpf (0-5); Squamous Epithelial Cells - UA 0 SEEN /hpf (5-10); White Blood Cells 0 SEEN /hpf (0-5)
[2024-10-02 13:26] LABS: Color, Urine Yellow (Yellow); Glucose, Dipstick Normal (Normal); Ketone-Dipstick Negative (Negative); Leukocyte Esterase-Dipstick Negative /ul (Negative); Nitrite-Dipstick Negative (Negative); Occult Blood-Urine Negative /ul (Negative); Protein-Dipstick 15 mg/dl (Negative); Specific Gravity, Urine 1.005 (1.002-1.030); Urine Bilirubin Dipstick Negative (Negative); Urine Clarity Clear (Clear); Urine Urobilinogen Normal (Normal)
--- NOTE | 2024-10-02 13:29 | ED.RN ---
spoke with PCU to inform we will verify pt's med list when physician is finished in pt's chart
--- NOTE | 2024-10-02 20:44 | CT_ITS ---
We are attempting to reach an attending provider to discuss findings. An addendum with communication details will be sent when the communication is complete. EXAM: CT HEAD WITHOUT INTRAVENOUS CONTRAST CLINICAL INDICATION: STROKE ALERT TECHNIQUE: Multiple axial images were obtained of the head without intravenous contrast. This CT exam was performed using one or more of the following dose reduction techniques: automated exposure control, adjustment of the mA and/or kV according to patient size, and/or use of iterative reconstruction technique. RADIATION DOSE: CTDIvol = 44.99 mGy, DLP = 863.60 mGy-cm COMPARISON: 11:22 AM today FINDINGS: BRAIN AND EXTRA-AXIAL SPACES: Moderate intracranial arterial calcifications. Mild cerebral volume loss and mild low-attenuation deep periventricular and subcortical white matter changes. Again noted is chronic encephalomalacia in the right cerebellum. No intra- or extra-axial hemorrhage. No evidence of acute infarct. No intracranial mass or mass effect. There is preservation of the dixon/white matter interface. Posterior fossa structures are unremarkable. No hydrocephalus. Basal cisterns are patent. BONES/JOINTS: Unremarkable. No discrete lytic or blastic abnormalities. SINUSES: Unremarkable as visualized. Clear. MASTOID AIR CELLS: Unremarkable. Clear. ORBITS: Visualized globes, extraocular muscles, optic nerves and retrobulbar fat appear unremarkable. OTHER FINDINGS: ASPECTS: 08/12. CT/STROKE Brain/Head without Cont IMPRESSION: No acute findings in the head/brain. Stable from earlier today. Old cerebellar infarct. Electronically Signed: Maria De Jesus Riley MD at 21:11 EST ,
--- NOTE | 2024-10-02 21:13 | PCM.HOSP.N ---
Hospitalist Note Patient noted by family and nursing staff to have worsening right-sided weakness around 8pm. On nursing assessment NIH score was 4. Given these findings, stroke alert was called. I saw the patient in radiology prior to her CT scan. She was alert and oriented and reported ongoing right arm and right leg weakness. CT head was completed and on wet read was negative for new acute pathology. Notably she had a CT head and CTA head/neck earlier today that were negative. On my exam post CT she appeared to be improving. She had normal strength of the right arm with good custodial worker strength. Right leg was weaker than the left but she was able to raise the right leg fully off the bed and hold for 5 seconds before having drift. NIH score down to 1. Discussed over the phone with [facility] neurology who recommended loading patient with aspirin 325 mg and Plavix 300 mg with continued NIH monitoring. Orders placed. MRI brain has been ordered but no timeframe currently on when this will be done. Notably received call from radiology a short time later confirming no acute findings on CT head.
[2024-10-02] MEDS: Aspirin 325 MG Tablet PO (21:51)
[2024-10-02] MEDS: Montelukast 10 MG Tablet PO (21:51)
[2024-10-02] MEDS: Atorvastatin Calcium 40 MG Tablet PO (21:51)
[2024-10-02] MEDS: Clopidogrel Bisulfate 300 MG Tablet PO (21:52)
[2024-10-02 22:55] LABS: Bedside Glucose 111 mg/dL (74-106)
[2024-10-03] VITALS (7 sets, daily range): BP systolic 124–161; BP diastolic 67–79; PULSE 88–107; RESP 16–18; TEMP 36.6–36.8; O2SAT 95–97; BMI 21.6
[2024-10-03] MEDS: Levothyroxine 88 MCG Tablet PO (05:05)
[2024-10-03 08:14] LABS: Cholesterol 187 mg/dL (200); High Density Lipoprotein 57 mg/dL; Triglycerides 66 mg/dL; Very Low Density Lipoprotein 13 mg/dL (5-40)
[2024-10-03] MEDS: Loratadine 10 MG Tablet PO (09:10)
[2024-10-03] MEDS: Aspirin 81 MG TAB.CHEW PO (09:10)
[2024-10-03] MEDS: 0.9% Saline Lock 10 ML Syringe IV (09:11)
--- NOTE | 2024-10-03 09:30 | MRI_ITS ---
We are attempting to reach an attending provider to discuss findings. An addendum with communication details will be sent when the communication is complete. EXAM: MR HEAD WITHOUT INTRAVENOUS CONTRAST CLINICAL INDICATION: cva TECHNIQUE: Multiplanar and multisequence MR images of the brain were obtained without intravenous contrast. COMPARISON: CT brain 10/02/2024 FINDINGS: BRAIN AND EXTRA-AXIAL SPACES: 3 cm focus of restricted diffusion noted along the medial aspect of the left frontal lobe consistent with acute ischemia. No hemorrhage or mass effect. Increased T2 signal intensity within the cerebral white matter suggestive of chronic microvascular change. Ventricles and cortical sulci are prominent in size related to volume loss change commensurate with the patient''s age. SELLA: Normal. Normal sella turcica, pituitary gland, infundibular stalk, optic chiasm and hypothalamus. AUDITORY SYSTEM: Normal. The internal auditory canals are patent. BONES/JOINTS: Intact calvarium. SINUSES: Unremarkable as visualized. Clear. MASTOID AIR CELLS: Clear. ORBITS: Unremarkable as visualized. Both globes, extraocular muscles, optic nerves and retrobulbar fat appear unremarkable. VASCULATURE: Unremarkable as visualized. Normal flow voids in the major intracranial circulation. MRI/Brain without Contrast IMPRESSION: 3 cm focus of restricted diffusion noted along the medial aspect of the left frontal lobe consistent with acute ischemia. Chronic microvascular changes. Electronically Signed: Jose Banks MD at 12:14 EST ,
--- NOTE | 2024-10-03 11:01 | PCM.PN.HOSP ---
Subjective Subjective She had another episode of right-sided weakness last evening's, CT of the brain was obtained at that time which was unremarkable. Currently feeling normal Objective Data Objective Data Vital Signs: Vital Signs Temp Pulse Resp BP Pulse Ox O2 Del Method 97.9 F 99 16 145/79 H 95 Room Air 10/03/24 09:03 10/03/24 09:03 10/03/24 09:03 10/03/24 09:03 10/03/24 09:03 10/03/24 09:17 Oxygen Delivery Method Room Air Weight: 129 lb 10.109 oz Body Mass Index (BMI) 21.6 Intake & Output: Intake and Output for Last 24 Hours 10/02/24 10/03/24 10/04/24 03:59 03:59 03:59 Intake Total 1500 / 1500 Balance 1500 / 1500 Lab / Micro Data 10/02/24 11:15 10/02/24 11:15 Labs: Laboratory Results - last 24 hr 10/02/24 11:15: WBC 9.6, RBC 4.71, Hgb 12.0, Hct 38.1, MCV 80.9 L, MCH 25.5 L, MCHC 31.5 L, RDW Std Deviation 40.7, RDW Coeff of [place] 13.8, Plt Count 415, MPV 9.5, Immature Gran % (Auto) 0.400, Neut % (Auto) 58.1, Lymph % (Auto) 23.6, [place] % (Auto) 15.2 H, Eos % (Auto) 1.9, Baso % (Auto) 0.8, Absolute Neuts (auto) 5.6, Absolute Lymphs (auto) 2.27, Nucleated RBC % 0, PT 12.7, INR 1.0, APTT 25.2, Sodium 134 L, Potassium 4.4, Chloride 99, Carbon Dioxide 29.0, Anion Gap 5, BUN 21 H, Creatinine 0.76, Estim Creat Clear Calc 50.00, Est GFR (MDRD) Af Amer 93, Est GFR (MDRD) Non-Af 77, BUN/Creatinine Ratio 27.7 H, Glucose 121 H, Calcium 9.6, Troponin I High Sens 4 10/02/24 11:18: POC Glucose 125 H 10/02/24 13:16: Urine Color Yellow, Urine Clarity Clear, Urine pH 7.0, Ur Specific [place] 1.005, Urine Protein 15 H, Urine Glucose (UA) Normal, Urine Ketones Negative, Urine Occult Blood Negative, Urine Nitrite Negative, Urine Bilirubin Negative, Urine Urobilinogen Normal, Ur Leukocyte Esterase Negative, Urine RBC 0 SEEN, Urine WBC 0 SEEN, Ur Squamous Epith Cells 0 SEEN, Urine Bacteria 0 SEEN, Urine Mucus 0 SEEN 10/02/24 20:34: POC Glucose 111 H 10/03/24 05:35: Triglycerides 66, Cholesterol 187, LDL Cholesterol 117, VLDL Cholesterol 13, HDL Cholesterol 57 Radiography Diagnostic Testing: Radiology Impression Head/Neck CTA 10/02/24 11:16 IMPRESSION: No evidence of arterial occlusion, significant stenosis, dissection or intracranial aneurysm. Extensive chronic pleural-parenchymal changes of the right upper lobe of the lung Electronically Signed: Jose Banks MD at 12:39 EST , Brain CT 10/02/24 11:20 IMPRESSION: 1. No acute intracranial abnormality. 2. Stable chronic ischemic changes. Aspect score 10. Electronically Signed: Jose Banks MD at 11:32 EST , ADDENDUM: 10/02/24 1143 IMPRESSION: 1. No acute intracranial abnormality. 2. Stable chronic ischemic changes. Aspect score 10. N.B. : The above Results were Read Back by Jose Banks MD to Milly Green DO, and understanding confirmed on 10/02/2024 11:36:06 (ET). Electronically Signed: Jose Banks MD at 11:32 EST , Chest X-Ray 10/02/24 11:50 IMPRESSION: 1. Stable extensive cystic bronchiectatic changes of the right lung associated with pleural parenchymal opacities. 2. Stable bronchiectatic changes of the left lung with focal areas of chronic inflammatory change/scarring. Electronically Signed: Jose Banks MD at 12:48 EST , Brain CT 10/02/24 20:44 IMPRESSION: No acute findings in the head/brain. Stable from earlier today. Old cerebellar infarct. Electronically Signed: Maria De Jesus Riley MD at 21:11 EST , ADDENDUM: 10/02/242122 IMPRESSION: No acute findings in the head/brain. Stable from earlier today. Old cerebellar infarct. N.B. : The above Results were Read Back by Maria De Jesus Riley MD to Leonardo Kitchen DO, and understanding confirmed on 10/02/2024 21:16:48 (ET). Electronically Signed: Maria De Jesus Riley MD at 21:11 EST , ADDENDUM: 10/02/242124 IMPRESSION: No acute findings in the head/brain. Stable from earlier today. Old cerebellar infarct. N.B. : The above Results were Read Back by Maria De Jesus Riley MD to Leonardo Kitchen DO, and understanding confirmed on 10/02/2024 21:18:37 (ET). Electronically Signed: Maria De Jesus Riley MD at 21:11 EST , Physical Exam Narrative General: Alert, Oriented x3, Cooperative, No apparent distress HEENT: Atraumatic, PERRLA, EOMI, Normocephalic Oral: Moist Mucosa Neck: Supple, No JVD Lungs: Diminished, Normal air movement, No rhonchi, No wheeze, No rales Cardiovascular: Regular rate, Regular Rhythm, Normal S1, Normal S2, No murmurs Abdomen: Soft, Non Tender, Non-Distended, No Hepato-splenomegaly Extremities: No edema, Capillary Refill Less than 3 Seconds Skin: No rashes, No breakdown Musculoskeletal: No Tenderness to Palpation of Joints or Extremities Neurological: No focal neurological deficits, Motor Exam 5/5 strength throughout, Sensory exam intact to light touch and pain, NIH of 0 Psych/Mental Status: Flat Assessment & Plan Assessment/Plan (1) TIA (transient ischemic attack): PLAN: Plan 1. TIA versus CVA ?MRI read pending, if positive can proceed with a complete workup with echo ? Will hold her home blood pressure medications for permissive hypertension ? Will start her on aspirin and Lipitor given her age and presenting complaint ? CT from last night was negative 2. Essential HTN ? Stable, her home medications for now ? Will monitor make adjustments as necessary 3. Pulmonary fibrosis ? Continue with her home medications she follows up with the pulmonology clinic as an outpatient DVT: SCDs Charges/Coding Visit Charges Inpatient E&M: 30927 Subs Hosp L2
--- NOTE | 2024-10-03 12:33 | ECHOD_ITS ---
Reason For Study: TIA/CVA Procedure This was a 2D Doppler, Color Flow transthoracic echocardiogram. Exam performed portable in patient room. Left Ventricle Normal LV size. Left ventricular systolic function is hyperdynamic. The estimated ejection fraction is 75 %. No regional wall motion abnormalities noted. Right Ventricle Normal RV size. Normal systolic function. Atria The left and right atria are normal. Bubble contrast study is positive for PFO. Mitral Valve There is no mitral valve stenosis. No mitral valve insufficiency. Tricuspid Valve There is no tricuspid stenosis. Trivial tricuspid valve insufficiency. Pulmonary artery systolic pressure is 35 mmHg. Aortic Valve Trisinus/trileaflet aortic valve. There is no aortic stenosis. No aortic valve insufficiency. Pulmonic Valve There is no pulmonic valvular stenosis. No pulmonic valve insufficiency. Great Vessels Normal aortic root. Pericardium/Pleural No pericardial effusion. Medication Performed a rapid injection of agitated mix of 9 cc saline and 1cc air to assess for atrial septal defect. Bubble attempted X3. MMode/2D Measurements & Calculations RVDd: 2.3 cm LAV(MOD-bp): 17.2 ml LVAd ap4: 12.0 cm2 LAV(MOD-bp) Indexed: 10.2 ml/m2 LVLd ap4: 6.2 cm LAV(MOD-sp2): 17.9 ml EDV(MOD-sp4): 19.0 ml LAV(MOD-sp4): 17.2 ml EDV(sp4-el): 19.7 ml LVAs ap4: 7.2 cm2 LVLs ap4: 5.2 cm ESV(MOD-sp4): 8.0 ml ESV(sp4-el): 8.3 ml EF(MOD-sp4): 57.7 % EF(sp4-el): 57.7 % SV(MOD-sp4): 11.0 ml SV(sp4-el): 11.4 ml LA A4 area: 9.2 cm2 SI(MOD-sp4): 6.5 ml/m2 RA A4 area: 5.6 cm2 Time Measurements MV dec time: 0.16 sec Doppler Measurements & Calculations MV E max alex: 63.4 cm/sec Lat Peak E' Alex: 6.0 cm/sec Med Peak E' Alex: 6.7 cm/sec MV A max alex: 109.7 cm/sec E/E' lat: 10.7 E/E' med: 9.4 MV E/A: 0.58 MV dec slope: 405.9 cm/sec2 Ao V2 max: 116.3 cm/sec LV V1 max: 99.0 cm/sec Ao max P.4 mmHg LV V1 max P.9 mmHg Ao V2 mean: 81.0 cm/sec LV V1 mean P.4 mmHg Ao mean P.0 mmHg LV V1 mean: 74.9 cm/sec Ao V2 VTI: 17.3 cm LV V1 VTI: 17.1 cm AV (velocity ratio): 0.99 TR max alex: 281.0 cm/sec TR max P.6 mmHg ECHO/Echo Complete Interpretation Summary The estimated ejection fraction is 75 %. Bubble contrast study is positive for possibly a tiny PFO. Left ventricular systolic function is hyperdynamic. Ordering Physician: Raul Portillo Referring Physician: MORALES CLIFFORD Performed By: Dorinda Mcintyre and Student
[2024-10-03] MEDS: Atorvastatin Calcium 40 MG Tablet PO (21:01)
[2024-10-03] MEDS: Montelukast 10 MG Tablet PO (21:01)
[2024-10-04] VITALS (7 sets, daily range): BP systolic 116–149; BP diastolic 54–79; PULSE 100–121; RESP 12–20; TEMP 36.1–36.7; O2SAT 95–97; BMI 21.6
[2024-10-04] MEDS: Levothyroxine 88 MCG Tablet PO (05:00)
[2024-10-04 06:04] LABS: Absolute Lymphocyte Count 1.48 X10^3/uL (0.83-4.51); Absolute Neutrophil Count 4.5 X10^3/uL (2.0-7.7); Basophil# 0.08 X10^3/uL; Basophil% 1.1 % (0-1); Eosinophil# 0.23 X10^3/uL; Eosinophils% 3.1 % (0-5); Hematocrit 39.5 % (37-47); Hemoglobin 12.6 g/dL (12.0-15.0); Lymphocyte # 1.48 X10^3/ul (0.83-4.51); Lymphocyte % 19.7 % (19-41); Mean Corp Hgb Conc 31.9 g/dL (32-36); Mean Corpuscular Hgb 25.7 pg (27.0-32.0); Mean Corpuscular Volume 80.6 fL (81-99); Mean Platelet Vol. 9.6 fl (6.2-12.0); NRBC Flagged by Analyzer 0 % (0-5); Neutrophil % 59.7 % (47-70); Platelet Count 400 K/mm3 (150-450); RBC Distribution Width SD 40.9 fl (35.1-43.9); White Blood Count 7.5 K/mm3 (4.4-11.0)
[2024-10-04 06:25] LABS: Anion Gap 7 (5-15); BUN 18 mg/dL (7-18); BUN/Creat Ratio 27.5 RATIO (10-20); Calcium,Total 9.6 mg/dL (8.5-10.1); Chloride 100 mmol/L (98-107); Creatinine, Serum 0.65 mg/dL (0.55-1.02); EST Glomerular Filtration Rate 91 mL/min (>60); Est Glom Filt Rate - Afr Amer 110 mL/min (>60); Estimated Creatinine Clearance 47.72 ml/min; Glucose 99 mg/dL (74-106); Sodium Level 134 mmol/L (136-145)
[2024-10-04] MEDS: Aspirin 81 MG TAB.CHEW PO (10:24)
[2024-10-04] MEDS: Loratadine 10 MG Tablet PO (10:24)
--- NOTE | 2024-10-04 11:00 | CASEMGMT ---
RN CM Face to Face with patient for initial transition planning/care coordination assessment. RN CM introduced self and role at [facility]. Patient lying in bed, alert and oriented, at bedside. Patient willing to participate in assessment and is able to answer all questions appropriately. Care providers, pharmacy, and demographics verified. Strata: 2 PCP: Oziel ADVERTISING ACCOUNT EXECUTIVE Specialists: Angélica Sanchez railroad hand Preferred Pharmacy: [facility]; [facility] Retail at discharge. Insurance: self pay Prescription Benefit: none Living Will/HPOA: yes, Alistair Posadas LNOK: , son Living Arrangements: Patient lives with in a 2 story home with bed and bath on first floor. Patient is independent at home. Transportation: self, DME/HHC: Patient has shower chair, grab bars, walker , wheelchair at home. Patient has had [facility] HHC in the past. No previous SNF Patient wishes to discharge home, denies need for home health at this time, therapy pending, will monitor . Patient states she has no further needs or concerns at this time. CM to follow for discharge planning needs that may arise. Disposition Plan: Patient to discharge home with family support and follow-up plans in place. Will monitor progress with therapy Ebonie CARDENAS, RN, CM
--- NOTE | 2024-10-04 12:52 | PCM.PN.HOSP ---
Reason for Visit Reason for Visit: Diagnoses Transient cerebral ischemic attack, unspecified (10/03/24) Subjective Subjective Patient is an 83-year-old lady who presented with left-sided weakness MRI obtained did show findings consistent with acute CVA Objective Data Objective Data Vital Signs: Vital Signs Temp Pulse Resp BP Pulse Ox O2 Del Method 97.4 F L 109 H 12 116/71 96 Room Air 10/04/24 08:06 10/04/24 08:06 10/04/24 08:06 10/04/24 08:06 10/04/24 08:06 10/04/24 08:06 Oxygen Delivery Method Room Air Weight: 58.8 kg Body Mass Index (BMI) 21.6 Intake & Output: Intake and Output for Last 24 Hours 10/02/24 10/03/24 10/04/24 23:59 23:59 23:59 Intake Total 1500 / 1500 500 / 500 Output Total 700 / 700 700 / 700 Balance 1500 / 1500 -200 / -200 -700 / -700 Lab / Micro Data 10/04/24 05:20 10/04/24 05:20 Labs: Laboratory Results - last 24 hr 10/04/24 05:20: WBC 7.5, RBC 4.90, Hgb 12.6, Hct 39.5, MCV 80.6 L, MCH 25.7 L, MCHC 31.9 L, RDW Std Deviation 40.9, RDW Coeff of [place] 14.0, Plt Count 400, MPV 9.6, Immature Gran % (Auto) 0.400, Neut % (Auto) 59.7, Lymph % (Auto) 19.7, [place] % (Auto) 16.0 H, Eos % (Auto) 3.1, Baso % (Auto) 1.1 H, Absolute Neuts (auto) 4.5, Absolute Lymphs (auto) 1.48, Nucleated RBC % 0, Sodium 134 L, Potassium 4.0, Chloride 100, Carbon Dioxide 27.0, Anion Gap 7, BUN 18, Creatinine 0.65, Estim Creat Clear Calc 47.72, Est GFR (MDRD) Af Amer 110, Est GFR (MDRD) Non-Af 91, BUN/Creatinine Ratio 27.5 H, Glucose 99, Calcium 9.6 Physical Exam Narrative GENERAL: cooperative HEENT: Atraumatic; normocephalic EYES; Anicteric, Normal Conjunctiva NECK; supple, normal thyroid, RESPIRATORY: Diminished to auscultation CARDIOVASCULAR: Regular S1 S2, GI: soft, normoactive bowel sounds, : No Renal angle tenderness; EXTREMITIES: No edema, no clubbing, MUSCULOSKELETAL: no muscle wasting NEURO: Awake; no lateralizing signs. SKIN: No Rash PSYCH; Flat affect Assessment & Plan Assessment/Plan (1) TIA (transient ischemic attack): (2) CVA (cerebral vascular accident): PLAN: Plan Patient is an 83-year-old lady who presented with left-sided weakness MRI obtained did show findings consistent with acute CVA 1. Acute CVA MRI obtained did show 3 cm focus of restricted diffusion noted along the medial aspect of the left frontal lobe consistent with acute ischemia. Admitted to monitored bed managed per protocol with every 4 neurochecks, 2D echo, CT angio antiplatelet therapy and statin therapy with consultation placed to teleneuro ? [facility] recommended transthoracic echo, 30-day cardiac event monitor aspirin 81 mg indefinitely clopidogrel 300 mg load and 75 mg daily for 21 days ? 2D echo obtained did show The estimated ejection fraction is 75 %. Bubble contrast study is positive for possibly a tiny PFO. Left ventricular systolic function is hyperdynamic. 2. Essential hypertension ? Given patient presentation will allow for permissive hypertension 3. Pulmonary fibrosis ? Patient is followed by pulmonology as outpatient 4. Hypothyroidism ? Patient is on levothyroxine home dose continued 5.Chronic hyponatremia ? Patient is on sodium tablet 6. DVT prophylaxis ? On enoxaparin Time spent in the patient's overall evaluation,decision-making process, review of diagnostic data, adjustment of management, discussion with other providers, nursing nursing and ancillary staff involved in patient's care documentation, 38 Minutes Charges/Coding Visit Charges Inpatient E&M: 85459 Subs Hosp L2
--- NOTE | 2024-10-04 13:26 | CON.PCM.NE_ITS ---
Assessment and Plan: Stroke Assessment/Plan MARILU SANDY is a 83 F with a history of hypertension, pulmonary hypertension who presents for evaluation of acute RLE>RUE weakness. MRI w/ L LE stroke which correlates with symptoms. CTA w/ stenosis of L LE, suspect possible embolus given risk factors are not horibbly uncontrolled, thus stroke etiology cryptogenic. Recommend TTE and 30 day registered nurse cardiac on discharge. Recommend aspirin 81mg indefinitely. Additionally recommend clopidogrel 300mg load and continue clopidogrel 75mg daily for 21 days then stop. Start atorvastatin 40mg daily. Goal BP <140/80. Obtain hemoglobin A1c. PT/OT assessment. HPI Consult Data Date of Consult: 10/04/24 HPI Narrative HPI Narrative: MARILU SANDY, is a 83 F with a history of hypertension, pulmonary hypertension who presents for evaluation of acute RLE>RUE weakness. Awoke 10/02/24 w/ RLE weakness. Initially went to bathroom and noticed difficulty getting off the toilet. Symptoms initially worsened over first 12 hours but have since improved. Also mild RUE weakness. [facility] Medical History Anemia Adverse drug reaction Respiratory insufficiency Hypothyroidism Sinus tachycardia seen on registered nurse cardiac Hypertension Acute hyponatremia Hypoxia Pulmonary fibrosis Right lower lobe pneumonia Pulmonary fibrosis Home Medications ?Medication ?Instructions ?Recorded ?Last Taken ?Type levothyroxine 88 mcg capsule 88 mcg PO DAILY thyroid 05/23/23 Unknown History metoprolol tartrate 25 mg tablet 25 mg PO BID heart #60 tabs 03/16/24 Unknown Rx ondansetron 4 mg disintegrating 4 mg PO Q8H PRN PRN Nausea #10 tabs 06/03/24 Unknown Rx tablet loratadine 10 mg tablet 10 mg PO DAILY #90 tabs 07/14/24 Unknown Rx montelukast 10 mg tablet 10 mg PO QPM #90 tabs 07/14/24 Unknown Rx amlodipine 2.5 mg tablet 2.5 mg PO DAILY 10/02/24 Unknown History losartan 25 mg tablet 25 mg PO DAILY 10/02/24 Unknown History sodium chloride 1,000 mg soluble 1,000 mg PO TID 10/02/24 Unknown History tablet Allergy/AdvReac Type Severity Reaction Status Date / Time Sulfa (Sulfonamide Allergy PT UNSURE Verified 10/02/24 11:05 Antibiotics) OF REACTION hydrochlorothiazide AdvReac Unknown Other Verified 10/02/24 11:05 Family History Sister Asthma Surgical History no surgical history Social History Smoking Status: Never smoker Vital Signs Vital Signs Vital Signs: 10/03/24 17:00 10/03/24 21:00 10/04/24 01:00 Temperature 98.3 F 97.8 F 97.8 F Temperature Source Oral Temporal Temporal Pulse Rate 107 H 102 H 104 H Respiratory Rate 16 16 16 Blood Pressure 148/75 H 124/67 H 137/54 H Blood Pressure Mean 99 86 81 Blood Pressure Source Monitor Monitor Blood Pressure Position Semi-Fowlers Semi-Fowlers Blood Pressure Location Left Arm Right Arm Pulse Ox 95 95 96 Oxygen Delivery Method Room Air Room Air Room Air 10/04/24 05:00 10/04/24 07:00 10/04/24 08:06 Temperature 98.1 F 97.4 F L Temperature Source Oral Temporal Pulse Rate 100 109 H Respiratory Rate 16 12 Blood Pressure 136/75 H 116/71 Blood Pressure Mean 95 86 Blood Pressure Source Monitor Monitor Blood Pressure Position Semi-Fowlers Sitting Blood Pressure Location Right Arm Left Arm Pulse Ox 97 95 96 Oxygen Delivery Method Room Air Room Air Room Air Weight Weight: 58.8 kg Body Mass Index (BMI) 21.6 EEG Results Procedure Details EEG Procedure Details: MARILU SANDY is a 83 year old F with a past medical history of , who presents for evaluation of Electroencephalogram on DATE at TIME NIHSS NIHSS Nursing Documentation NIHSS Nursing Documentation: NIHSS: Ischemic Stroke/TIA Start: 10/02/24 13:34 Text: For PCU Patients: NIH and Neuro Check every 4 Status: Active hours, PRN and with change in RN caregiver. Freq: [id number] Protocol: Activity Type Activity Date Activity User E-sign Co-sign Detail Recorded Client Recorded Date Recorded By Document 10/04/24 10:00 NB [id number] 10/04/24 11:36 NB 10/04/24 10:00 NIH Stroke Scale [NIHSS] A score of 0 is normal or asymptomatic . Total possible score is 42. Inpatient: RN or Physician to activate a stroke alert for onset of new stroke symptoms or with NIHSS increase >/= 3 points. Following change in neurological status, NIHSS will be performed per physician order or more frequently PRN. -1a. Level of Consciousness Alert; keenly responsive -1b. LOC Questions Answers BOTH questions correctly. -1c. LOC Commands Performs both tasks correctly . -2. Best Gaze Normal -3. Visual No visual loss -4. Facial Palsy Normal symmetrical movements -5a. Left Arm No drift; arm holds 90 (or 45 ) degrees for full 10 seconds -5b. Right Arm No drift; arm holds 90 (or 45 ) degrees for full 10 seconds -6a. Left Leg No drift; leg holds 30-degree position for full 5 seconds -6b. Right Leg No drift; leg holds 30-degree position for full 5 seconds -7. Limb Ataxia Absent -8. Sensory Normal; no sensory loss -9. Best Language No aphasia; normal -10. Dysarthria Normal -11. Extinction and Inattention No abnormality -Total 0 Query Text:A score of 0 is normal or asymptomatic. Total possible score is 42 . ED: Notify Physician for NIHSS increase by > / = 3 points. Inpatient: RN or Physician to activate a stroke alert for NIHSS increase of > / = 3 points. Coma Scale [Assess] -Eye Opening Spontaneous -Motor Obeys Commands -Verbal Oriented [Total] -Coma Scale Total 15 NIHSS 1a. Level of Consciousness: Alert; keenly responsive 1b. LOC Questions: Answers BOTH questions correctly. 1c. LOC Commands: Performs both tasks correctly. 2. Best Gaze: Normal 3. Visual: No visual loss 4. Facial Palsy: Normal symmetrical movements 5a. Left Arm: No drift; arm holds 90 (or 45) degrees for full 10 seconds 5b. Right Arm: No drift; arm holds 90 (or 45) degrees for full 10 seconds 6a. Left Leg: No drift; leg holds 30-degree position for full 5 seconds 6b. Right Leg: No drift; leg holds 30-degree position for full 5 seconds 7. Limb Ataxia: Present in 1 limb 8. Sensory: Normal; no sensory loss 9. Best Language: No aphasia; normal 10. Dysarthria: Normal 11. Extinction and Inattention: No abnormality Total: 1 (Neurological examination shows decreased finger tapping on L hand. Slightly more difficult heel to randhawa with the right leg than the left.) Lab / Micro Data 10/04/24 05:20 10/04/24 05:20 Labs: Laboratory Results - last 24 hr 10/04/24 05:20: WBC 7.5, RBC 4.90, Hgb 12.6, Hct 39.5, MCV 80.6 L, MCH 25.7 L, M CHC 31.9 L, RDW Std Deviation 40.9, RDW Coeff of [place] 14.0, Plt Count 400, MPV 9.6, Immature Gran % (Auto) 0.400, Neut % (Auto) 59.7, Lymph % (Auto) 19.7, [place] % (Auto) 16.0 H, Eos % (Auto) 3.1, Baso % (Auto) 1.1 H, Absolute Neuts (auto) 4.5, Absolute Lymphs (auto) 1.48, Nucleated RBC % 0, Sodium 134 L, Potassium 4.0, Chloride 100, Carbon Dioxide 27.0, Anion Gap 7, BUN 18, Creatinine 0.65, Estim Creat Clear Calc 47.72, Est GFR (MDRD) Af Amer 110, Est GFR (MDRD) Non-Af 91, BUN/Creatinine Ratio 27.5 H, Glucose 99, Calcium 9.6 Active Medications Active Medications Active Medications: Current Medications Generic Name Dose Route Start Last Admin Trade Name Freq PRN Reason Stop Dose Admin Aspirin 81 mg 10/03/24 08:00 10/04/24 10:24 Aspirin 81 Mg Tab.Chew PO 81 mg BREAKFAST SARAH Administration Atorvastatin Calcium 40 mg 10/02/24 22:00 10/03/24 21:01 Atorvastatin Calcium 40 Mg Tablet PO 40 mg QHS SARAH Administration Enoxaparin Sodium 40 mg 10/05/24 10:00 Enoxaparin 40 Mg/0.4 Ml Syringe SC DAILY SARAH Sodium Chloride 500 mls @ 15 mls/hr 10/02/24 13:37 IV .[id number] PRN Saline Flush Sodium Chloride 500 mls @ 15 mls/hr 10/02/24 13:37 IV .[id number] PRN Additional IVPB Infusion Levothyroxine Sodium 88 mcg 10/03/24 06:00 10/04/24 05:00 Levothyroxine 88 Mcg Tablet PO 88 mcg DAILY@0600 SARAH Administration Loratadine 10 mg 10/03/24 10:00 10/04/24 10:24 Loratadine 10 Mg Tablet PO 10 mg DAILY SARAH Administration Montelukast Sodium 10 mg 10/02/24 21:00 10/03/24 21:01 Montelukast 10 Mg Tablet PO 10 mg QPM SARAH Administration Sodium Chloride 10 - 40 ml 10/02/24 13:37 10/03/24 09:11 0.9% Saline Lock 10 Ml Syringe IV 10 ml UD PRN Administration SALINE FLUSH
--- NOTE | 2024-10-04 14:02 | CASEMGMT ---
Addendum entered by Ebonie Arboleda 10/04/24 15:18: BILL WHITE in to follow-up with patient and . Patient and state they would like [facility] Acute rehab, declined list for [facility]. Patient and had no further questions or concerns. BILL WHITE updated SW. CM will continue to follow this patient and plan for a safe discharge. Original Note: BILL WHITE updated by therapy that patient would benefit from acute rehab at discharge. BILL WHITE in to discuss therapy recommendation with patient, at bedside. BILL WHITE reviewed different levels of care including acute rehab, SNF, HHC, and outpatient therapy. Patient and would like to discuss recommendations and have CM follow-up with them in an hour. CM will continue to follow this patient and plan for a safe discharge.
--- NOTE | 2024-10-04 14:26 | DS.PCM_ITS ---
Providers Date of Admission: 10/03/24 Date of Discharge: 10/04/24 Primary Care Physician: JETT David Consultations 10/03/24 12:33 Neurology [Consult: Tele-Neurology] Routine Consulting Provider: [facility] Reason for Consult: CVA EMERGENT Consult: No MD Notified: Yes Date Notified: 10/03/24 Time Notified: 12:48 Method of Notification: Answering Service Nursing Unit Staff Notify [facility] of Tele-Neurology Consult: Yes Reason For Visit: TIA Diagnosis Discharge Diagnosis (1) TIA (transient ischemic attack): Status: Acute Code(s): G45.9 - Transient cerebral ischemic attack, unspecified Plan Patient is an 83-year-old lady who presented with left-sided weakness MRI obtained did show findings consistent with acute CVA 1. Acute CVA MRI obtained did show 3 cm focus of restricted diffusion noted along the medial aspect of the left frontal lobe consistent with acute ischemia. Admitted to monitored bed managed per protocol with every 4 neurochecks, 2D echo, CT angio antiplatelet therapy and statin therapy with consultation placed to teleneuro ? [facility] recommended transthoracic echo, 30-day cardiac event monitor aspirin 81 mg indefinitely clopidogrel 300 mg load and 75 mg daily for 21 days ? 2D echo obtained did show The estimated ejection fraction is 75 %. Bubble contrast study is positive for possibly a tiny PFO. Left ventricular systolic function is hyperdynamic. 2. Essential hypertension ? Given patient presentation will allow for permissive hypertension 3. Pulmonary fibrosis ? Patient is followed by pulmonology as outpatient 4. Hypothyroidism ? Patient is on levothyroxine home dose continued 5.Chronic hyponatremia ? Patient is on sodium tablet 6. DVT prophylaxis ? On enoxaparin Medications at Discharge Home Medications levothyroxine 88 mcg capsule 88 mcg PO DAILY thyroid 05/23/23 metoprolol tartrate 25 mg tablet 25 mg PO BID heart #60 tabs 03/16/24 ondansetron 4 mg disintegrating tablet 4 mg PO Q8H PRN PRN Nausea #10 tabs 06/03/24 loratadine 10 mg tablet 10 mg PO DAILY #90 tabs 07/14/24 montelukast 10 mg tablet 10 mg PO QPM #90 tabs 07/14/24 losartan 25 mg tablet 25 mg PO DAILY 10/02/24 sodium chloride 1,000 mg soluble tablet 1,000 mg PO TID 10/02/24 aspirin 81 mg chewable tablet 81 mg PO BREAKFAST #90 tabs 10/04/24 atorvastatin 40 mg tablet 40 mg PO QHS #90 tabs 10/04/24 clopidogrel 75 mg tablet 75 mg PO DAILY #21 tabs 10/04/24 Hospital Course Summary of Care Provided Minutes Spent on Discharge: 32 Physical Exam Narrative GENERAL: cooperative HEENT: Atraumatic; normocephalic EYES; Anicteric, Normal Conjunctiva NECK; supple, normal thyroid, RESPIRATORY: Diminished to auscultation CARDIOVASCULAR: Regular S1 S2, GI: soft, normoactive bowel sounds, : No Renal angle tenderness; EXTREMITIES: No edema, no clubbing, MUSCULOSKELETAL: no muscle wasting NEURO: Awake; no lateralizing signs. SKIN: No Rash PSYCH; Flat affect Weight / BMI Weight Weight: 58.8 kg Body Mass Index (BMI) 21.6 ABG / Lab / Microbiology Data 10/04/24 05:20 10/04/24 05:20 Laboratory: Laboratory Results - last 24 hr 10/04/24 05:20: WBC 7.5, RBC 4.90, Hgb 12.6, Hct 39.5, MCV 80.6 L, MCH 25.7 L, M CHC 31.9 L, RDW Std Deviation 40.9, RDW Coeff of [place] 14.0, Plt Count 400, MPV 9.6, Immature Gran % (Auto) 0.400, Neut % (Auto) 59.7, Lymph % (Auto) 19.7, [place] % (Auto) 16.0 H, Eos % (Auto) 3.1, Baso % (Auto) 1.1 H, Absolute Neuts (auto) 4.5, Absolute Lymphs (auto) 1.48, Nucleated RBC % 0, Sodium 134 L, Potassium 4.0, Chloride 100, Carbon Dioxide 27.0, Anion Gap 7, BUN 18, Creatinine 0.65, Estim Creat Clear Calc 47.72, Est GFR (MDRD) Af Amer 110, Est GFR (MDRD) Non-Af 91, BUN/Creatinine Ratio 27.5 H, Glucose 99, Calcium 9.6 Radiography Diagnostic Testing: Radiology Impression Echocardiogram 10/03/24 12:33 Interpretation Summary The estimated ejection fraction is 75 %. Bubble contrast study is positive for possibly a tiny PFO. Left ventricular systolic function is hyperdynamic. Ordering Physician: Raul Portillo Referring Physician: MORALES CLIFFORD Performed By: Dorinda Mcintyre and Student D/C Instructions Discharge Diet: No restrictions Discharge Activity: Return to Normal Activity Call your doctor if you observe: Fever of 101 or Higher, Shortness of breath, Fainting spells and Chest pain DC O2, CPAP, BIPAP Needs Additional Home O2 Discharge instructions: No DC home with Oxygen: No Meaningful Use Info Meaningful Use Meaningful Use Diagnoses (Choose all that apply): Ischemic CVA CVA Therapy Assessed for PT,OT and/or ST?: Yes Ischemic Stroke Antithrombotic order at d/c?: Yes Dx of Atrial fib/flutter?: No Statin Dosing Therapy Reference: STATIN DOSE THERAPY REFERENCE: * Patients > 75 years receive moderate or high dose statin therapy. * Patients 75 years or YOUNGER should receive HIGH intensity statin dose unless contraindicated. You will be required to document reason for non-treatment if statin daily dose does not meet guidelines. HIGH DOSE STATIN THERAPY DAILY Atorvastatin > than or = to 40 mg Rosuvastatin > than or = to 20 mg Amlodipine + Atorvastatin > than or = to 2.5/40 mg Ezetimibe + Simvastatin 10/80 mg Simvastatin 80mg Statins at discharge?: Yes Primary Dx Acute Ischemic CVA?: Yes IV thrombolytic ordered during stay?: No Reason IV thrombolytic not ordered: Treatment not Indicated Discharge Plan Admission Admit Date/Time: 10/03/24 15:39 Attending Provider: Mauricio Arias Primary Care Provider: Morales Clifford NP Consulting Providers: Juan J Sosa; Scottie Cintron; Ángela Traore; Mandy Patten; Tata Ballard; Darell Negron; Soraya Sawyer; Reese Henderson; Harshad Perez; Nathaniel Robert; Giovanna Jarrell; Scot James; Leila Renee; Erica Johnson; Meera Ambrose; Ramiro Olsen; Malcolm Hurtado; Jossue Bryant; Nikki Wheat; Kendra England; Raul Portillo Discharge Orders/Prescriptions Prescriptions: New atorvastatin 40 mg Tablet 40 mg PO QHS Qty: 90 0RF clopidogrel 75 mg Tablet 75 mg PO DAILY Qty: 21 0RF aspirin 81 mg Tablet,Chewable 81 mg PO BREAKFAST Qty: 90 0RF Continued levothyroxine 88 mcg capsule 88 mcg PO DAILY montelukast 10 mg tablet 10 mg PO QPM Qty: 90 3RF loratadine 10 mg tablet 10 mg PO DAILY Qty: 90 3RF metoprolol tartrate 25 mg tablet 25 mg PO BID Qty: 60 2RF losartan 25 mg tablet 25 mg PO DAILY sodium chloride 1,000 mg tablet,soluble 1,000 mg PO TID ondansetron 4 mg tablet,disintegrating 4 mg PO Q8H PRN PRN (Reason: Nausea) Qty: 10 0RF Discontinued amlodipine 2.5 mg tablet 2.5 mg PO DAILY Other Ambulatory Orders: 30 Day Event Recorder Preventi (Urgent) Timeframe: 1 Day Facility: [facility] - Location: Cardiovascular Services Ordered By: Dr. Mauricio Arias Referrals / Follow Up: Morales Clifford NP, MA[employer]ER[employer] [Primary Care Provider] - Within 1 Week Disposition Disposition (needs filled in before D/C Order can be placed): Home, Self Care Charges/Coding Visit Charges Inpatient E&M: 24893 Disch Hosp >30min
[2024-10-04] MEDS: Clopidogrel Bisulfate 300 MG Tablet PO (16:43)
[2024-10-04] MEDS: Atorvastatin Calcium 40 MG Tablet PO (20:57)
[2024-10-04] MEDS: Montelukast 10 MG Tablet PO (20:57)
[2024-10-04] MEDS: Metoprolol Tartrate 25 MG Tablet PO (20:58)
[2024-10-04] MEDS: Sodium Chloride 1 GM Tablet PO (20:59)
[2024-10-05 03:57] VITALS: BP 124/69; PULSE 93; RESP 18; TEMP 35.9; O2SAT 96
[2024-10-05] MEDS: Sodium Chloride 1 GM Tablet PO ×2 (05:38→14:48)
[2024-10-05] MEDS: Levothyroxine 88 MCG Tablet PO (05:38)
[2024-10-05 10:15] VITALS: BP 107/55; PULSE 101; RESP 12; TEMP 36.4; O2SAT 97
--- NOTE | 2024-10-05 10:22 | CASEMGMT ---
SW met with patient's and daughter. SW let them know that the physician in the Rehab Unit is reviewing patient now. Patient has to be accepted by this physician. SW also gave them information on Acute Rehab regarding visitation etc. SW gave them the private pay cost for Rehab and what is due up front. They asked if there is a discount for paying up front. SW told them SW will ask. Awaiting Rehab physicians response. Sydnie Walls BRUSHER DEMARCUS
[2024-10-05 10:33] VITALS: BP 107/55; PULSE 101
[2024-10-05] MEDS: Loratadine 10 MG Tablet PO (10:33)
[2024-10-05] MEDS: Clopidogrel Bisulfate 75 MG Tablet PO (10:33)
[2024-10-05] MEDS: Metoprolol Tartrate 25 MG Tablet PO (10:33)
[2024-10-05] MEDS: Aspirin 81 MG TAB.CHEW PO (10:33)
--- NOTE | 2024-10-05 10:38 | PCM.PN.HOSP ---
Reason for Visit Reason for Visit: Diagnoses Transient cerebral ischemic attack, unspecified (10/03/24) Subjective Subjective Plan was for patient to have been discharged home the day prior however family had a change in plans and requested for transfer to the inpatient rehab unit Objective Data Objective Data Vital Signs: Vital Signs Temp Pulse Resp BP Pulse Ox O2 Del Method 97.6 F L 101 H 12 107/55 L 97 Room Air 10/05/24 10:15 10/05/24 10:33 10/05/24 10:15 10/05/24 10:33 10/05/24 10:15 10/05/24 10:15 Oxygen Delivery Method Room Air Weight: 58.8 kg Body Mass Index (BMI) 21.6 Intake & Output: Intake and Output for Last 24 Hours 10/03/24 10/04/24 10/05/24 23:59 23:59 23:59 Intake Total 500 / 500 250 / 250 Output Total 700 / 700 1700 / 1700 200 / 200 Balance -200 / -200 -1450 / -1450 -200 / -200 Lab / Micro Data 10/04/24 05:20 10/04/24 05:20 Radiography Diagnostic Testing: Radiology Impression Echocardiogram 10/03/24 12:33 Interpretation Summary The estimated ejection fraction is 75 %. Bubble contrast study is positive for possibly a tiny PFO. Left ventricular systolic function is hyperdynamic. Ordering Physician: Raul Portillo Referring Physician: MORALES CLIFFORD Performed By: Dorinda Mcintyre and Student Physical Exam Narrative GENERAL: cooperative HEENT: Atraumatic; normocephalic EYES; Anicteric, Normal Conjunctiva NECK; supple, normal thyroid, RESPIRATORY: Diminished to auscultation CARDIOVASCULAR: Regular S1 S2, GI: soft, normoactive bowel sounds, : No Renal angle tenderness; EXTREMITIES: No edema, no clubbing, MUSCULOSKELETAL: no muscle wasting NEURO: Awake; no lateralizing signs. SKIN: No Rash PSYCH; Flat affect Assessment & Plan Assessment/Plan (1) TIA (transient ischemic attack): (2) CVA (cerebral vascular accident): PLAN: Plan Patient is an 83-year-old lady who presented with left-sided weakness MRI obtained did show findings consistent with acute CVA 1. Acute CVA MRI obtained did show 3 cm focus of restricted diffusion noted along the medial aspect of the left frontal lobe consistent with acute ischemia. Admitted to monitored bed managed per protocol with every 4 neurochecks, 2D echo, CT angio antiplatelet therapy and statin therapy with consultation placed to teleneuro ? [facility] recommended transthoracic echo, 30-day cardiac event monitor aspirin 81 mg indefinitely clopidogrel 300 mg load and 75 mg daily for 21 days ? 2D echo obtained did show T estimated ejection fraction is 75 %. Bubble contrast study is positive for possibly a tiny PFO. Left ventricular systolic function is hyperdynamic. ? 10/05/2024;Plan was for patient to have been discharged home the day prior however family had a change in plans and requested for transfer to the inpatient rehab unit 2. Essential hypertension ? Given patient presentation will allow for permissive hypertension ? 10/05/2024 resume patient antihypertensives metoprolol. Held losartan given relatively low blood pressure and discontinued amlodipine 3. Pulmonary fibrosis ? Patient is followed by pulmonology as outpatient 4. Hypothyroidism ? Patient is on levothyroxine home dose continued 5.Chronic hyponatremia ? Patient is on sodium tablet ? 10/05/2020 resumed patient sodium tablets 6. DVT prophylaxis ? On enoxaparin Time spent in the patient's overall evaluation,decision-making process, review of diagnostic data, adjustment of management, discussion with other providers, nursing nursing and ancillary staff involved in patient's care documentation, 38 Minutes Charges/Coding Visit Charges Inpatient E&M: 95823 Subs Hosp L2
--- NOTE | 2024-10-05 12:24 | CASEMGMT ---
JULIANNA spoke with patient and her family and they have decided to pay the 7 days up front for The Rehab Unit at [facility]. JULIANNA did provide patient's family with visitation information. JULIANNA explained once patient gets over to the Rehab Unit they will need to go to the cardiology clinical consultant's office and pay the 7 days. They thanked JULIANNA for the assistance. Plan: d/c to [facility] Acute Rehab Unit Sydnie TRACY
[2024-10-05 15:35] VITALS: BP 108/64; PULSE 88; RESP 16; TEMP 36.7; O2SAT 98
--- NOTE | 2024-10-05 15:49 | NURSING ---
Report called to BILL Ventura on inpt rehab at this time.
[2024-10-05 16:00] VITALS: BMI 21.6
--- NOTE | 2024-10-05 16:40 | PHA.DC.MR.R ---
Pharmacy CT Med Reconciliation Pharmacy Service has performed discharge medication reconciliation for this patient. The patient's discharge medication list was reviewed for discrepancies and discrepancies were resolved. Medications at Discharge Home Medications levothyroxine 88 mcg capsule 88 mcg PO DAILY thyroid 05/23/23 metoprolol tartrate 25 mg tablet 25 mg PO BID heart #60 tabs 03/16/24 ondansetron 4 mg disintegrating tablet 4 mg PO Q8H PRN PRN Nausea #10 tabs 06/03/24 loratadine 10 mg tablet 10 mg PO DAILY #90 tabs 07/14/24 montelukast 10 mg tablet 10 mg PO QPM #90 tabs 07/14/24 losartan 25 mg tablet 25 mg PO DAILY 10/02/24 sodium chloride 1,000 mg soluble tablet 1,000 mg PO TID 10/02/24 aspirin 81 mg chewable tablet 81 mg PO BREAKFAST #90 tabs 10/04/24 atorvastatin 40 mg tablet 40 mg PO QHS #90 tabs 10/04/24 clopidogrel 75 mg tablet 75 mg PO DAILY #21 tabs 10/04/24
== END 2024-10-05 16:47 | DRG 65 ==
LOC: ED 13:05 → PCU 13:26
PROVIDERS: Admitting Provider Family Medicine; Emergency Provider Emergency Medicine; PCP Nurse Practitioner Primary Care; Visit Provider Internal Medicine
DX: I63.89 Other cerebral infarction (principal); E87.1 Hypo-osmolality and hyponatremia; G81.91 Hemiplegia, unspecified affecting right dominant side; Q21.12 Patent foramen ovale; I27.20 Pulmonary hypertension, unspecified; I10 Essential (primary) hypertension; E03.9 Hypothyroidism, unspecified; J84.10 Pulmonary fibrosis, unspecified; R29.704 NIHSS score 4; R29.700 NIHSS score 0; R47.9 Unspecified speech disturbances; Z79.890 Hormone replacement therapy; Z79.899 Other long term (current) drug therapy; Z86.73 Personal history of transient ischemic attack (TIA), and cerebral infarction without residual deficits
CPT/HCPCS: 36415; 70450; 70496; 70498; 70551; 71045; 80048; 80061; 81001; 82962; 84484; 85025; 85610; 85730; 93005; 93306; 94762; 97110; 97162; 97166; 97530; 97535; 99285; J7030; Q9967; A4216

== ENCOUNTER 2024-10-05 17:05 | Inpatient (IN) | payer SELFPAY ==
[2024-10-05 17:39] VITALS: BP 127/64; PULSE 90; RESP 18; TEMP 35.7; O2SAT 94
[2024-10-05 17:52] VITALS: BP 127/64; PULSE 90; RESP 18; TEMP 35.7; O2SAT 94
[2024-10-05 20:00] VITALS: BMI 20.4
[2024-10-05] MEDS: Sodium Chloride 1 GM Tablet PO (20:57)
[2024-10-05] MEDS: Senna/Docusate Sodium 1 Tablet 2 TABLET PO (20:57)
[2024-10-05] MEDS: Montelukast 10 MG Tablet PO (20:58)
[2024-10-05 20:59] VITALS: BP 143/69; PULSE 95
[2024-10-05] MEDS: Metoprolol Tartrate 25 MG Tablet PO (20:59)
[2024-10-05] MEDS: Atorvastatin Calcium 40 MG Tablet PO (20:59)
[2024-10-05 21:21] VITALS: BMI 20.4
[2024-10-06] MEDS: Levothyroxine 88 MCG Tablet PO (05:08)
[2024-10-06] MEDS: Sodium Chloride 1 GM Tablet PO ×3 (05:08→21:26)
[2024-10-06 05:20] VITALS: BP 147/74; PULSE 88; RESP 16; TEMP 36.9; O2SAT 96
[2024-10-06 07:33] LABS: Absolute Neutrophil Count 5.3 X10^3/uL (2.0-7.7); Basophil# 0.12 X10^3/uL; Basophil% 1.3 % (0-1); Eosinophil# 0.32 X10^3/uL; Eosinophils% 3.4 % (0-5); Hematocrit 38.1 % (37-47); Hemoglobin 11.8 g/dL (12.0-15.0); Lymphocyte % 23.3 % (19-41); Mean Corpuscular Hgb 25.2 pg (27.0-32.0); Mean Corpuscular Volume 81.2 fL (81-99); Mean Platelet Vol. 9.7 fl (6.2-12.0); Monocyte# 1.42 X10^3/uL; NRBC Flagged by Analyzer 0 % (0-5); Neutrophil # 5.34 X10^3/uL (2.7-7.7); Neutrophil % 56.6 % (47-70); Platelet Count 409 K/mm3 (150-450); RBC Distribution Width CV 14.2 % (11.6-14.6); RBC Distribution Width SD 41.3 fl (35.1-43.9); Red Blood Count 4.69 M/mm3 (4.2-5.4); White Blood Count 9.4 K/mm3 (4.4-11.0)
[2024-10-06 08:19] LABS: ALB/GLOB Ratio 0.6 RATIO (0.9-2.4); AST(SGOT) 35 U/L (15-37); Alanine Aminotransfer ALT/SGPT 22 U/L (13-56); Alkaline Phosphatase 116 U/L (45-117); Anion Gap 8 (5-15); BUN 25 mg/dL (7-18); BUN/Creat Ratio 31.7 RATIO (10-20); Calcium,Total 9.5 mg/dL (8.5-10.1); Chloride 100 mmol/L (98-107); Creatinine, Serum 0.79 mg/dL (0.55-1.02); EST Glomerular Filtration Rate 74 mL/min (>60); Est Glom Filt Rate - Afr Amer 89 mL/min (>60); Estimated Creatinine Clearance 48.05 ml/min; Globulin 4.8 g/dL (2.2-4.2); Glucose 110 mg/dL (74-106); Magnesium 2.2 mg/dL (1.6-2.6); Phosphorus 3.3 mg/dL (2.5-4.9); Potassium 4.4 mmol/L (3.5-5.1); Protein, Total 7.8 g/dL (6.4-8.2); Sodium Level 133 mmol/L (136-145)
[2024-10-06] MEDS: Aspirin 81 MG TAB.CHEW PO (08:34)
[2024-10-06 10:00] VITALS: RESP 16
[2024-10-06 10:49] VITALS: PULSE 88
[2024-10-06] MEDS: Clopidogrel Bisulfate 75 MG Tablet PO (10:49)
[2024-10-06] MEDS: Metoprolol Tartrate 25 MG Tablet PO ×2 (10:49→21:25)
[2024-10-06] MEDS: Loratadine 10 MG Tablet PO (10:50)
[2024-10-06] MEDS: Losartan Potassium 25 MG Tablet PO (10:50)
[2024-10-06 17:00] VITALS: BMI 20.4
[2024-10-06] MEDS: 0.9% Saline Lock 10 ML Syringe IV (21:24)
[2024-10-06 21:25] VITALS: BP 137/62; PULSE 88
[2024-10-06] MEDS: Montelukast 10 MG Tablet PO (21:25)
[2024-10-06] MEDS: Atorvastatin Calcium 40 MG Tablet PO (21:25)
[2024-10-07 04:48] VITALS: BMI 20.4
[2024-10-07 06:00] VITALS: BP 152/63; PULSE 83; RESP 16; TEMP 36.5; O2SAT 95
[2024-10-07] MEDS: Levothyroxine 88 MCG Tablet PO (06:09)
[2024-10-07] MEDS: Sodium Chloride 1 GM Tablet PO ×2 (06:09→14:37)
[2024-10-07 08:35] VITALS: PULSE 83
[2024-10-07] MEDS: Loratadine 10 MG Tablet PO (08:35)
[2024-10-07] MEDS: Metoprolol Tartrate 25 MG Tablet PO (08:35)
[2024-10-07] MEDS: Aspirin 81 MG TAB.CHEW PO (08:35)
[2024-10-07] MEDS: Clopidogrel Bisulfate 75 MG Tablet PO (08:36)
[2024-10-07] MEDS: Losartan Potassium 25 MG Tablet PO (08:36)
[2024-10-07 10:39] VITALS: O2SAT 95
== END 2024-10-07 15:51 | disposition home or self-care (01) | DRG 57 ==
PROVIDERS: Admitting Provider Internal Medicine; PCP Nurse Practitioner Primary Care; Referring Provider Internal Medicine; Visit Provider Internal Medicine
DX: I69.351 Hemiplegia and hemiparesis following cerebral infarction affecting right dominant side (principal); E22.2 Syndrome of inappropriate secretion of antidiuretic hormone; J84.10 Pulmonary fibrosis, unspecified; I69.393 Ataxia following cerebral infarction; I10 Essential (primary) hypertension; E03.9 Hypothyroidism, unspecified; I69.391 Dysphagia following cerebral infarction; J30.9 Allergic rhinitis, unspecified; E78.5 Hyperlipidemia, unspecified; I69.392 Facial weakness following cerebral infarction; F09 Unspecified mental disorder due to known physiological condition; Z79.82 Long term (current) use of aspirin; Z79.890 Hormone replacement therapy; Z79.899 Other long term (current) drug therapy; Z79.02 Long term (current) use of antithrombotics/antiplatelets; R13.13 Dysphagia, pharyngeal phase; R71.8 Other abnormality of red blood cells
CPT/HCPCS: 36415; 74230; 80053; 82274; 83735; 84100; 84443; 85025; 92523; 92611; 97110; 97112; 97162; 97166; 97530; 97802; A4216

== ENCOUNTER 2024-11-23 05:32 | Day surgery (SDC) | payer SELFPAY ==
--- NOTE | 2024-11-18 13:01 | PAT.ANE_ITS ---
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 When Was Last Pacemaker Check QUESTION #4 FULL TEXT: You/Your Family Experience fever (hyperthermia) with Anesthesia Last Oral Intake Last Oral intake: Last Oral Intake NPO since Meds taken in AM with sips of water? Meds patient instructed to take am of surgery PONV PONV - forest manager: PONV - forest manager Female Yes 11/18/24 12:28 HX of Motion Sickness No 11/18/24 12:28 HX of N/V After Surgery No 11/18/24 12:28 Non-Smoker Yes 11/18/24 12:28 Duration of Surgery greater No 11/18/24 12:28 than 60 minutes Number of Risk Factors 2 11/18/24 12:28 PONV Score Moderate Risk 11/18/24 12:28 Height & Weight Height & Weight: Anesthesia: Height & Weight Height 5 ft 7 in 10/06/24 15:11 Respiratory Assessment Respiratory Assessment - forest manager: Respiratory Tract Infection Hx - forest manager Hx Respiratory Tract Infection No 11/18/24 12:28 STOP Sleep Apnea STOP Sleep Apnea - forest manager: STOP Sleep Apnea - forest manager Hx Hypertension Yes: CONTROLLED WITH MEDS 11/18/24 12:28 Hx Sleep Apnea No 11/18/24 12:28 CPAP BIPAP Do you snore loudly (louder No 11/18/24 12:28 than talking or can be heard Do you often feel tired/ No 11/18/24 12:28 fatigued/ sleepy during daytime? Has anyone observed you stop No 11/18/24 12:28 breathing during sleep? STOP Results Negative 11/18/24 12:28 QUESTION #5 FULL TEXT : Do you snore loudly (louder than talking or can be heard through closed doors)? 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 Specify any problems Hx of Preganancy in last 3 No 11/18/24 12:28 Months Nurse Filling Out Transfusion [id number] 11/18/24 12:28 & Questions: Date: 11/18/24 11/18/24 12:28 Time: 12:31 11/18/24 12:28 Patient unable to answer at this time (ie. confused, unrespo /Reproduction History /Reproductive History - forest manager: /Reproductive Hx- forest manager Hx Now Gestational Age (in weeks): EDC: Hx Hx Para Hx Section SAB [facility] Medical History (Updated 11/18/24 @ 12:36 by Arsen Mon) Wears glasses History of echocardiogram Dyslipidemia Microcytosis Allergic asthma TIA (transient ischemic attack) Hyponatremia Anemia Adverse drug reaction Respiratory insufficiency Hypothyroidism Sinus tachycardia seen on nuclear monitoring technician Hypertension Acute hyponatremia Hypoxia Pulmonary fibrosis Right lower lobe pneumonia Pulmonary fibrosis Hyperkalemia Chronic bronchitis Pain, joint, knee, left Opacities of both lungs present on chest x-ray SOB (shortness of breath) Fibrosis of lung Cough Home Medications ?Medication ?Instructions ?Recorded ?Last Taken ?Type levothyroxine 88 mcg capsule 88 mcg PO DAILY thyroid 05/23/23 Unknown History metoprolol tartrate 25 mg tablet 25 mg PO BID heart #60 tabs 03/16/24 10/05/24 Rx losartan 25 mg tablet 25 mg PO DAILY blood pressure 10/02/24 Unknown History sodium chloride 1,000 mg soluble 1,000 mg PO TID supplement 10/02/24 10/05/24 History tablet aspirin 81 mg chewable tablet 81 mg PO BREAKFAST heart health 10/04/24 10/05/24 Rx #90 tabs montelukast 10 mg tablet 10 mg PO QHS allergies 10/05/24 Unknown History acetaminophen 325 mg tablet 650 mg (2 x 325 mg) PO Q6H PRN PRN 10/07/24 Unknown Rx Pain Score 1-10 #1 TAB atorvastatin 40 mg tablet 40 mg PO QHS cholesterol #90 tabs 10/07/24 Unknown Rx Allergy/AdvReac Type Severity Reaction Status Date / Time Sulfa (Sulfonamide Allergy PT UNSURE Verified 11/18/24 12:21 Antibiotics) OF REACTION hydrochlorothiazide AdvReac Unknown Other Verified 11/18/24 12:21 Family History Sister Asthma Social History Smoking Status: Never smoker Audit: Pertinent Findings Pertinent Findings EKG Perinent findings: 10/02/2024 normal sinus rhythm 85 bpm septal infarct age undetermined Echo (EF%) pertinent findings: 10/03/2024 EF 75% bubble contrast positive for possible tiny PFO Pulmonary function results/spirometer pertinent findings: 05/31/2023 chronic cough moderate restrictive ventilatory impairment with symmetric reduction in diffusing capacity Additional pertinent findings: Chest x-ray 10/02/2024 stable bronchiectatic changes right lung with pleural parenchymal opacities left lung with focal areas of chronic inflammatory changes scarring stable Recommendation Anesthesia Recommendation Anesthesia recommendation: OPTIMIZED for anesthesia
[2024-11-23] VITALS (10 sets, daily range): BP systolic 91–147; BP diastolic 48–65; PULSE 67–78; RESP 14–18; TEMP 36.2–36.6; O2SAT 92–97; BMI 19.7
--- NOTE | 2024-11-23 06:29 | PCM.PRE.AN2 ---
ASA Classification* ASA Classification ASA Classification: 3 Assessment & Plan Anesthesia* Anesthesia Assessment Anesthesia Assessment: Discussed sedation and/or anesthesia options, risks, benefits, and alternatives with patient/parents/legal guardian/POA. Questions invited. The patient/parents/legal guardian/POA seems to understand and agrees to proceed with anesthesia plan. Reviewed the physical assessment, medical history, allergy history and patient home medications list prior to surgery/procedure/anesthetic and documented any changes. Performed airway and anesthesia risk assessments. Anesthesia Type Anesthesia Type: MAC History Source History Obtained from:: Patient and Chart Anesthesia Focused Assessment* Temperature: 97.8 F Pulse Rate: 78 Blood Pressure: 147/65 Respiratory Rate: 16 Pulse Ox: 97 Oxygen Delivery Method: Room Air Airway Assessment Mouth opens: >3 cm Mallampati Score: I Teeth Condition: Missing (Patient has several missing teeth. Rest of the teeth are tight) Neck Range of motion (ROM): Limited ROM (Slight decrease in extension) Focused Labs Anesthesia Preop lab: CBC WBC 9.4 K/mm3 (4.4-11.0) 10/06/24 05:37 RBC 4.69 M/mm3 (4.2-5.4) 10/06/24 05:37 Hgb 11.8 g/dL (12.0-15.0) L 10/06/24 05:37 Hct 38.1 % (37-47) 10/06/24 05:37 Plt Count 409 K/mm3 (150-450) 10/06/24 05:37 CHEMISTRY Potassium 4.4 mmol/L (3.5-5.1) 10/06/24 05:37 Sodium 133 mmol/L (136-145) L 10/06/24 05:37 Magnesium 2.2 mg/dL (1.6-2.6) 10/06/24 05:37 Phosphorus 3.3 mg/dL (2.5-4.9) 10/06/24 05:37 BUN 25 mg/dL (7-18) H 10/06/24 05:37 Creatinine 0.79 mg/dL (0.55-1.02) 10/06/24 05:37 Glucose 110 mg/dL (74-106) H 10/06/24 05:37 POC Glucose 111 mg/dL (74-106) H 10/02/24 20:34 TSH 2.980 uIU/mL (0.358-3.740) 10/06/24 05:37 COAG PT 12.7 SECONDS (11.7-14.9) 10/02/24 11:15 Pre-Assessment Diagnosis/Proposed Procedure Planned Operative Procedure(s): EGD Anesthesia History 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 When Was Last Pacemaker Check QUESTION #4 FULL TEXT: You/Your Family Experience fever (hyperthermia) with Anesthesia Any additional information?: Yes Any Problems With Anesthesia: No Cholinesterase deficiency: No You/your family experience fever (hyperthermia) with anesthesia: No Last Oral Intake Last Oral intake: Last Oral Intake NPO since 00:00 11/23/24 06:22 Meds taken in AM with sips of Yes 11/23/24 06:22 water? Meds patient instructed to levothyroxine 11/23/24 06:22 take am of surgery losartan metoprolol PONV PONV - distribution technician: PONV - distribution technician Female Yes 11/18/24 12:28 HX of Motion Sickness No 11/18/24 12:28 HX of N/V After Surgery No 11/18/24 12:28 Non-Smoker Yes 11/18/24 12:28 Duration of Surgery greater No 11/18/24 12:28 than 60 minutes Number of Risk Factors 2 11/18/24 12:28 PONV Score Moderate Risk 11/18/24 12:28 Height & Weight Height & Weight: Anesthesia: Height & Weight Height 5 ft 7 in 11/23/24 06:22 Weight: 57.2 kg 11/23/24 06:22 Body Mass Index (BMI) 19.7 11/23/24 06:22 Respiratory Assessment Respiratory Assessment - distribution technician: Respiratory Tract Infection Hx - distribution technician Hx Respiratory Tract Infection No 11/18/24 12:28 Any additional information?: Yes Hx Respiratory Tract Infection: Yes (Slight cough. Recent cold) STOP Sleep Apnea STOP Sleep Apnea - distribution technician: STOP Sleep Apnea - distribution technician Hx Hypertension Yes: CONTROLLED WITH MEDS 11/18/24 12:28 Hx Sleep Apnea No 11/18/24 12:28 CPAP BIPAP Do you snore loudly (louder No 11/18/24 12:28 than talking or can be heard Do you often feel tired/ No 11/18/24 12:28 fatigued/ sleepy during daytime? Has anyone observed you stop No 11/18/24 12:28 breathing during sleep? STOP Results Negative 11/18/24 12:28 QUESTION #5 FULL TEXT : Do you snore loudly (louder than talking or can be heard through closed doors)? 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 Specify any problems Hx of Preganancy in last 3 No 11/18/24 12:28 Months Nurse Filling Out Transfusion [email or web address] 11/18/24 12:28 & Questions: Date: 11/18/24 11/18/24 12:28 Time: 12:31 11/18/24 12:28 Patient unable to answer at this time (ie. confused, unrespo /Reproduction History /Reproductive History - distribution technician: /Reproductive Hx- distribution technician Hx Now Gestational Age (in weeks): EDC: Hx Hx Para Hx Section SAB PFSH Medical History (Updated 11/23/24 @ 06:[address] Mac Chappell MD) Wears glasses History of echocardiogram Dyslipidemia Microcytosis Allergic asthma TIA (transient ischemic attack) Hyponatremia Anemia Adverse drug reaction Respiratory insufficiency Hypothyroidism Sinus tachycardia seen on ekg monitor Hypertension Acute hyponatremia Hypoxia Pulmonary fibrosis Right lower lobe pneumonia Pulmonary fibrosis Hyperkalemia Chronic bronchitis Pain, joint, knee, left Opacities of both lungs present on chest x-ray SOB (shortness of breath) Fibrosis of lung Cough Home Medications ?Medication ?Instructions ?Recorded ?Last Taken ?Type levothyroxine 88 mcg capsule 88 mcg PO DAILY thyroid 05/23/23 11/23/24 History metoprolol tartrate 25 mg tablet 25 mg PO BID heart #60 tabs 03/16/24 11/23/24 Rx losartan 25 mg tablet 25 mg PO DAILY blood pressure 10/02/24 11/23/24 History sodium chloride 1,000 mg soluble 1,000 mg PO TID supplement 10/02/24 11/22/24 History tablet aspirin 81 mg chewable tablet 81 mg PO BREAKFAST heart health 10/04/24 11/19/24 Rx #90 tabs montelukast 10 mg tablet 10 mg PO QHS allergies 10/05/24 Unknown History acetaminophen 325 mg tablet 650 mg (2 x 325 mg) PO Q6H PRN PRN 10/07/24 Unknown Rx Pain Score 1-10 #1 TAB atorvastatin 40 mg tablet 40 mg PO QHS cholesterol #90 tabs 10/07/24 11/22/24 Rx Allergy/AdvReac Type Severity Reaction Status Date / Time Sulfa (Sulfonamide Allergy PT UNSURE Verified 11/18/24 12:21 Antibiotics) OF REACTION hydrochlorothiazide AdvReac Unknown Other Verified 11/18/24 12:21 Family History Sister Asthma Social History Smoking Status: Never smoker Review of Systems (Anesthesia) ROS Narrative System reviewed and no additional complaints, except as documented.
--- NOTE | 2024-11-23 06:30 | EGD_PTH ---
PATIENT: MARILU SANDY LOC: EN U#:[id number] AGE/SX: 84/F ROOM: RE11/23/[address]: Dr. James Brownlee DO : 1940 BED: DIS: 11/23/2024 SPEC #: [id number] RECD: 11/23/24 10:17 STATUS: SHABBIR JADE #: [id number] GHAZALA: 11/23/24 06:[address]: James Brownlee DEPT: SURGICAL PATHOLOGY RECD BY: Bessy Gallardo ENTERED: 11/23/24 11:11 SP TYPE: EGD BIOPSY OT DR: Cally Ludwig, BASEBALL PLAYER-C Tissues: Esophagus, NOS Procedures: Special Stain Group I Surgery Specimen Level IV Alcian Blue/PAS (control) HEADER OPERATION: EGD with biopsy and dilation PRE-OP DIAGNOSIS: Dysphagia TISSUE SUBMITTED: Distal esophagus biopsy MICROSCOPIC DIAGNOSIS Distal esophagus, biopsy: Fragments of gastroesophageal mucosa with chronic inflammation. Intestinal metaplasia (goblet cell metaplasia) is not identified. See comment. 11/24/2024 COMMENT Alcian blue/PAS stain with matched control is used in the evaluation of the specimen. MICROSCOPIC DESCRIPTION Slides are reviewed. GROSS DESCRIPTION Received in fixative is one container labeled with the patient's name and designated Distal esophagus biopsy. The specimen consists of multiple irregular fragments of light vyas soft tissue that in aggregate measure 0.8 x 0.3 x 0.2 cm. The specimen is totally submitted in one cassette. 11/23/2024 TC:3 CPT:42367,83300
--- NOTE | 2024-11-23 06:46 | HP.PCM_ITS ---
HPI - General General Date of Admission: 11/23/24 Date of Service: 11/23/24 Chief Complaint: Dysphagia HPI Narrative MARILU SANDY, is a 84 F who presents for the evaluation of esophageal dysphagia. She is status post acute CVA and has been having some oropharyngeal and esophageal dysphagia. [facility] Medical History Wears glasses History of echocardiogram Dyslipidemia Microcytosis Allergic asthma TIA (transient ischemic attack) Hyponatremia Anemia Adverse drug reaction Respiratory insufficiency Hypothyroidism Sinus tachycardia seen on monitoring manager Hypertension Acute hyponatremia Hypoxia Pulmonary fibrosis Right lower lobe pneumonia Pulmonary fibrosis Hyperkalemia Chronic bronchitis Pain, joint, knee, left Opacities of both lungs present on chest x-ray SOB (shortness of breath) Fibrosis of lung Cough Home Medications ?Medication ?Instructions ?Recorded ?Last Taken ?Type levothyroxine 88 mcg capsule 88 mcg PO DAILY thyroid 05/23/23 11/23/24 History metoprolol tartrate 25 mg tablet 25 mg PO BID heart #60 tabs 03/16/24 11/23/24 Rx losartan 25 mg tablet 25 mg PO DAILY blood pressure 10/02/24 11/23/24 History sodium chloride 1,000 mg soluble 1,000 mg PO TID supplement 10/02/24 11/22/24 History tablet aspirin 81 mg chewable tablet 81 mg PO BREAKFAST heart health 10/04/24 11/19/24 Rx #90 tabs montelukast 10 mg tablet 10 mg PO QHS allergies 10/05/24 Unknown History acetaminophen 325 mg tablet 650 mg (2 x 325 mg) PO Q6H PRN PRN 10/07/24 Unknown Rx Pain Score 1-10 #1 TAB atorvastatin 40 mg tablet 40 mg PO QHS cholesterol #90 tabs 10/07/24 11/22/24 Rx Allergy/AdvReac Type Severity Reaction Status Date / Time Sulfa (Sulfonamide Allergy PT UNSURE Verified 11/18/24 12:21 Antibiotics) OF REACTION hydrochlorothiazide AdvReac Unknown Other Verified 11/18/24 12:21 Family History Sister Asthma Social History Smoking Status: Never smoker ROS Constitutional Constitutional: Denies fatigue, fever(s), poor appetite, weight gain or weight loss Gastrointestinal Gastrointestinal: Denies belching, bloating, change in bowel habits, change in stool character, chewing difficulty, coffee ground emesis, constipation, cramping, diarrhea, dyspepsia, dysphagia, early satiety, excessive flatus, fecal incontinence, heartburn, hematemesis, hematochezia, hemorrhoids, loose stools, melena, nausea, odynophagia, rectal bleeding, tenesmus, vomiting or weight changes Vital Signs Vital Signs Vital Signs: 11/23/24 06:19 11/23/24 06:22 11/23/24 06:39 Temperature 97.8 F 97.8 F Temperature Source Temporal Pulse Rate 78 78 Respiratory Rate 16 16 Respiratory Pattern Normal Blood Pressure 147/65 H 147/65 H Blood Pressure Mean 92 Blood Pressure Source Monitor Blood Pressure Position Semi-Fowlers Blood Pressure Location Left Arm Pulse Ox 97 97 Oxygen Delivery Method Room Air Room Air Weight Weight: 126 lb 1.671 oz Body Mass Index (BMI) 19.7 Physical Exam Const alert, oriented x3, no apparent distress and healthy appearing General Appearance: cooperative GI normal to inspection, nondistended, normoactive bowel sounds, soft to palpation, non-tender and non-distended Percussion: normal to percussion Rectal Exam: deferred Assessment & Plan Assessment/Plan (1) Esophageal dysmotility: (2) Dysphagia: QUALIFIERS: Dysphagia type: unspecified Qualified Code(s): R13.10 - Dysphagia, unspecified (3) Ischemic cerebrovascular accident (CVA): PLAN: Plan (1) Esophageal dysmotility: Status: Acute Plan: It does appear she has an esophageal stricture such as secondary to achalasia on her swallow study. We will perform an upper endoscopy to evaluate upper GI tract. She may also benefit from manometry to see if there is a correctable esophageal motility disorder.
--- NOTE | 2024-11-23 07:08 | PCM.POST.ANE ---
Anesthesia: Postop Eval I Current Vital Signs Temperature: 97.5 F Pulse Rate: 72 Blood Pressure: 104/52 Respiratory Rate: 16 Pulse Ox: 96 Oxygen Delivery Method: Room Air Assessment Airway patent: Yes Spontaneous unlabored respirations: Yes Mental status: Asleep nausea: No Vomiting: No Anesthesia Complication: No Fluid Hydration Crystalloid volume administer (ml): 30 Total IV fluid infused: 30 Progress Note Anesthesia document: Postop Eval 1 completed: Yes
--- NOTE | 2024-11-23 07:11 | OP.CCLET_ITS ---
11/23/2024 Cally Ludwig Re : Upper GI endoscopy procedure for Raquel Posadas Dear Oziel This procedure was performed on Saturday, November 23, 2024. My impressions and recommendations are as follows: Impressions : - Moderate Schatzki ring. Dilated. - Z-line irregular, 40 cm from the incisors. Biopsied. - Medium-sized hiatal hernia. - No gross lesions in the entire stomach. - Normal first portion of the duodenum. Recommendations : - Discharge patient to home. - Resume previous diet. - Continue present medications. - Await pathology results. My findings are described in the full procedure note, which is enclosed. If I can be of further assistance, please feel free to contact me at . Sincerely, James Brownlee, 11/23/2024 7:10:12 AM This report has been signed electronically.
--- NOTE | 2024-11-23 07:11 | OP.EGD_ITS ---
Patient Name: Rauqel Posadas Procedure Date: 11/23/2024 6:12 AM Date of : 1940 Age: 84 Procedure: Upper GI endoscopy Indications: Dysphagia Providers: James Brownlee DO Referring MD: Cally Ludwig Medicines: Monitored Anesthesia Care Patient Profile: This is an 84 year old female. Refer to note in patient chart for documentation of history and physical. Patient has symptoms of chronic dysphagia and dysphagia with solids. Complications: No immediate complications. Procedure: Pre-Anesthesia Assessment: - Prior to the procedure, a History and Physical was performed, and patient medications and allergies were reviewed. The patient is competent. The risks and benefits of the procedure and the sedation options and risks were discussed with the patient. All questions were answered and informed consent was obtained. Patient identification and proposed procedure were verified by the physician in the pre-procedure area. Mental Status Examination: alert and oriented. Airway Examination: normal oropharyngeal airway and neck mobility. Respiratory Examination: clear to auscultation. CV Examination: normal. Prophylactic Antibiotics: The patient does not require prophylactic antibiotics. Prior Anticoagulants: The patient has taken no anticoagulant or antiplatelet agents except for NSAID medication. ASA Grade Assessment: II - A patient with mild systemic disease. After reviewing the risks and benefits, the patient was deemed in satisfactory condition to undergo the procedure. The anesthesia plan was to use monitored anesthesia care (MAC). Immediately prior to administration of medications, the patient was re-assessed for adequacy to receive sedatives. The heart rate, respiratory rate, oxygen saturations, blood pressure, adequacy of pulmonary ventilation, and response to care were monitored throughout the procedure. The physical status of the patient was re-assessed after the procedure. After obtaining informed consent, the endoscope was passed under direct vision. Throughout the procedure, the patient's blood pressure, pulse, and oxygen saturations were monitored continuously. The Endoscope was introduced through the mouth, and advanced to the second part of duodenum. The upper GI endoscopy was accomplished without difficulty. The patient tolerated the procedure well. Scope In: 6:55:49 AM Scope Out: 6:59:52 AM Total Procedure Duration Time 0 hours 4 minutes 3 seconds Findings: A moderate Schatzki ring was found at the gastroesophageal junction. A guidewire was placed and the scope was withdrawn. Dilation was performed with a Savary dilator with no resistance at 57 Fr. The dilation site was examined and showed moderate mucosal disruption. Estimated blood loss was minimal. The Z-line was irregular and was found 40 cm from the incisors. Biopsies were taken with a cold forceps for histology. Verification of patient identification for the specimen was done. Estimated blood loss was minimal. A medium-sized hiatal hernia was present. No gross lesions were noted in the entire examined stomach. The first portion of the duodenum was normal. Impression: - Moderate Schatzki ring. Dilated. - Z-line irregular, 40 cm from the incisors. Biopsied. - Medium-sized hiatal hernia. - No gross lesions in the entire stomach. - Normal first portion of the duodenum. Recommendation: - Discharge patient to home. - Resume previous diet. - Continue present medications. - Await pathology results. Procedure Code(s): --- Professional --- 42883, Esophagogastroduodenoscopy, flexible, transoral; with insertion of guide wire followed by passage of dilator(s) through esophagus over guide wire 34829, 59,51, Esophagogastroduodenoscopy, flexible, transoral; with biopsy, single or multiple CPT copyright 2021 [employer]. All rights reserved. The codes documented in this report are preliminary and upon river rat review may be revised to meet current compliance requirements. James Brownlee DO 11/23/2024 7:10:12 AM This report has been signed electronically. Number of Addenda: 0 Note Initiated On: 11/23/2024 6:12 AM
--- NOTE | 2024-11-23 08:30 | PCM.POSTANE2 ---
Anesthesia Postop Eval I Sum Postop Eval Completion status Anesthesia document: Postop Eval 1 completed: Yes Anesthesia Postop Eval I Summary Anesthesia Postop Eval I Summary: Anesthesia Postop Eval I: Assessment Summary Airway patent Yes 11/23/24 07:09 [email or web address] Spontaneous unlabored Yes 11/23/24 07:09 [email or web address] respirations Mental status Asleep 11/23/24 07:09 [email or web address] nausea No 11/23/24 07:09 [email or web address] Vomiting No 11/23/24 07:09 [email or web address] Anesthesia Postop Eval I: Fluid Summary Crystalloid volume administer 30 11/23/24 07:09 [email or web address] (ml) Colloids volume administered ( ml) Blood Product volume administered (ml) Total IV fluid infused 30 11/23/24 07:09 [email or web address] Anesthesia Postop Eval I: Summary Notes Anesthesia Complication No 11/23/24 07:09 [email or web address] Anesthesia Complication Comment: Post-operative progress note Anesthesia: Postop Eval II Evaluation Mental status: Awake and Calm Pain Level: 0 nausea: No Vomiting: No Complications Anesthesia Complication: No
== END 2024-11-23 08:07 | disposition home or self-care (01) ==
LOC: EN 05:38 → AC 05:38
PROVIDERS: PCP Nurse Practitioner Primary Care; Referring Provider Nurse Practitioner Primary Care; Visit Provider Internal Medicine Gastroenterology
PROC: 0DJ08ZZ Inspection of Upper Intestinal Tract, Via Natural or Artificial Opening Endoscopic (ICD-10-PCS; CPT 43235; principal; 2024-11-23 06:25)
DX: K22.2 Esophageal obstruction (principal); K44.9 Diaphragmatic hernia without obstruction or gangrene; I10 Essential (primary) hypertension; E78.5 Hyperlipidemia, unspecified; E03.9 Hypothyroidism, unspecified; Z88.2 Allergy status to sulfonamides; Z86.73 Personal history of transient ischemic attack (TIA), and cerebral infarction without residual deficits; Z79.82 Long term (current) use of aspirin; Z79.890 Hormone replacement therapy; Z79.899 Other long term (current) drug therapy
CPT/HCPCS: 43248; 43239; 88305; 88312; A4216; C1769; J2405

== ENCOUNTER → 2025-03-24 | Outpatient (CLI) | payer SELFPAY ==
[2025-03-24 08:00] VITALS: PULSE 103; PULSE 106; PULSE 108; PULSE 111; PULSE 93; PULSE 95; PULSE 98; O2SAT 86; O2SAT 91; O2SAT 92; O2SAT 95; O2SAT 98
--- NOTE | 2025-03-29 12:31 | PCM.PSN.6M ---
PSN 6 Minute Walk Test 6 Minute Walk Test 6 Minute Walk Test: 6 Minute Walk Test PSN:6-Minute Walk Test Start: 03/24/25 07:22 Freq: Status: Active Protocol: [id number] Document 03/24/25 08:00 YARITZA (Rec: 03/24/25 08:03 [email or web address] [id number]) 6 Minute Walk Test Date Performed 03/24/25 Time Performed 07:45 Height 5 ft 7 in Weight: 130 lb Weight in Pounds 130.[address]: Susan Pritchett Assistive device None used: Pre-test Oxygen Delivery Room Air Method Pulse Ox (%) 92 Pulse Rate (60-100 95 beats/min) Dyspnea Noa Scale ( 0 0-10) Exertion Noa Scale 6 (6-20) 1st minute Oxygen Delivery Room Air Method Pulse Ox (%) 91 Pulse Rate (60-100 103 H beats/min) 2nd minute Oxygen Delivery Room Air Method Pulse Ox (%) 86 Pulse Rate (60-100 111 H beats/min) Dyspnea Noa Scale ( 4 0-10) 3rd minute Oxygen Flow Rate (L/ 2 min) (L/min) Oxygen Delivery Nasal Cannula Method Pulse Ox (%) 98 Pulse Rate (60-100 95 beats/min) 4th minute Oxygen Flow Rate (L/ 2 min) (L/min) Oxygen Delivery Nasal Cannula Method Pulse Ox (%) 95 Pulse Rate (60-100 98 beats/min) 5th minute Oxygen Flow Rate (L/ 2 min) (L/min) Oxygen Delivery Nasal Cannula Method Pulse Ox (%) 92 Pulse Rate (60-100 106 H beats/min) 6th minute Oxygen Flow Rate (L/ 2 min) (L/min) Oxygen Delivery Nasal Cannula Method Pulse Ox (%) 91 Pulse Rate (60-100 108 H beats/min) Dyspnea Noa Scale ( 3 0-10) Exertion Noa Scale 13 (6-20) Post-test Oxygen Flow Rate (L/ 2 min) (L/min) Oxygen Delivery Nasal Cannula Method Pulse Ox (%) 98 Pulse Rate (60-100 93 beats/min) Full Laps Walked 15 Partial Lap, Number 6 of Tiles Walked Total Distance 891 Walked (ft) Interpretation Interpretation: The patient ambulated 891 feet over the course of 6 minutes beginning on room air without assistive devices. Pretesting oxygen saturation was noted to be 92% on room air. With ambulation, the zafar oxygen saturation was 86%, requiring 2 L/min of supplemental oxygen to achieve and maintain appropriate exertional oxygen saturations. Recommendations Recommendations: 2 L/min of supplemental oxygen should be utilized with exertion.
== END | disposition home or self-care (01) ==
PROVIDERS: PCP Nurse Practitioner Primary Care; Referring Provider Nurse Practitioner Family; Visit Provider Nurse Practitioner Family
DX: R05.3 Chronic cough (principal)
CPT/HCPCS: 94060; 94618; 94726; 94729

== ENCOUNTER → 2025-04-01 | Outpatient (CLI) | payer SELFPAY ==
[2025-04-01 15:18] LABS: Absolute Lymphocyte Count 2.06 X10^3/uL (0.83-4.51); Absolute Neutrophil Count 7.4 X10^3/uL (2.0-7.7); Basophil# 0.07 X10^3/uL; Basophil% 0.6 % (0-1); Eosinophil# 0.07 X10^3/uL; Eosinophils% 0.6 % (0-5); Hematocrit 35.7 % (37-47); Hemoglobin 11.5 g/dL (12.0-15.0); Lymphocyte # 2.06 X10^3/ul (0.83-4.51); Mean Corp Hgb Conc 32.2 g/dL (32-36); Mean Corpuscular Hgb 26.3 pg (27.0-32.0); Mean Corpuscular Volume 81.7 fL (81-99); Mean Platelet Vol. 9.7 fl (6.2-12.0); Monocyte# 1.18 X10^3/uL; Monocyte% 10.9 % (0-10); NRBC Flagged by Analyzer 0 % (0-5); Neutrophil # 7.41 X10^3/uL (2.7-7.7); Neutrophil % 68.3 % (47-70); Platelet Count 391 K/mm3 (150-450); RBC Distribution Width CV 14.1 % (11.6-14.6); RBC Distribution Width SD 41.7 fl (35.1-43.9); Red Blood Count 4.37 M/mm3 (4.2-5.4); White Blood Count 10.9 K/mm3 (4.4-11.0)
== END | disposition home or self-care (01) ==
LOC: LAB 14:40
PROVIDERS: Nurse Practitioner Family; PCP Nurse Practitioner Primary Care; Referring Provider Nurse Practitioner Primary Care; Visit Provider Nurse Practitioner Primary Care
DX: R06.02 Shortness of breath (principal)
CPT/HCPCS: 36415; 85025